=== PATIENT | male | born 1975 | race Caucasian/White ===

== ENCOUNTER 2021-12-02 11:36 | Inpatient (IN) | payer OTHER ==
[~2021-12-02] VITALS: Ht 180.3 cm; Wt 66.5 kg
[~2021-12-02 11:36] MED LIST: BACTRIM DS TAB1 EACH PO; CEPHALEXIN500 M1 PO; LANTUS100 UNITS/ SUB-Q; NOVOLOG FL100 UNIT/1 SUB-Q; ULTRAM50 MG PO
--- OUTSIDE RECORDS SUMMARY | 2021-12-02 11:38 | XMS ---
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 Care History Medical/Surgical 11/27/2021 [facility] - CHW RECEIVED CASE MANAGEMENT CONSULT TO HELP PATIENT FIND A PCP, INSURANCE AND FOLLOW UP WITH WOUND CARE . -PATIENT HAS DMAP THAT IS NOW ACTIVE. -CHW CALLED PATIENT 2X AND LEFT A VOICEMAIL. WAITING ON A RETURN CALL. Dennys VISIT COUNT (12 MO.) [facility] [address] [place] [address] TOTAL 4 NOTE: Visits indicate total known visits. 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 (L) LEG PAIN 0. Anesthesia of skin 0. Pain in left leg 1. Type 2 diabetes mellitus with hyperglycemia 2. 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 Nicotine dependence, cigarettes, uncomplicated 2. Allergy status to penicillin 2. Cellulitis of left lower limb 2. snf (current) use of insulin INPATIENT VISIT TRACKING (12 MO.) No inpatient visits to display in this time frame [email or web address]
[2021-12-02] MEDS ORDERED: NEURONTIN100 MG PO (12:02)
--- NOTE | 2021-12-02 16:45 | NUR ---
REPORT RECEIVED FROM FULL TIME PARAMEDIC. PT. ARRIVED VIA STRETCHER. PT. REPORTS 10/10 PAIN IN LEFT FOOT THAT IS BURNING. ADMIN IVP DILAUDID. HE IS ALERT AND ORIENTED. IV WNL AND FLUSHES. PEDAL PULSE WEAK IN LLE, WARM AND MADELAINE. SCABS SCATTERED ON RLE. THIRD TOE ON LEFT FOOT IS BLACK/PURPLE AND PT HAS NO FEELING. FOOT ELEVATED WITH PILLOWS. VITALS STABLE. PT. DENIES NAUSEA. IV SITE WNL AND FLUSHES. PT. ASSISTED WITH AMBULATING TO THE RESTROOM AND TOLERATED WELL. DISCUSSED SAFETY, MEDS, POC. PT. LEFT RESTING WITH CALL LIGHT IN REACH.
--- NOTE | 2021-12-02 19:14 | NUR ---
RECEIVED REPORT FROM DAY SHIFT RN. PATIENT IS RESTING IN BED WITH EYES CLOSED, RR 17. CALL LIGHT IN REACH.
--- NOTE | 2021-12-02 20:22 | NUR ---
PATIENT RATES PAIN AT A 10/10 IN HIS LEFT FOOT. MD AT THE [facility] TO ASSES TOE. IV INFUSING PER ORDER.
--- NOTE | 2021-12-02 20:55 | NUR ---
PATIENT ASSESEMENT COMPLETED. MD AT THE BEDSIDE AND REMOVED PATIENTS 3RD TOE ON LEFT FOOT. ASSISTED MD. PATIENT TOLERATED ACTIVITY WELL. VITALS TAKEN AND RECORDED. INTAKE AND OUTPUT RECORDED. IV INFUSING PER ORDER. PATIENT DENIES ANY NEEDS. CALL LIGHT IN REACH. ALL CULTURES AND SPECIMENS LABELED AND SENT TO LAB PER MD ORDER. SCHDULED MEDICATIONS GIVEN PER ORDER.
--- NOTE | 2021-12-02 22:07 | NUR ---
PATIENT REPORTS 10/10 PAIN IN LEFT LOW EXT. PATIENT GIVEN PRN PAIN MEDICATION PER ORDER. IV INFUSING PER ORDER. PATIENT DENIES ANY FURTHER NEEDS. CALL LIGHT IN REACH.
--- NOTE | 2021-12-02 23:49 | NUR ---
PATIENT IS RESTING IN BED WITH EYES CLSOED, RR 16. CALL LIGHT IN REACH.
--- NOTE | 2021-12-03 00:06 | NUR ---
PATIENT RATES PAIN AT A10/10 IN HIS LLE. PATIENT GIVEN PRN PAIN MEDICATION PER ORDER. PATIENT DENIES ANY FURTHER NEEDS. CALL LIGHT IN REACH. IV INFUSING PER ORDER.
--- NOTE | 2021-12-03 00:59 | NUR ---
PATIENT REPOSITIONED IN BED. PATIENT PROVIDED SIPS OF WATER. NO FURTHER NEEDS NOTED. CALL LIGHT IN REACH.
--- NOTE | 2021-12-03 01:56 | NUR ---
VITALS TAKEN AND RECORDED. INTAKE AND OUTPUT RECORDED. PATIENT REPORTS 10/10 PAIN. PATIENT GIVEN PRN PAIN MEDICATION PER ORDER. IV INFUSING PER ORDER.
--- NOTE | 2021-12-03 03:36 | NUR ---
PATIENT IS RESTING IN BED. NO NEEDS NOTED. CALL LIGHT IN REACH.
--- NOTE | 2021-12-03 06:17 | NUR ---
PATIENT ASSISTED TO THE RESTROOM A SBA. PATIENT ABLE TO VOID. PATIENT IS BACK IN BED RESTING IN BED. VITALS TAKEN AND RECORDED. INTAKE AND OUTPUT RECORDED. IV INFUSING. PATIENTS DRESSING REMOVED OFF LEFT FOOT PER MD ORDER. PATIENT REPORTS 10/10 PAIN IN HIS LEFT LOW EXT. PRN PAIN MEDICATION GIVEN PER ORDER. NO FURHTER NEEDS NOTED. CALL LIGHT IN REACH.
--- NOTE | 2021-12-03 06:42 | NUR ---
MD AT BEDSIDE. ASSISTED MD IN DRESSING CHANGE. PATIENT TOLERATED DRESSING CHANGE WELL. NO NEEDS NOTED. CALL LIGHT IN REACH.
--- NOTE | 2021-12-03 07:30 | NUR ---
PATIENT RESTING IN BED VISITING WITH HIS SISTER. PATIENT REQUESTING PAIN MEDS FOR 10/10 FOOT PAIN. REPORT GIVEN TO THIS RN BY JEANNE CALDWELL. PATIENT HAS NO OTHER CARE NEEDS AT THIS TIME. THIS RN WILL BE BACK WITH PAIN MEDICATION.
--- NOTE | 2021-12-03 08:00 | NUR ---
PATIENT GIVEN 1MG SIVP DILAUDID FOR LLE PAIN 07/15. NO AM INSULIN NEEDED. PATIENT IS SITTING UP IN BED TO EAT BREAKFAST. COFFE GIVEN TO PATIENT AND HIS SISTER. CALL LIGHT IN REACH AND NO OTHER NEEDS AT THIS TIME.
[2021-12-03] MEDS ORDERED: GABAPENTIN300 MG PO (08:29)
[2021-12-03] MEDS ORDERED: TRAMADOL HCL50 MG PO (08:41)
--- NOTE | 2021-12-03 09:29 | NUR ---
PATIENT SITTING UP IN BED RESTING AT THIS TIME, VISITOR IN ROOM. PATIENT IND. IN ROOM. VITALS AND I&O'S CHARTED. RN IN ROOM AT THIS TIME. CALL LIGHT IN REACH. NO FURTHER NEEDS AT THIS TIME.
--- NOTE | 2021-12-03 09:30 | NUR ---
PATIENT JUST FINISHED WALKING AROUND THE MED/SURG UNIT FOR SOME EXERCISE. PATIENT CALLED FOR PAIN MEDICATION 10/10 PAIN IN LLE. PO PAIN MEDICATION GIVEN. PATIENT ORDERED LUNCH AND DINNER. VS ARE STABLE. PATIENT HAS NO OTHER NEEDS AT THIS TIME. CALL LIGHT IS IN REACH AND PATIENT'S SISTER IS AT BEDSIDE.
--- NOTE | 2021-12-03 10:30 | NUR ---
INTO PATIENT ROOM TO COMPLETE ASSESSMENT. PATIENT IN MRI
[2021-12-03] MEDS ORDERED: LANTUS100 UNITS/ SUB-Q (10:31)
--- NOTE | 2021-12-03 10:31 | NUR ---
MED REC COMPLETE
--- NOTE | 2021-12-03 10:36 | NUR ---
THIS RN SALINE LOCKED PATIENT'S IV TO GO TO MRI. MRI WILL BE HERE SHORTLY WITH A WHEELCHAIR. PATIENT DENIES ANY OTHER CARE NEEDS AT THIS TIME. PATIENT VISITING WITH HIS SISTER.
--- NOTE | 2021-12-03 11:12 | NUR ---
PATIENT REMAINS IN MRI AT THIS TIME. SISTER REMAINS IN PATIENT'S ROOM.
--- NOTE | 2021-12-03 12:00 | NUR ---
IV VANCO INFUSING FOR ONE HOUR. DR. HOLCOMB IN TO SEE PATIENT.
--- NOTE | 2021-12-03 12:35 | NUR ---
PT HAS BEEN TAKEN TO IMAGING FOR MRI. WILL CHECK BACK
--- NOTE | 2021-12-03 13:27 | NUR ---
INTO PATIENTS ROOM TO COMPLETE ASSESSMENT, PATIENT SLEEPING WITH LIGHTS OUT. PATIENT DOES NOT WAKE TO VOICE, WILL RETURN TO ASSESS.
--- NOTE | 2021-12-03 14:30 | NUR ---
INTO ROOM TO SPEAK WITH PATIENTS DAUGHTERS YOSELIN AND JOSE. DISCUSSED PATIENT RETURN TO [facility] TOMORROW. PATIENTS DAUGHTER ASKING IF [facility] HAS PLANS TO RESTART PT/OT WITH THE PATIENT THEY FEEL SHE WAS DISCHARGED FROM THE PROGRAM TOO SOON. THEY ADVISED THAT THEY ARE AWARE THAT FULL RECOVERY OF THE PATIENT AND AGGRESSIVE THERAPIES ARE NOT THE GOAL, BUT THEY WOULD LIKE FOR THEIR MOTHER TO BE ABLE TO FEED HERSELF IF POSSIBLE. THIS RN DISCUSSED WITH THE FAMILY THAT I WILL SPEAK WITH DR. HOLCOMB ABOUT ORDERING PT/OT ON DISCHARGE AND SPEAK WITH THE T STAFF PRIOR TO PATIENT DISCHARGE. PATIENTS DAUGHTERS STATES THAT STAFF AT [facility] WOULD OFTEN GIVE THE PATIENT THE CHOICE TO PARTICIPATE IN THERAPY OR STAY IN BED AND THEY FEEL THERE WAS LITTLE ENCOURAGEMENT FOR HER TO PARTICIPATE. PATIENTS DAUGHTERS WOULD ALSO LIKE A PLAN TO BE IN PLACE FOR ADMINISTRATION OF MEDICATIONS WHEN THE PATIENT RETURNS TO [facility] THE PATIENTS ABILITY TO SWALLOW HAS CHANGED. ADVISED PATIENT DAUGHTER THAT I WILL SPEAK WITH DR. HOLCOMB AND SANG ANGEL FOR DISCHARGE PLAN.
--- NOTE | 2021-12-03 14:47 | NUR ---
PATIENT IN BED TALKING WITH CASE MANAGMENT AT THIS TIME. VITALS AND I&O'S CHARTED. CALL LIGHT IN REACH. NO FURTHER NEEDS AT THIS TIME.
--- NOTE | 2021-12-03 15:00 | NUR ---
INTO PATIENT ROOM, PATIENT AWAKE TALKING ON THE PHONE. CASE MANAGEMENT ASSESSMENT COMPLETED. PATIENT STATES HE IS CURRENTLY LIVING WITH A FRIEND WHO HE REFERS TO HIS "FATHER." PATIENT RECENTLY MOVED UP HERE FROM [place] ABOUT 8 WEEKS AGO. PATIENT HAS BEEN SET UP WITH [employer] AND HAS A PENDING APPOINTMENT WITH GENNARO WILLIAMSON PA-C TO ESTABLISH CARE. PATIENT REQUESTING INFORMATION ABOUT SERVICES PROVIDED WITH HIS [employer] COVERAGE, ASSISTANCE WITH MEDICATION PAYMENT AND ASSISTANCE WITH ECONOMIC SUPPORT IN GENERAL. REFERRAL PLACED TO [facility] TO ASSIST PATIENT WHEN DISCHARGED. PATIENT STATES HE MOVED TO THE FROM [facility] 6 YEARS AGO AND HAS HAD DIFFICULTY WITH AQUIRING ASSISTANCE THEY TELL HIM HE HAS "NO WORK CREDITS." PATIENT DOES NOT NORMALLY REQUIRE DME, BUT IS HAVING DIFFICULTY AMBULATING POST AMPUTATION. DEMOGRAPHIC INFORMATION CONFIRMED. PATIENT STATES THAT DR. DE GUZMAN PLANS TO RETURN PATIENT TO OR BASED ON THE MRI HE HAD TODAY. DISCUSSED OPTIONS FOR COMMUNITY ASSISTANCE WITH THE PATIENT. WILL CONTINUE TO MONITOR FOR DISCHARGE NEEDS FOLLOWING UPCOMING SURGICAL PROCEDURE.
--- NOTE | 2021-12-03 15:52 | NUR ---
PATIENT REQQUESTED A NEW IV HIS ALARMS ALL THE TIME BEING IN THE AC SPACE OF HIS RIGHT ARM. THAT IV WAS SALINE LOCKED AND A NEW 22G IV STARTED IN THE RFA WITH 2 ATTEMPTS. 1MG SIVP DILAUDID GIVEN FOR LLE PAIN 10/10. PATIENT REMAINS CALM AND NO FACIAL GRIMACE. PATIENT DENIED ANY OTHER CARE NEEDS FROM ME AT THIS TIME. CALL LIGHT IN REACH.
--- NOTE | 2021-12-03 17:22 | NUR ---
PATIENT GIVEN 1MG SIVP DILAUDID FOR 10/10 LEFT FOOT PAIN. HAS AARIVED TO CHANGE THE PATIENT'S DRESSING AND TALK WITH HIM ABOUT SURGICAL OPTIONS. CALL SAMARA GOMEZ.
--- NOTE | 2021-12-03 17:50 | NUR ---
PATIENT GIVEN 10MG PO OXYCODONE FOR 10/10 LEFT FOOT PAIN AFTER JUST CHANGED THE DRESSING. TALKING WITH PATIENT ABOUT SURGICAL OPTIONS AT THIS TIME. CALL LIGHT IN REACH.
--- NOTE | 2021-12-03 19:24 | NUR ---
PATIENT CURRENTLY UP WALKING THE MED/SRG UNIT WITH HIS IV POLE. THIS RN GAVE SHIFT REPORT TO JEANNE CALDWELL. THIS RN SIGNING OFF PATIENT'S CARE AT THIS TIME.
--- NOTE | 2021-12-03 19:31 | NUR ---
RECEIVED REPORT FROM DAY SHIFT RN. PATIENT IS RESTING IN BED FAMILY PRESENT AT THE BEDSIDE. NO NEEDS NOTED. CALL LIGHT IN REACH.
--- NOTE | 2021-12-03 20:34 | EKG ---
[facility] [address] [facility] [place], [place] [address] Signed Normal sinus rhythm Normal ECG No previous ECGs available Confirmed by CHAZ HOLCOMB MD ([id number]) on 12/03/2021 8:34:45 PM Electronically Signed By: CHAZ HOLCOMB MD 12/03/212033 PATIENT NAME: MELISSA BENSON Electrocardiogram DATE OF : 73 PHYSICIAN: CHAZ HOLCOMB MD REPORT #: [id number] REPORT IS CONFIDENTIAL AND NOT TO BE RELEASED WITHOUT AUTHORIZATION
--- NOTE | 2021-12-03 21:20 | NUR ---
PATIENT ASSESMENT COMPELTED. DRESSING ON LLE C/D/I AND NO DRAINGE NOTED. VITALS TAKEN AND RECORDED. INTAKE AND OUPUT RECORDED. PATIENT RATES PAIN AT A 10/10 IN HIS LLE. PRN PAIN MEDICAITON GIVEN PER ORDER. PATIENTS IV INFUSING PER ORDER. PATIENT DENIES ANY NEEDS. CALL LIGHT IN REACH.
--- NOTE | 2021-12-03 22:14 | NUR ---
PATIENT RATES PAIN AT A 10/10 IN LLE. PRN PAIN MEDICATION GIVEN PER ORDER. PATIENT DENIES ANY FURTHER NEEDS. SNACK PROVIDED. CALL LIGHT IN REACH.
--- NOTE | 2021-12-03 23:52 | NUR ---
PATIENT REPORTS 10/10 PAIN IN HIS LLE. PATIENT GIVEN PRN PAIN MEDICATION PER ORDER. MELATONIN PRN GIVEN PER ORDER. PATIENTS IV INFUSING PER ORDER. NO FURTHER NEEDS NOTED. CALL LIGHT IN REACH.
--- NOTE | 2021-12-04 01:59 | NUR ---
PATIENT IS RESTING IN BED WITH EYES CLSOED, RR 19. CALL LIGHT IN REACH.
--- NOTE | 2021-12-04 04:00 | NUR ---
PATIENT RATES PAIN IN HIS LLE AT A 10/10. PRN PAIN MEDICATION GIVEN PER ORDER. PATIENT DENIES ANY FURTHER NEEDS CALL LIGHT IN REACH.
--- NOTE | 2021-12-04 05:47 | NUR ---
PATIENT RESTED WELL DURING THE LATER PART OF THE SHIFT. PATIENT IS ON A 60G CARB DIET, TOLERATING WELL, AND NO NAUSEA NOTED. PATIENT IS IND IN ROOM. PATIENT HAS BS. DRESSING IN LLE. BS CHECKS AND SS PER ORDER. ELLEVATE LLE ON PILLOWS. PATIENT IS ON RA. IV FLUIDS INFUSING PER ORDER
--- NOTE | 2021-12-04 06:11 | NUR ---
PATIENTS VITALS TAKEN AND RECORDED. INTAKE AND OUTPUT RECORDED. PATIENTS MORNING MEDICATIONS GIVEN PER ORDER. IV INFUSING PER ORDER. PATIENT RATES PAIN IN HIS LLE AT A 10/10. PRN PAIN MEDICATION GIVEN PER ORDER. NO FURTHER NEEDS CALL LIGHT IN REACH.
--- NOTE | 2021-12-04 07:30 | NUR ---
PATIENT TALKING WITH AND PATIENT HAS DECIDED TO HAVE A BKA SURGERY ON THE LEFT LEG AND WILL BE CONSULTED. THIS RN RECEIVED REPORT FROM JEANNE CALDWELL. PATIENT HAS NO CARE NEEDS FROM THIS RN AT THIS TIME. CALL LIGHT IN REACH.
--- NOTE | 2021-12-04 08:05 | NUR ---
IN TALKING WITH PATIENT ABOUT OTHER DIAGNOSTIC TESTS NEEDED BEFORE A DECISION WILL BE MADE TO DO SURGERY HERE. 1MG SIVP DILAUDED GIVEN FOR 10/10 PAIN. PATIENT'S PAIN IS ALWAYS 10/10 PER PATIENT. NO ELEVATED VS AND NO FACIAL GRIMACE NOTED. NO FURTHER CARE NEEDS NOTED FOR THIS RN TO PERFORM. CALL LIGHT IS IN REACH.
--- NOTE | 2021-12-04 08:45 | NUR ---
PATIENT SL AND PATIENT TAKEN TO DIAGNOSTIC IMAGING IN A WHEELCHAIR BY RADIALOGY STAFF.
--- NOTE | 2021-12-04 09:30 | NUR ---
Spoke with Almas and reviewed history. Dr. Perales in and explained to patient, does not plan on completing amputation as pt needs to go to a higher level of care for surgery. This is very upsetting to the pt. He begins complaining about the medical system and not getting medicaid. Dr. Perales finished and left, this also angers pt. Pt complains of not having enough pain medication. He is also stating he should just discharge. I attempted to give him options. Dr. Perales states he should keep his appt to establish care and have them refer him on to [place] for amputation. Pt wanting to have surgery immediately, we discussed this is a chronic wound. The Dr. would not be able to transfer him as he is not emergent. Pt does not understand this. Wanting to be tranferred as soon as possible, we then discussed even if we call the transfer center they would not accept him as there are not beds available for nonemergent patients. Again reviewed chronic vs acute. Pt feels the [place] has a very poor medical system. He then asks who he can get to help with dental care. I will give the numbers to him and for [facility] free transport. Pt then requesting help to apply for SSD. Encouraged pt to look up how to apply for SSI abd to call the 1800 number.
--- NOTE | 2021-12-04 10:53 | NUR ---
PATIENT HAVING 10/10 LLE PAIN. 1MG SIVP DILAUDID GIVEN FOR THE PAIN. PATIENT'S VANCO UP AND RUNNING. PATIENT ON THE PHONE TALKING TO HIS MOTHER IN [place]. CALL LIGHT IN REACH NO OTHER CARE NEEDS AT THIS TIME.
--- NOTE | 2021-12-04 12:47 | NUR ---
PATIENT IS UPSET HE SAYS BECAUSE HAS INFORMED HIM HE WILL BE GOING HOME, HAVE TO GET IN TO AN AAPOINTMENT WITH A PCP TO REFER HIM TO A SURGEON IN [place]. PATIENT SAYS HE MADE THE DECISION TO HAVE THE BKA DONE AND PREPARED HIS WHOLE FAMILY, AND NOW HE IS BEING SENT HOME. I TOLD PATIENT I DID NOT HAVE ANY DC ORDERS FOR HIM YET, AND THAT I KNOW THAT HAS TO BE VERY FRUSTRATING TO HIM. PATIENT HAVING 10/10 LLE PAIN. TOES ON LEFT FOOT STILL HAVE CAP REFILL LESS THAN 3 SECONDS AND 2ND TOE IS NOT RED, SO IT LOOKS LIKE THE ANTIBIOTICS ARE HELPING. 1MG SIVP DILAUDID GIVEN. PATIENT WALKED TO THE BATHROOM AND BACK TO BED WITH IV POLE AND HE IS GOING TO TRY AND TAKE A NAP. CALL LIGHT IN REACH, LUNCH TRAY REMOVED, PATIENT HAS NO OTHER CARE NEEDS AT THIS TIME.
--- NOTE | 2021-12-04 13:30 | NUR ---
Spoke with Dr. Best and she requests I contact [facility] for this pt for wound care and IV antibiotics, with need to have amputation when he can be seen by podiatry. Called [facility] Darlene of [place].
--- NOTE | 2021-12-04 13:59 | NUR ---
PATIENT IN BED RESTING AT THIS TIME. VITALS AND I&O'S CHARTED. CALL LIGHT IN REACH. NO FURTHER NEEDS AT THIS TIME.
--- NOTE | 2021-12-04 14:13 | NUR ---
PT ASLEEP-DID NOT WAKE TO KNOCK OR VOICE. JEANNE CORONA WILL KEEP ME INFORMED AND WILL TRY AGAIN TO VISIT
--- NOTE | 2021-12-04 15:45 | NUR ---
PATIENT CALLED FOR PAIN MEDICATION FOR LLE PAIN 07/15. 10MG PO OXYCODONE GIVEN. PATIENT ALSO REQUESTED A SNACK AND LOW CALORIE GRANOLA BAR AND DIET SODA GIVEN. PATIENT UP TO THE BATHROOM AND BACK TO BED INDEPENDENTLY. PATIENT DENIED ANY OTHER CARE NEEDS AT THIS TIME. CALL LIGHT IS IN REACH.
--- NOTE | 2021-12-04 16:01 | PATH ---
[facility] [address] [place], [place] [address] Signed SPECIMEN(S): A LEFT 3RD TOE SPECIMEN SOURCE: A. LEFT 3RD TOE CLINICAL HISTORY: Sepsis due to cellulitis, diabetic foot wound, gangrene. FINAL PATHOLOGIC DIAGNOSIS: Left third toe, amputation: - Skin, soft tissue, and bone with gangrenous necrosis and acute inflammation. - Soft-tissue margin involved with acute inflammation. - Bone margin free of inflammatory changes. DDF:em:C2NR MICROSCOPIC EXAMINATION: Histologic sections of all submitted blocks are examined by light microscopy. These findings, together with the gross examination, support the pathologic diagnosis. GROSS DESCRIPTION: The specimen, labeled "PC, left 3rd toe," is received in formalin and consists of a toe that measures 4.5 x 1.7 x 1.5 cm. The level of the amputation is within the MTP joint. The bone resection margin is articulated. Skin is violaceous and wrinkled. It shows a defect that measures 0.8 x 0.2 cm. Skin surgical margins are inked. Specimen is perpendicularly sectioned through the skin defect and upon sectioning shows pink-allen, soft underlying bone tissue. Specimen is left for decalcification in Decal Stat prior to processing. Perpendicular section and skin resection margins are submitted in single cassette (A1). JS (under the direct supervision of a pathologist) The Gross Description was prepared using a voice recognition system. The report was reviewed for accuracy; however, sound-alike word errors, addition and/or deletions may occur. If there is any question about this report, please contact Client Services. PERFORMING LABORATORY: The technical component was performed by [facility], [address] [place] [id number] ([facility]: Tamia Sherwood MD; CLIA# [id number]). Professional interpretation was performed by PATIENT NAME: MELISSA BENSON PATHOLOGY DATE OF : 73 REPORT #: [id number] PHYSICIAN: [facility] PCP: GENNARO WILLIAMSON PA-C REPORT IS CONFIDENTIAL AND NOT TO BE RELEASED WITHOUT AUTHORIZATION [address] [address] Signed [facility], [address] [place] [id number] ([facility]: Tamia Sherwood MD; CLIA# [id number]). Diagnostician: Karlos Cooley DO Pathologist Electronically Signed 12/04/2021 Copies: ~ PATIENT NAME: MELISSA BENSON PATHOLOGY DATE OF : 73 REPORT #: [id number] PHYSICIAN: [facility] PCP: GENNARO WILLIAMSON PA-C REPORT IS CONFIDENTIAL AND NOT TO BE RELEASED WITHOUT AUTHORIZATION
--- NOTE | 2021-12-04 16:12 | NUR ---
Received call from Kassie Machado at [facility] in [place]. She request I send the chart. UPdated pt will more than likely need an amputation aboe the knee. She states this is possible as their Dr.s are from [facility] that see the [facility] pts. Face sheet, H&P, progress notes, photos of wound, faxed to Kassie.
--- NOTE | 2021-12-04 17:11 | NUR ---
PATIENT GIVEN 1MG SIVP DILAUDID FOR 10/10 LLE PAIN. THIS RN HELPED PATIENT ORDER BREAKFAST AND ORDER SOMETHING DIFFERENT FOR DINNER HE COULD NOT EAT IT HAVING NO TEETH. CALL LIGHT IN REACH. NO OTHER CARE NEEDS AT THIS TIME.
--- NOTE | 2021-12-04 18:06 | NUR ---
PATIENT IND. IN ROOM. SHOWER SUPPLIES PROVIDED FOR PATIENT, PATIENT WILL SHOWER IN A BIT. VITALS AND I&O'S CHARTED. CALL LIGHT IN REACH. NO FURTHER NEEDS AT THIS TIME.
--- NOTE | 2021-12-04 18:06 | NUR ---
PATIENT SL AT THIS TIME BY THIS RN AND SHAQUILLE MANUEL WRAPPING IV SITES AND LEFT FOOT SO PATIENT CAN TAKE A SHOWER. PATIENT HAS CONTINUED TO NEED PAIN MEDICATION EVERY 1-2HRS WITH 10/10 LLE PAIN. MD'S ARE AWARE OF THIS, BUT PAIN MED ORDERS REMAIN THE SAME. PATIENT HAD A ROUGH DAY EMOTIONALLY. PATIENT THOUGHT HE WAS GOING FOR AN AMPUTATION TODAY AND IT TURNED OUT IT WAS NOT GOING TO HAPPEN TODAY AND THAT IT IS NOT GOING TO HAPPEN AT THIS HOSPITAL. EDWARD FROM CASE MANAGEMENT VISITED WITH PATIENT TODAY AND THINKS SHE MAY HAVE A PLACE WHERE PATIENT CAN BE ADMITTED IN THE INTERIM UNTIL HE CAN BE SCHEDULED FOR THE AMPUTATION. PATIENT IN BETTER SPIRITS THIS EVENING.
--- NOTE | 2021-12-04 19:36 | NUR ---
RECEIVED REPORT FROM DAY SHIFT RN. PATIENT IS RESTING IN BED WATCHING TV. NO NEEDS NOTED. CALL LIGHT IN REACH.
--- NOTE | 2021-12-04 20:58 | NUR ---
PATIENT ASSESMENT COMPELTED. VITALS TAKEN AND RECORDED. INTAKE AND OUTPUT RECORDED. PATIENT REPOSRTS 10/10 PAIN IN HIS LLE. PATIENT GIVEN PRN PAIN MEDICATION PER ORDER. PATIENTS IV INFUSING PER ORDER. PATIENTS SCHEDULED EVENING MEDICATIONS GIVEN PER ORDER. PATIENT PROVIDED WITH FRESH ICE WATER AND SNACK. NO FURTHER NEEDS NOTED. CALL LIGHT IN REACH.
--- NOTE | 2021-12-04 22:17 | NUR ---
PATIENTS SCHEDULED ABX INFUSING PER ORDER. PATIENT REPORTS 10/10 PAIN IN HIS LLE. PRN PAIN MEDICATION GIVEN PER ORDER. NO FURTHER NEEDS NOTED. CALL LIGHT IN REACH.
--- NOTE | 2021-12-05 01:00 | NUR ---
PATIENT IS RESTING IN BED WITH EYES CLOSED, RR 16. CALL LIGHT IN REACH.
--- NOTE | 2021-12-05 01:54 | NUR ---
PATIENT ABX COMPLETED INFUSING. IV INFUSING PER ORDER. PATIENT REPORTS 10/10 PAIN IN HIS LLE. PRN PAIN MEDICATION GIVEN PER ORDER. URINAL EMPTIED. NO FURTHER NEEDS NOTED. CALL LIGHT IN REACH.
--- NOTE | 2021-12-05 02:56 | NUR ---
PATIENT REPORTS PAIN IN HIS LLE AT A 10/10. PATIENT GIVEN PRN PAIN MEDICATION PER ORDER.
--- NOTE | 2021-12-05 05:17 | NUR ---
VITALS TAKEN AND RECORDED. INTAKE AND OUTPUT RECORDED. IV ABX INFUSING PER ORDER. PATIENT RATES PAIN AT A 10/10 IN HIS LLE. PATIENT GIVEN PRN PAIN MEDICATION PER ORDER. PATIENT PROVIDED WITH FRESH ICE WATER. NO FURTHER NEEDS NOTED. CALL LIGHT IN REACH.
--- NOTE | 2021-12-05 05:20 | NUR ---
SALMA RESTED WELL DURING THE LATER PART OF THE SHIFT. PATIENT IS ON A 60G ARB DIET, TOLERATING WELL, AND NO NAUSEA NOTED. PATIENT IS IND IN ROOM. SALMA HAS BS. DRESSING ON LLE. BS CHECKS AND SS PER ORDER. ELLEVATE LLE ON ILLOWS. PATIENT IS ON RA. IV FLUIDS INFUSING PER ORDER. PRN PAIN MEDICATION GIVEN.
--- NOTE | 2021-12-05 08:10 | NUR ---
THIS RN IN PTS ROOM TO GIVE MORNING MEDS. PT ALSO REQUESTING PAIN MEDS. DILUADID CAN BE GIVEN. THIS RN PROVIDED PT WITH 1MG OF DILUDID. PT ASKED THIS RN TO PUSH IN THE PORT CLOSER TO HIM, THIS RN TO DO SO BUT SLOWLY DESPITE PT REQUESTING IT TO BE GIVEN FASTER. PT THEN DICUSSED WITH THIS RN HIS ENTIRE MEDICAL STORY OF HIS FOOT. PT THEN MADE COMMENTS ABOUT HOW HE DID NOT LIKE 'S BEDSIDE MANNER, THIS RN DISCUSSED WITH PT THAT NOT ALL PERSONALITIES MESH WELL. PT THEN MADE COMMENTS THAT "A COCKROACH IS SMARTER THAN HER" THIS RN DISCUSSED WITH PT THAT RESPECT IS STILL NEEDED WHEN IN HOSPITAL. PT REQUESTING TO NOT HAVE MD KNAPP- AWARE AND RICHARD ANGEL AWARE WELL.
--- NOTE | 2021-12-05 09:20 | NUR ---
Gave pt a list of dentist in [place] who take OHP. Also gave him the number for [facility] free transport. UPdated I have secure emailed his pictures of his foot to [facility] as they were unable to view the scanned photos. I will let him know when I hear back from them.
--- NOTE | 2021-12-05 10:30 | NUR ---
THIS RN IN PTS ROOM TO PROVIDE PT WITH 10MG OXY PER PT REQUEST. PTS SISTER IN ROOM, BOTH DISCUSSING HOUSING. PT SITTING IN BED RELAXED HAVING A UNSTRAINED CONVERSATION. PT STATES HIS PAIN IS 10/10 AND SQUINTED UP FACE WHEN ASKED. WHEN THIS RN WALKED IN PT WAS UP WALKING AROUND ROOM.
--- NOTE | 2021-12-05 12:00 | NUR ---
Spoke with Kassie from [employer]. She did not receive my email. Resent and included Consult from Dr. Prescott on 12/04/21, medication list, and orders for wound care from Dr. March.
--- NOTE | 2021-12-05 12:00 | NUR ---
THIS RN IN PTS ROOM WITH MARCIO ANGEL TO CHANGE PTS WOUND. PT STATES TO BE CAREFUL WHEN TAKING OFF DRESSING BUT DID NOT WINCE WHEN THE DRESSING ACTUALLY CAME OFF. BOTH WOUNDS- DORSAL AND PLANTAR APPEAR TO BE MACERATED. THIS RN ABLE TO FLUSH BOTH WOUNDS- WHEN FLUSHED FROM THE DORSAL WOUND THE FLUSH DOES FLOW TO THE PLANTAR WOUND. DRESSING FOLLOWED OUT PER ORDERS. PT TOLERATED WELL. PT FOOT ELEVATED AFTER DRESSING CHANGE. PT ABLE TO CARRY OUT PROPER CONVERSATION BUT DOES STATE THAT HE IS HAVING PAIN - NEURO PAIN. IN ROOM TO DISCUSS PLAN OF CARE WITH PT. PT RELAXED AND HAVING GOOD CONVERSATION WITH .
--- NOTE | 2021-12-05 13:57 | NUR ---
PT REQUESTED I LET HIM REST, WILL FOLLOW
--- NOTE | 2021-12-05 19:30 | NUR ---
SHIFT REPORT GIVEN TO THIS RN BY JEANNE DOMÍNGUEZ. PATIENT RESTING IN BED WATCHING TV AND TALKING ON THE PHONE. NO NURSING CARE NEEDS AT THIS TIME. CALL LIGHT IS IN REACH.
--- NOTE | 2021-12-05 20:20 | NUR ---
PATIENT CALLED [facility] REQUESTING PAIN MEDS AND WATER. NURSE NOTIFIED AND WATER WAS PROVIDED. CALL LIGHT LEFT WITHIN REACH. NO OTHER IMMEDIATE NEEDS AT THIS TIME.
--- NOTE | 2021-12-05 21:16 | NUR ---
PATIENT CALLED FOR PAIN 10/10 IN THE LLE. 1MG SIVP DILAUDID GIVEN. ANTIBIOTICS HUNG AND ASSESSMENT COMPLETE. PATIENT REQUESTING THAT THIS RN CHANGED HIS LLE DRESSING IN THE MORNING HE SAYS IT DOES NOT FEEL STABLE HE WOULD LIKE IT. INFORMED PATIENT WE WOULD REVISIT THIS IN THE MORNING THE DRESSING LOOKS TO BE IN PLACE AND STABLE FROM THIS RN'S VIEW POINT. URINAL EMPTIED. PATIENT ALSO GIVEN A CUP OF HERBAL TEA TO TRY AND RELAX. PATIENT HAD NO OTHER CARE NEEDS AT THIS TIME. CALL LIGHT IN REACH AND LIGHTS TURNED DOWN AT PATIENT REQUEST.
--- NOTE | 2021-12-05 22:49 | NUR ---
CALL LIGHT ANSWERED, PT HAD RECENTLY BEEN UP TO BATHROOM TO VOID, URINAL EMPTIED OF 575ML YELLOW URINE. PT REQUESTS PAIN MEDICATION FOR 10/10 PAIN TO LEFT LEG/FOOT, 10MG OXYCODONE GIVEN. PRIMARY RN, CHLOE TONEY.
--- NOTE | 2021-12-06 00:16 | NUR ---
PATIENT CALLED TO HAVE HIS URINAL EMPTIED AND REQUESTING PAIN MEDICATION FOR 10/10 LLE PAIN. THIS WAS GIVEN AND URINAL DUMPED AND 0000 ANTIBIOTIC HUNG. PATIENT HAD NO OTHER CARE NEEDS AT THIS TIME. CALL LIGHT IS IN REACH.
--- NOTE | 2021-12-06 00:56 | NUR ---
PATIENT RESTING QUIETLY AT THIS TIME. EYES ARE CLOSED, RESPIRATIONS ARE REGULAR AND EVEN. CALL LIGHT IN REACH.
--- NOTE | 2021-12-06 03:00 | NUR ---
PATIENT RESTING QUIETLY, EYES CLOSED, RESPIRATIONS REGULAR AND EVEN, CALL LIGHT IN REACH. PATIENT HAS NO CURRENT CARE NEEDS AT THIS TIME.
--- NOTE | 2021-12-06 04:00 | NUR ---
PATIENT CALLED BECAUSE HE WAS COLD AND 2 WARM BLANKEST GIVEN. PATIENT WAS AFEBRILE. 4 ALLEVYNS PLACED ON THE LEFT DARBY AREA WHERE SWELLING HAS CAUSED SOME OPEN AREAS. LEFT CHRISTOPHE DRESSING CHANGED THE PREVIOUS DRESSING HAD SOAKED THROUGH. SOME PURULENT DRAINAGE NOTED AND HOLE WHERE 3RD TOE WAS WAS IRRIGATED WITH SALINE AND RAN THROUGH THE FOOT AND OUT THE SORE ON THE BALL OF THE FOOT. DRAIN SPONGES FOLDED OVER WOUND OPENINGS AND WRAPPED WITH KERLIX AND COBAN. PATIENT HAD NO OTHER NEEDS AT THIS TIME. CALL LIGHT IS IN REACH.
--- NOTE | 2021-12-06 05:52 | NUR ---
THIS RN BACK IN TO CHECK ON PATIENT. PATIENT HAVE THE FULL BODY SHAKES AGAIN, FACIAL GRIMACE, TENSE MUSCLES AND CLENCHED FISTS. PATIENT TURNED TO HIS LEFT SIDE AND 25MCG SIVP FENTANYL GIVEN. ATTENDS CHANGED. LAB HERE TO DRAW AM LABS. BED ALARM IS ON AND CALL LIGHT IN REACH.
--- NOTE | 2021-12-06 06:05 | NUR ---
PATIENT RESTING QUIETLY. EYES CLOSED. RESPIRATIONS ARE REGULAR AND EVEN. CALL LIGHT IS IN REACH. PATIENT HAS NO OTHER CARE NEEDS AT THIS TIME.
--- NOTE | 2021-12-06 08:00 | NUR ---
REPORT RECEIVED FROM NIGHT RN AND PT. CARE RESUMED. PT. IS DROWSY BUT AWAKENS EASILY TO VOICE. ORIENTED TO ALL. PT C/0 10/ PAIN. ADMIN DILAUDID. LLE ELEVATED ON TWO PILLOWS. LEG IS DRY AT THIS TIME WITH SEVERAL ALLEVYNS IN PLACE. FOOT DRESSING IS C.D.I. LUNGS DIM. THROUGHOUT. DISCUSSED USE OF I.S., SITTING IN THE CHAIR AND DEEP BREATHING. IV WNL AND FLUSHES WELL. DISCUSSED MEDS, POC, AND PAIN MANAGEMENT. LEFT RESTING WITH CALL LIGHT IN REACH.
--- NOTE | 2021-12-06 10:00 | NUR ---
Message from Kassie at [facility], states she has questions. Attempted to return call and left a message.
--- NOTE | 2021-12-06 11:45 | NUR ---
PT. C/O 07/15 PAIN IN LLE. HE REFUSES PAIN MEDS AT THIS TIME AND WOULD LIKE TO WAIT UNTIL AFTER LUNCH.
--- NOTE | 2021-12-06 13:00 | NUR ---
Was fernando to reach [place]. She states they do not think they will be able to set pt up with an orthopedic surgeon. They are no longer able to transport pts out to [facility]. as they do not have reliable transportation. They will accept this pt for IV antibiotics, management of diabetes, and wound care. Let her know I will speak with pt and see if he agrees to this.
--- NOTE | 2021-12-06 13:13 | NUR ---
PT ASLEEP, DID NOT AWAKEN TO KNOCK. WILL CHECK BACK
--- NOTE | 2021-12-06 13:22 | NUR ---
PT. C/O 07/15 LLE PAIN. ADMIN DILAUDID. PT. WAS ANXIOUS ABOUT TRANSFERRING AND WAS REASSURED HE WOULD BE UPDATED ONCE BED IS AVAILABLE. LEFT RESTING WITH CALL LIGHT IN REACH.
--- NOTE | 2021-12-06 13:45 | NUR ---
Lengthy conversation with pt and he does not agree to go to [facility] if they cannot assist him to see a surgeon to be evaluated for an amputation. Pt wants to know if he can drive himself to [place] as he drove himself to [place] from [place] with his wound. Let him know I could ask, but I really don't feel comforatable with this. Updated Dr. Perales.
--- NOTE | 2021-12-06 14:55 | NUR ---
PT C/O 10/ PAIN, REQUESTED AND GIVEN DILAUDID. VANCO STARTED. PT TOLERATING WELL. LUNG SOUNDS SLIGHTLY DIMINISHED IN BASES, WILL OBTAIN I.S. FOR PT TO USE ROUTINELY. LLE EXTREMITY DRESSING CLEAN, DRY, AND INTACT. CALL LIGHT IN REACH, PT RESTING.
--- NOTE | 2021-12-06 17:15 | NUR ---
PT REQUESTED AND GIVEN MORE PAIN MEDICATION. INSULIN GIVEN, ABX INFUSING, PT TOLERATING WELL. NO REDNESS OR PAIN AT IV SITE. PT SITTING UP IN BED, EATING DINNER. NO OTHER REQESTS AT THIS TIME.
--- NOTE | 2021-12-06 19:01 | NUR ---
DR DE GUZMAN IN TO PT'S ROOM TO DEBRIDE AND DRESS PT'S LLE WOUND. PT C/O TO MD OF INADEQUATE PAIN MANAGEMENT AND REQUESTING MORE MEDICATIONS THAN 10MG OXYCODONE Q4PRN, AND 1MG DILAUDID Q1PRN. PT STATES "THE 1MG OF DILAUDID BARELY LASTS ME 5 MINUTES AND THEN I'M IN PAIN AGAIN". PT REPORTS "HIGH PAIN THRESHOLD AND TOLERANCE". PT TOLERATED WOUND CARE BY MD, AND REQUESTED HIS DOSE OF DILAUDID NOT BE GIVEN UNTIL THE WOUND CARE WAS COMPLETE. WOUND WRAPPED, DILAUDID GIVEN. ANTIBIOTICS CONTINUE TO INFUSE. CALL LIGHT WITHIN REACH. PT SITTING UP IN BED, NO ACUTE SIGN OF DISTRESS.
--- NOTE | 2021-12-06 19:44 | NUR ---
SHIFT REPORT RECEIVED FROM RUBÉN FOWLER AT BEDSIDE. DR DE GUZMAN RECENTLY REDRESSED WOUND TO LOWER EXTREMITY. SOCKS IN PLACE, WILL ASSESS WITH EVENING ASSESSMENT. IV SITE WNL, FLUIDS INFUSING DIRECTED. RUBÉN NORIEGA IN ROOM TO SCAN NEW BAG IV FLUIDS AND GIVE PRN PAIN MEDICATION. NO FURTHER NEEDS, CALL LIGHT IN REACH.
--- NOTE | 2021-12-06 19:49 | NUR ---
PT CALL LIGHT ON. PT REPORTS HIS PUMP IS BEEPING. NEW IV FLUIDS HUNG. PT REQUESTS A GRANOLA BAR AND COFFEE. KITCHEN CALLED FOR GRANOLA BAR AND COFFEE PROVIDED. PTS RN, DONYA, UPDATED. NO ADDITIONAL REQUESTS OR COMPLAINTS. CALL LIGHT WIHTIN REACH. BED RAILS UP. PT REPORTS 10/10 PAIN AND REQUESTS PAIN MEDIATION, DONYA UPDATED AND WILL PROVIDE MEDICATION.
--- NOTE | 2021-12-06 22:00 | NUR ---
assessment complete, pt recently given pain medication (see emar). did note rate pain on pain scale, appears relaxed and comfortable. lle dressing c/d/i. strong pedal pulses noted. pt deneis needs or concerns. call light in reach.
--- NOTE | 2021-12-06 23:40 | NUR ---
Patient is in bed with call light in reach. Vitals and I&Os are complete.
--- NOTE | 2021-12-07 01:00 | NUR ---
scheduled iv abx infusing as directed, see emar. iv site wnl, brisk blood return noted. pt reports 10/10 pain, pt awake and resting in bed. conversing about life in [facility] prior to moving to the [facility]. no distress noted. will continue to monitor. assessment complete, no acute changes. dressing to lle remains c/d/i. fresh coffee provided. call light in reach.
--- NOTE | 2021-12-07 04:24 | NUR ---
call light answered, pt reports 10/10 pain, some grimacing noted. iv site wnl, prn po and iv pain medication given, see emar. pt now appearing more relaxed and calm in bed, on phone. urinal emptied, no further needs, call light in reach.
--- NOTE | 2021-12-07 05:30 | NUR ---
pt RESTING IN BED, EYES CLOSED. RR EVEN AND UNLABORED, AWOKE TO VOICE. DENIES NEEDS OR CONCERNS. CALL LIGHT IN REACH.
--- NOTE | 2021-12-07 06:08 | NUR ---
SCHEDULED IV VANCO INFUSING DIRECTED, IV SITE WNL. CALL LIGHT IN REACH.
--- NOTE | 2021-12-07 07:03 | NUR ---
PRN PAIN MEDICATION GIVEN FOR 10/10 REPORTED PAIN, IV SITE PAINFUL WHEN FLUSHED. SITE DC'D, CATHETER INTACT. NEW IV, 20G PLACED BY JEANNE RAMOS TO RIGHT FOREARM, PAIN MEDICATION GIVEN, IV SITE WNL. RR 16, EVEN AND UNLABORED. NO FURTHER NEEDS, CALL LIGHT IN REACH.
--- NOTE | 2021-12-07 07:49 | CONS ---
[facility] [address] [place], [place] [address] Signed DATE OF CONSULTATION: 12/04/2021 REASON FOR CONSULTATION: I was asked by Dr. Perales to see the patient regarding left lower extremity osteomyelitis. He was admitted with osteomyelitis, cellulitis, and beginning sepsis. He has had ongoing problems with his foot and has been undergoing care by Dr. March, the attending radiologist. He was on oral medications of Keflex and sulfa. However, these were insufficient managing his symptoms. He was taken to the operating room emergently and debrided by Dr. March. However, he has continued to have significant drainage from the wound. MRI was consistent with osteomyelitis and infection up into the midfoot. Dr. March had talked to the patient regarding possible below-knee amputation. I was consulted for this. PAST MEDICAL HISTORY: 1. Coronary artery disease. 2. Diabetes. 3. MS in 2015. SURGICAL HISTORY: 1. Tonsillectomy. 2. Appendectomy. 3. Rotator cuff repair. FAMILY HISTORY: Noncontributory. SOCIAL HISTORY: He is a known smoker with alcohol and drug use. ALLERGIES: Penicillins. CURRENT MEDICATIONS: 1. Insulin. 2. Gabapentin. 3. Bactrim. 4. Keflex. 5. Tramadol. REVIEW OF SYSTEMS: Noncontributory other than what is mentioned. PHYSICAL EXAMINATION: Electronically Signed By: LEANNE PRESCOTT MD 12/07/21 0749 PATIENT NAME: MELISSA BENSON CONSULTATION DATE OF : 73 REPORT #: [id number] PHYSICIAN: LEANNE PRESCOTT MD PCP: GENNARO WILLIAMSON PA-C REPORT IS CONFIDENTIAL AND NOT TO BE RELEASED WITHOUT AUTHORIZATION [facility] [address] [place], [place] [address] Signed On examination, his left lower extremity is quite thin. He does have a wound in the middle of his forefoot with purulent drainage. There is surrounding cellulitis. He is tender all the way up to the knee. The skin of the foreleg shows multiple skin erosions in some places almost down to the bone. There is darkening and thickening of the skin laterally almost up to the fibular head. Capillary refill is about 2 seconds. He does have good sensation throughout the leg and foot. His pulses were not palpable. ASSESSMENT: Osteomyelitis, chronic and gangrene, left foot, stable. PLAN: This I think certainly will require a below-knee amputation. However, given the extent of his skin lesions, I do not think that is something that should be done now. He needs to get the skin wounds healed. Once this is done, then the amputation can be performed, and the skin flap can be brought up with good confidence that it will heal. I recommend a CT angiogram to assess blood flow for healing purposes as well. I think likely all of this is going to require transfer to a larger facility such as [facility]. This was communicated to Dr. Perales. We will continue to see the patient. Leanne Prescott MD BA/MODL /[id number] Copies: ~ Electronically Signed By: LEANNE PRESCOTT MD 12/07/21 0749 PATIENT NAME: MELISSA BENSON CONSULTATION DATE OF : 73 REPORT #: [id number] PHYSICIAN: LEANNE PRESCOTT MD PCP: GENNARO WILLIAMSON PA-C REPORT IS CONFIDENTIAL AND NOT TO BE RELEASED WITHOUT AUTHORIZATION
--- NOTE | 2021-12-07 09:15 | NUR ---
Attempted to call Kassie at [facility] to check if they are able to send pt for a consult with orthopedic surgeon. Was unable to contact and left a message.
--- NOTE | 2021-12-07 09:23 | NUR ---
IN TO ROOK TO PASS MORNING MEDS, PT AMBULATORY TO BATHROOM, VOIDED URINE, NO BM. PT REPORTS PAIN CONTINUES TO BE 10/10, DILAUDID GIVEN. DRESSING ON LLE REMAINS IN PLACE, NO DRAINAGE OR WEEPING NOTED. ON L LOWER LEG, ALLYVEN PADS REMAIN IN PLACE, NO WEEPING NOTED. SLIGHT SWELLING TO LLE, PT DELCINED OFFER TO ELEVATE LEG ON PILLOW. STATES HE IS WORKING ON HIS OWN PLAN TO CONTROL HIS PAIN BETTER TODAY. PT REQUESTING LIGHTS LOWERED, CURTAIN CLOSED FOR REST.
--- NOTE | 2021-12-07 17:54 | NUR ---
Dr March came to my office x 2 to discuss a plan of discharge for this pt. He encouraged pt to go to [facility] in [place]. Pt is not wanting to do this unless he can have an appt with a provider to evaluate him for ABKA. Dr March returned later and stated second choice would be for pt to transition to oral antibiotics as cultures show what infection is. Pt would be diagnosed as chronic osteo with oral antibiotics to keep infection suppressed. Pt could seek a provider closer to home, possibly at [facility], and follow up with them as an OP. Dr. norwood I speak with pt about this. I also updated Dr. Joaquim Fernando from [facility] called today and left a message their team discussed having a provided into see him at [facility] if he is willing to go to [place]. She will let me know on Friday.
--- NOTE | 2021-12-07 18:35 | NUR ---
In to speak with pt and update to Dr. March and my conversations. Gave pt both options of [facility] with possibility of an evaluation by a provider there. Will not know this for sure until Friday or to change to oral antibiotics and discharge. He will be able to seek a provider closer to home or in [place] to evaluate him. After patient rehashing his past and his options I asked he to let me know on Friday. Pt again only wanting to go to [facility] or leave this hospital if he can immediately have an amputation. This is not something we can provide.
--- NOTE | 2021-12-07 19:05 | NUR ---
SHIFT REPORT RECEIVED FROM RUBÉN FOWLER. pt AWAKE AND RESTING IN BED, ASKING ABOUT DISCHARGE PROCESS pt REPORTS HE HAS TWO OPTIONS-EITHER GO TO FACILITY NEAR [place] OR BE DISCHARGED ON ORAL ABX AND PT CAN ATTEMPT TO FIND PHYSICIAN TO DO SURGERY CLOSER EX: [facility]. RUBÉN BUCKLEY IN ROOM AND DISCUSSED POC WITH pt. pt AGREES TO STAY TONIGHT AND BE DISCHARGED ON ORAL ABX TOMORROW. pt REQUESTING PERSON BELONGINGS LIKE WALLET FROM [employer]. NO FURTHER NEEDS, CALL LIGHT IN REACH. IV FLUIDS INFUSING DIRECTED, IV SITE WNL.
--- NOTE | 2021-12-07 19:57 | NUR ---
ENRIQUE FROM [employer] HAS pt TICKET AND IS GRABBING BELONGINGS (WALLET) FROM [employer]. LUBRICATION TECHNICIANJEANNE BORDEN.
--- NOTE | 2021-12-07 20:20 | NUR ---
pt CALLED ASKING FOR PERSONAL BELONGINGS AND REQUESTING SOMETHING FOR PAIN HE "JUST GOT BACK FROM THE BATHROOM". pt INFORMED THIS RN IS FINISHING UP REVIEWING ORDERS AND COLLECTING EVENING MEDICATIONS FOR pt, pt VERBALIZED UNDERSTANDING.
--- NOTE | 2021-12-07 20:35 | NUR ---
IN ROOM FOR EVENING MED PASS AND ASSESSMENT. ASSESSMENT COMPLETE AND SCHEDULED MEDICATIONS GIVEN PER EMAR. pt DOES NOT RATE PAIN ON PAIN SCALE, BUT MAKES STATEMENTS SUCH "IT'S HURTING, BUT I'VE JUST GOTTEN USED TO IT AND AM USED TO LIVING WITH IT". pt EDUCATED THAT MD PAULSON PLACED NEW ORDERS AND THAT IV DILAUDID HAS BEEN DC'D, pt WAS INITIALLY ASKING FOR IV DILAUDID. pt EDUCATED IF HE GETS DISCHARGED TOMORROW AND ON ORAL ABXS, pt HAS BE OKAY WITH PO PAIN CONTROL ONCE HE GOES HOME. pt VERBALIZED UNDERSTANDING. pt THEN REPORTS PO OXYCODONE HAS NO EFFECT ON PAIN CONTROL. WHEN ASKED IF HE HAS REPORTED THIS TO HIS DOCTORS pt REPORTS YES TO BOTH HIS PRIMARY DOCTOR HERE AND TO DR DE GUZMAN. pt ALSO BEGINS GOING INTO GREAT DETAIL ON HOW HE FEELS HIS PAIN HAS NOT BEEN ADEQUATELY CONTROLLED THE LAST COUPLE DAYS, PER EMAR, pt FREQUENTLY ASKING FOR PAIN MEDICATION (SEE EMAR). pt THEN REPORTS HE TAKES TRAMADOL AT HOME FOR PAIN CONTROL AND HE CONTINUED BY REPORTING HE TAKES 100MG PO BID AND THAT WAS RECOMMENDED BY HIS "PAIN SPECIALIST". ABOVE INFORMATION DISCUSSED WITH DR PAULSON VIA PHONE. DR PAULSON TO [facility] ORDERS FOR TRAMADOL. pt UPDATED, SOME SHADOWING NOTED TO LLE DRESSING. WILL MONITOR, PER MD DE GUZMAN ORDERS, pt SCHEDULED FOR DRESSING CHANGE TOMORROW BEFORE DISCHARGE. NO FURTHER NEEDS, CALL LIGHT IN REACH.
--- NOTE | 2021-12-07 21:00 | NUR ---
PRN TRAMADOL [address] PAULSON, pt UPDATED. pt REFUSES TRAMADOL AND STATES, "PLEASE LISTEN TO ME, THAT'S NOT GOING TO WORK. I MIGHT WELL NOT EVEN TAKE IT. I TOLD YOU, I TAKE 100 MG IN THE MORNING AND 100 MG AT NIGHT, THE DOCTOR EVEN SAID I COULD HAVE UP TO 300 MG IN A DAY". DR PAULSON AGAIN UPDATED ON pt's REFUSAL TO TAKE ORDERED TRAMDOL D/T DOSE. DR PAULSON TO UPDATE ORDERS, SEE EMAR. DIVISION PLANT ENGINEERJEANNE ORNELAS TO GIVE ORDERED PAIN MEDICATION (NEW DOSE) TO pt ONCE AVAILABLE IN [facility].
--- NOTE | 2021-12-07 21:23 | NUR ---
D/C IV IN L AC PER PT REQUEST. CATHETER IN-TACT. PRESSURE DRESSING APPLIED. EDUCATION GIVEN.
--- NOTE | 2021-12-07 21:42 | NUR ---
IN ROOM TO ADMINISTER ULTRAM INCREASED DOSE OF 100MG. PT WAS RESTING WITH EYES CLOSED AND WOKE TO NAME. PT STATES HE DOES NOT WANT TO TAKE IT. THIS RN ADVISED PT IT IS AVAILABLE IF HE NEEDS IT. HE DENIES FURTHER NEEDS. CALL LIGHT IS CLOSE.
--- NOTE | 2021-12-07 22:12 | NUR ---
ROUNDED ON pt, pt WAS RESTING IN BED WITH EYES CLOSED. RR EVEN AND UNLABORED, ON RA. NO DISTRESS OR S/SX OF PAIN NOTED. pt WAS PREVIOUSLY SALINE LOCKED BY SALESFORCE TRAINER CHASE. INFORMED BY PEER TUTORJEANNE ORNELAS pt DENIED NEED FOR PAIN MEDICAITON (TRAMADOL) AFTER HAVING INITIAL ORDER INCREASED TO WHAT pt REPORTED TAKING AT HOME. WILL CONTINUE TO MONITOR. CALL LIGHT IN REACH.
--- NOTE | 2021-12-08 02:13 | NUR ---
pt RESTING IN BED WITH EYES CLOSED, RR EVEN AND UNLABORED, ON RA. NO DISTRESS OR OUTWARD S/SX OF PAIN NOTED. pt LAYING ON HIS RIGHT SIDE. CALL LIGHT IN REACH.
--- NOTE | 2021-12-08 03:52 | NUR ---
pt RESTING IN BED WITH EYES CLOSED. RR EVEN AND UNLABORED, NO DISTRESS NOTED. pt APPEARS RELAXED AND CALM AT THIS TIME. WILL CONTINUE TO MONITOR. pt INDEPENDENT IN ROOM. CALL LIGHT IN REACH.
--- NOTE | 2021-12-08 06:59 | NUR ---
assessment complete, upon entering room pt was found in bed resting with eyes closed. rr even and unlabored, on ra. pt drowsy, awakens easily. when asked if pt slept well, pt responded with "kind of". no new shadowing to lle dressing, remains small in amount and yellow/serosanguineous in color. pt denies need to void, declines getting oob to attempt. will monitor. no further needs, call light in reach.
--- NOTE | 2021-12-08 07:30 | NUR ---
THIS RN RECEIVED SHIFT REPORT FROM JEANNE NAQVI. PATIENT RESTING QUIETLY IN BED, EYES CLOSED, RESPIRATIONS ARE REGULAR AND EVEN, CALL LIGHT IS IN REACH.
--- NOTE | 2021-12-08 09:28 | NUR ---
PATIENT IN BED RESTING AT THIS TIME. VITALS AND I&O'S CHARTED. PATIENT SAYS HE NEEDS TO BE OUT OF HERE BY 10:30 FOR A MEETING, JEANNE CORONA NOTIFIED. CALL LIGHT IN REACH. NO FURTHER NEEDS AT THIS TIME.
--- NOTE | 2021-12-08 10:30 | NUR ---
IN THE ROOM WITH THIS RN TALKING WITH PATIENT. EXPLAINING THATPATIENT REALLY NEEDS TO STAY IN THE HOSPITAL FOR IV ANTIBIOTICS AND THE PATIENT KEEPS TALKING AABOUT LEAVING AND GOING HOME. EXPLAINING THE PO ANTIBIOTICS ARE NOT GOING TO BE ENOUGH TO CLEAR UP PATIENT'S INFECTION AND THAT IF HE INSISTS ON LEAVING IT WILL BE AGAINST MEDICAL ADVICE DOES NOT FEEL IT [facility] OR IN THE BEST INTEREST FOR PATIENT TO RETURN HOME AT THIS TIME. HAS TAKEN OFF ALL BANDAGES AND HAS LOOKED AT THE WOUNDS. PATIENT GIVEN AM MEDS INCLUDING HIS PO PAIN MEDS. IV SITE INFILTRATED ON FLUSH AND WAS PULLED INTACT BY THIS RN. LEAVING THE ROOM AND PATIENT WILLING TO STAY. THIS RN PREPARING TO PLACE NEW DRESSINGS. CALL LIGHT IN REACH.
--- NOTE | 2021-12-08 11:30 | NUR ---
THIS RN USED WOUND CLEANSER TO CLEAN RED/PINK OPEN AREAS ON HIS LLE AROUND THE DARBY. 4 NEW ALLEVYNS PLACED OVER THESE WOUNDS. THEY LOOK MUCH BETTER FROM THE TIME THIS RN PLACED THE DRESSINGS ORIGINALLY. INFORMED TIS RN TO CONTINUE DRESSING THESE AREAS WITH ALLEVYNS AND CLEANING WITH WOUND CLEANSER. BOTH OPENINGS (DORSAL AND PLANTER) OF THE LEFT FOOT FLUSHED WITH 20MLS NS. FOOT DRESSED WITH 4X4 GAUZE, ABD, KERLIX, AND COBAN. PATIENT GIVEN SOME SUGAR FREE JELLOW AND LIGHT CRANBERRY JUICE WITH DIET SODA. PATIENT TOLERATED DRESSING CHANGES WELL. CALL LIGHT IN REACH AND PATIENT HAS NO OTHER CARE NEEDS AT THIS TIME.
--- NOTE | 2021-12-08 12:15 | NUR ---
PATIENT RESTING QUIETLY IN BED TURNED TO HIS LEFT. PATIENT'S EYES ARE CLOSED, RESPIRATIONS ARE REGULAR AND EVEN, AND CALL LIGHT IS IN REACH. PATIENT HAS NO CARE NEEDS AT THIS TIME.
--- NOTE | 2021-12-08 13:12 | NUR ---
PATIENT IN BED RESTING WITH EYES CLOSED. VITALS AND I&O'S CHARTED. NO VOID AT THIS TIME, WILL CHECK BACK IN. CALL LIGHT IN REACH. NO FURTHER NEEDS AT THIS TIME.
--- NOTE | 2021-12-08 14:59 | NUR ---
PATIENT CONTINES TO REST QUIETLY, EYES CLOSED, RESPIRATIONS ARE REGULAR AND EVEN, CALL LIGHT IS IN REACH.
--- NOTE | 2021-12-08 16:01 | NUR ---
PATIENT HAS BEEN SWEATING AND BED LINENS CHANGED AND PATIENT CHANGED HIS T-SHIRT. FAMILY IS IN THE ROOM VISITING AND JEANNE SNEED IS IN THE ROOM TO PUT IN A MIDLINE FOR IV. CALL LIGHT IS IN REACH. DISCUSSED 'S TREATMENT PLAN WITH PATIENT'S FAMILY AT HIS REQUEST AND THEY VERBALIZED THE UNDERSTANDING.
--- NOTE | 2021-12-08 16:43 | NUR ---
MIDLINE INSERTION NOTE: ASKED BY DR. PAULSON TO EVALUATE PATIENT FOR MIDLINE INSERTION FOR OUTPATIENT ANTIBIOTICS. PATIENT HAS HAD A PREVIOUS PICC IN RIGHT ARM AND IS FAMILIAR WITH THE PROCESS AND PROCEDURE. PATIENT AGREEABLE TO MIDLINE AND GIVES VERBAL CONSENT. PATIENT WISHES FOR LINE TO BE IN RIGHT ARM SINCE HE IS LEFT HANDED. PT ABLE TO ASK QUESTIONS REGARDING THE MIDLINE RISKS AND BENEFITS AND UNDERSTANDS PROCEDURE. PT'S RIGHT ARM EVALUTED WITH U/S AND CEPHALIC VEIN AND BASILIC VEINS WERE EASILY IDENTIFIED. PT'S CEPHALIC VEIN WAS FOUND TO BE THE BEST CANDIDATE, AND A 5FR CATHETER WAS ESTIMATED TO TAKE UP 35% OF THE DIAMETER, AND AN 18 G POWERGLIDE MIDLINE WAS CHOSEN FOR PROCEDURE. CEPHALIC VEIN WAS ACCESSED EASILY ON THE FIRST ATTEMPT WITH THE POWERGLIDE MIDLINE AFTER 1% LIDOCAINE WAS USED TO NUMB THE SKIN, USING A 29 G NEEDLE FOR THE LIDOCAINE. PT TOLERATED WELL. PATIENT'S MIDLINE WAS EASILY ADVANCED INTO VEIN AND BLOOD RETURN EASILY ASPIRATED. STERILE DRESSING WITH A BIO PATCH AND SECUREMENT DEVICE WERE APPLIED. PT WAS GIVEN INSTRUCTIONS FOR CARING FOR HIS MIDLINE. REPORT GIVEN TO HIS NURSE, CHLOE ANGEL.
--- NOTE | 2021-12-08 17:20 | NUR ---
JEANNE SNEED FINISHED PLACING MIDLINE IN THE RIGHT UPPER ARM AND INFORMED ME PATIENT WAS ASKING FOR HIS PAIN MEDS. THIS RN WENT IN AND EXPLAINED TO PATIENT THAT WE HAD DISCUSSED THIS AT LENGTH THIS MORNING WITH AND THAT HE ONLY HAD TRAMADOL ORDERED TWICE A DAY AT 0900 AND 2100. PATIENT SAID,"WELL THAT'S NOT GOING TO WORK, MY PAIN IS OVER 10. I NEED SOMETHING NOW." INFORMED PATIENT THAT I WOULD CALL , BUT COULD NOT BE SURE HE WOULD ORDER ANYTHING ELSE. THIS RN TALKED TO AND HE ORDERED TORADOL. THIS RN GAVE 30MG SIVP TORADOL AND INFORMED THE PATIENT THIS IS WHAT IS ORDERED OFTEN FOR POST-OP PATIENT'S FOR PAIN. PATIENT'S DAD SPOKE UP,"I HAD THAT WITH MY KNEE SURGERY AND IT WORKED GREAT." PATIENT GIVEN SOME SALT AND PEPPER HE REQUESTED FOR HIS DINNER AND HE IS EATING AT THIS TIME. NO OTHER CARE NEEDS NOTED AT THIS TIME.
--- NOTE | 2021-12-08 18:01 | NUR ---
PATIENT IN BED WATCHING TV. VITALS AND I&O'S CHARTED. NO VOID, RN NOTIFIED. CALL LIGHT IN REACH. NO FURTHER NEEDS AT THIS TIME.
--- NOTE | 2021-12-08 19:20 | NUR ---
SHIFT REPORT RECEIVED FROM DAYSWYFT JEANNE CORONA. pt AWAKE AND RESTING IN BED, REPORTS CONTINUED 10/10 PAIN, FACIAL GRIMACING NOTED. DAYSWYFT TOWN PLANNER KAYLIE IN ROOM, REASSURING pt AND PROVIDING THERAPEUTIC COMMUNICATION. pt REPORTS HAVING HOT AND COLD SWEATS ALL DAY, PER VS ON DAYSHIFT-AFEBRILE. REPORTS FEELING ANXIOUS AND STATES, "I CAN BARELY GET UP AND WALK AND I CAN'T DO THIS. I USED TO BE ABLE TO HANDLE THE PAIN AND LIVE WITH IT, BUT I CAN'T ANYMORE. THEY MIGHT WELL CHOP IT OFF". EVENING PO TRAMADOL GIVEN EARLY, SEE EMAR. THIS RN AND DAYSWYFT JEANNE CORONA AND [facility] KAYLIE ALL VOICED ABOVE INFORMATION TO MD PAULSON, ALSO VOICED CONCERN ABOUT POSSIBILITY THAT pt COULD BE WITHDRAWLING FROM DILAUDID. MD PAULSON TO PLACE PRN ANXIETY MEDICATION. DENIED THOUGHTS THAT pt COULD BE WITHDRAWLING FROM DILAUDID. WILL CONTINUE TO MONITOR. CALL LIGHT IN REACH.
--- NOTE | 2021-12-08 20:00 | NUR ---
IN TO GET VITALS, ACCU-CHECK (see eMAR), COFFEE AND SF JELLO PROVIDED, NO FURTHER NEEDS AT THIS TIME
--- NOTE | 2021-12-08 20:30 | NUR ---
ASSESSMENT COMPLETE, SCHEDULED MEDICATIONS GIVEN, SEE EMAR. pt EDUCATION ON NEW MEDICATION- VISTARIL. QUESYIONS ANSWERED. WHEN ASKED pt's PAIN, pt CONTINUED TO REPORT 10/10 PAIN, WILL CONITNUE TO MONITOR. LLE REMAINS ELEVTED IN BED, DRESSING C/D/I. LEFT TOES WARM TO THE TOUCH, CAP REFILL WNL. pt ABLE TO WIGGLE TOES. MIDLINE IV WNL, DRESSING C/D/I. BRISK BLOOD RETURN NOTED. IV ABX INFUSING DIRECTED, NO FURTHER NEEDS. SUGAR FREE JELLO AND WATER AT BEDSIDE. CALL LIGHT IN REACH. SOME EDUCATION ON DIABETES MANAGEMENT DISCUSSED WITH pt, ACCUCHECK RESULT OF LOW 300'S, pt DENIES SNACKING DURING THE DAY. WILL MONITOR.
--- NOTE | 2021-12-08 21:50 | NUR ---
IV PUMP ALARMING, ISSUE RESOLVED. IV ABX COMPLETE, MIDLINE SALINE LOCKED PER POLICY. BRISK BLOOD RETURN NOTED, ALCOHOL CAP IN PLACE. DRESSING REMAINS C/D/I. RR EVEN AND UNLABORED, pt RESTING IN BED WITH EYES CLOSED. NO DISTRESS NOTED, pt ALLOWED TO REST, DID NOT ATTEMPT TO WAKE pt UP. WILL MONITOR, CALL LIGHT IN REACH.
--- NOTE | 2021-12-09 00:13 | NUR ---
pt AWAKE AND RESTING IN BED, EYES CLOSED. RR EVEN AND UNLABORED. NO DISTRESS NOTED. CALL LIGHT IN REACH.
--- NOTE | 2021-12-09 01:27 | NUR ---
PT REQUESTS JELLO. DENIES ANY OTHER NEEDS OR CONCERNS. APPEARS COMFORTABLE. NO DISTRESS NOTED. ENGAGED IN CASUAL CONVERSATION. URINAL EMPTIED. CALL LIGHT WITHIN REACH.
--- NOTE | 2021-12-09 02:29 | NUR ---
pt RESTING IN BED, EYES CLOSED. RR EVEN AND UNLABORED. NO DISTRESS NOTED. WILL CONTINUE TO MONITOR. CALL LIGHT IN REACH.
--- NOTE | 2021-12-09 04:40 | NUR ---
pt RESTING IN BED, LAYING ON HIS BACK. REMAINS ON RA, RR EVEN AND UNLABORED, NO DISTRESS NOTED. LLE ELEVATED IN BED WITH PILLOW. MIDLINE IV DRESSING REMAINS C/D/I. CALL LIGHT IN REACH.
--- NOTE | 2021-12-09 06:50 | NUR ---
ASSESSMENT COMPLETE, NO ACUTE CHANGES. DRESSING REMAINS C/D/I. pt AWAKE AND RESTING IN BED, NO NEEDS OTHER THAN COFFEE VERBALIZED. CALL LIGHT IN REACH AND WILL CONTINUE TO MONITOR.
--- NOTE | 2021-12-09 07:25 | NUR ---
SHIFT REPORT GIVEN TO THIS RN BY JEANNE NAQVI. PATIENT AWAKE AND JUST BACK IN BED FROM USING THE BATHROOM. PATIENT NO RATING PAIN JUST STATING,"I'VE BEEN IN A LOT OF PAIN ALL NIGHT." PATIENT AWARE IS NOT GOING TO PRESCRIBE ANYTHING ELSE FOR PAIN AND HAS SAID,"I AM JUST GOING TO TRY AND SLEEP ALL DAY LISTENING TO MY MUSIC." PATIENT BROUGHT A CUP OF COFFEE BY THIS RN REQUESTED BY PATIENT. CALL LIGHT IN REACH AND AM ASESSMENT COMPLETE.
--- NOTE | 2021-12-09 07:52 | NUR ---
PT AWAKE IN ROOM. DR DE GUZMAN AT BEDSIDE. BLOOD GLUCOSE CHECKED. CALL LIGHT IN REACH. NO FURTHER NEEDS AT THIS TIME.
--- NOTE | 2021-12-09 09:30 | NUR ---
PATIENT REQUESTING A SNACK. THIS RN CALLED ONCOLOGY SPECIALIST AND PATIENT CAN HAVE 1 GRANOLA BAR AND A LITE+FIT YOGURT BID TO STAY WITHIN HIS DIET. THIS RN WENT IN AND INFORMED PATIENT OF THIS AND AM SNACK GIVEN. PATIENT VERBALIZED UNDERSTANDING THE INSTRUCTIONS. PATIENT NEEDS NOTHING ELSE AT THIS TIME. CALL LIGHT IN REACH.
--- NOTE | 2021-12-09 10:20 | NUR ---
PATIENT CALLED HAVING 10/10 LLE PAIN AND 30MG IV TORADOL GIVEN, ALONG WITH NEURONTIN AND TRAMADOL. VISTARIL GIVEN FOR ANXIETY. THEN THIS RN REMOVED ALLEVYNS FROM LLE AND XEROFORM GAUZE PLACED OVER OPEN AREAS AND LOOSE WRAPPED UNNA BOOT APPLIED LOOSELY OVER LLE FROM ANKLE TO KNEE, THEN WRAPPED IN KERLIX AND COBAN. PATIENT HAS NO OTHER CARE NEEDS AT THIS TIME. CALL LIGHT IN REACH.
--- NOTE | 2021-12-09 12:44 | NUR ---
PATIENT CALLED AND ASKED FOR HAM SANDWICHES HE DID NOT WANT THE THE EGG SALAD SANWICHES THAT CAME UP. HAM SANDWICHES ARRIVED. PATIENT GIVEN HIS INSULIN FOR LUNCH COVERAGE.THIS RN ASKED DIETARY NOT TO SEND EGGSALAD AGAIN WHILE PATIENT IS HERE AND THEY VERBALIZED UNDERSTANDING. PATIENT HAD NO OTHER CARE NEEDS AT THIS TIME. CALL LIGHT IS IN REACH.
--- NOTE | 2021-12-09 13:09 | NUR ---
PATIENT CONTINUES TO EAT HIS LUNCH CALMLY, NO FACIAL GRIMACE, BUT PATIENT SAYS NOTHING IS HELPING HIS PAIN AND IT IS STILL 10/10 IN LLE. THIS RN TALKED TO . AND HAVE TALKED AND PATIENT'S PAIN PLAN IS NOT GOING TO BE CHANGED AT THIS TIME. NO NEW PAIN MED ORDERS.
--- NOTE | 2021-12-09 13:29 | NUR ---
WAS JUST IN TALKING WITH THE PATIENT AND INFORMED HIM HE WOULD NOT BE GETTING ANY NEW PAIN MEDICATION AT THIS TIME. INFORMED THIS RN OF THIS IN THE HALLWAY OUTSIDE THE PATEINT'S ROOM.
--- NOTE | 2021-12-09 13:34 | NUR ---
THIS RN ASKED IF STAFF COULD SKIP THE 1400 VS SO PATIENT COULD SLEEP. SAID THIS WOULD BE FINE. FINANCIAL SERVICES TECHNICIAN'S INFORMED.
--- NOTE | 2021-12-09 15:05 | NUR ---
SHAQUILLE ZENG HAD COME TO THIS RN ABOUT 15 MINUTES AGO AND SAID THE PATIENT HAD CALLED TO HAVE HIS URINAL EMPTIED AND THEN TOLD HER HE WAS IN "AGONY" AND WANTED TO TALK WITH HIS NURSE ABOUT PAIN MEDICATION. THIS RN WENT IN THE ROOM AND THE LIGHTS WERE DOWN AND PATIENT'S EYES WERE CLOSED. I CALL ED THE PATIENT'S NAME TWICE AND HE DID NOT STIR. I NOTICED PATIENT HAD HIS EARBUDS IN SO I TOUCHED HIS ARM AND CALLED HIS NAME. NO RESPONSE. I TOUCHED HIS ARM AGAIN AND CALL HIS NAME. NO RESPONSE. I TOUCHED HIS ARM AGAIN AND SAID HIS NAME AND HE WOKE UP. I TOLD THE PATIENT TAHT I WAS THERE BECAUSE HE HAD ASKED FOR SOMETHING FOR PAIN AND,"IT LOOKED LIKE YOU WERE SLEEPING." PATIENT SAID,"I MAY HAVE FALLEN ASLEEP, BUT I'M IN SO MUCH PAIN, I'M IN AGAONY." INFORMED THE PATIENT THAT I HAVE SPOKEN WITH TWICE AND HIS PAIN MEDICATIONS ARE NOT GOING TO BE CHANGED AND THAT I COULD BRING IN MORE TORADOL AND VISTARIL IN A LITTLE AFTER 4PM, BUT IF IT LOOKED LIKE HE WAS SLEEPING DID HE WANT ME TO WAKE HIM OR COULD I LET HIM SLEEP UNTIL 5PM FOR DINNER. PATIENT SAID," YEAH IF I'M SLEEPING LET ME SLEEP 'TIL DINNER." I SAT AND TALKED WITH THE PATIENT FOR SEVERAL MINUTES AND INFORMED THE PATIENT THERE WAS NOTHING MORE THAT I CAN DO EXCEPT MAYBE GET HIS A HOT OR COLD PACK AND PATIENT DECLINED AND SAID THAT MADE IT HURT WORSE. PATIENT WENT ON FOR SEVERAL MINUTES SAYING VERY DEROGATORY AND ISULTING THINGS ABOUT AND HOW HE WANTED TO TALK TO AND WHEN DID SHE COME BACK ON. 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 I ASKED PATIENT IF THERE WAS ANYTHING ELSE I COULD DO FOR HIM AT THIS TIME AND HE SAID,"NO". CALL LIGHT IS IN REACH.
--- NOTE | 2021-12-09 16:20 | NUR ---
THIS RN CHECKED IN [place] PATIET AND HE IS RESTING QUIETLY ON HIS LEFT SIDE, RESPIRATIONS ARE REGULAR AND EVEN, YES ARE CLOSED, AND CALL LIGHT IS IN REACH. THIS RN WALKED AROUND IN ROOM AND PATIENT DID NOT STIR. WILL WAKE PATIENT FOR EVEING BLOOD SUGARS. CALL LIGHT IS IN REACH.
--- NOTE | 2021-12-09 17:42 | NUR ---
THIS RN AND SHAQUILLE ZENG IN TO SEE PATIENT AND PM VS AND MEDS DONE AND GIVEN. PATIENT STILL HAVING 10/10 LLE PAIN. PATIENT PREPARING HIS DINNER TO EAT. TORADOL SIVP FOR PAIN GIVEN AND PO VISTARIL FOR ANXIETY GIVEN. LEAVING ROOM SO PATIENT CAN EAT DINNER AND WATCH TV. CALL LIGHT IN REACH.
--- NOTE | 2021-12-09 19:03 | NUR ---
REPORT RECEIVED FROM CHLOE ANGEL, ASSUMED CARE OF PT AT THIS TIME. PT HAS HAD CHANGE IN PAINMEDICATIONS TODAY AND [facility]ACEMENT AT [facility] IS BEING SOUGHT FOR PATIENT, DR DE GUZMAN CHANGED DRESSING TO LEFT LOWER LEG.
--- NOTE | 2021-12-09 21:08 | NUR ---
patient assessment complete. pt given his 2100 meds and also insulin per sliding scale on long acting. pt requests evening snack provided his yogurt. denies other requests at this time. call light in reach.
--- NOTE | 2021-12-09 23:51 | NUR ---
CHECKED ON PATIENT. HE IS LAYING ON BED, ON HIS RIGHT SIDE. EYES CLOSED. VISIBLE RISE AND FALL OF CHEST, EVEN UNLABORED. CALL LIGHT IS IN REACH. HAS WATER AT BED SIDE.
--- NOTE | 2021-12-10 01:40 | NUR ---
CHECKED ON PATIENT HE IS CONTINUING TO REST, EYES ARE CLOSED DOES NOT STIR WHEN I GO INTO ROOM. VISIBLE EVEN RISE AND FALL OF CHEST NOTED. PT LAYING ON HIS RIGHT SIDE. CALL LIGHT IN REACH.
--- NOTE | 2021-12-10 01:53 | NUR ---
called back into pt room after peeking in on him, he says his left leg pain is "9-10" pt has just woke from a deep sleep. informed pt that he can have IV toradol at this time, asked if he would like this and he says "i guess" pt reports he did get up to void once. emptied his urinal 750 ml.
--- NOTE | 2021-12-10 03:20 | NUR ---
CHECKED IN ON PT, HIS EYES ARE CLOSED, ONLY STIRS SLIGHTLY TO NOISE. CALL LIGHT IN REACH.
--- NOTE | 2021-12-10 05:43 | NUR ---
PT AWAKE. PT ASSESSMENT COMPLETED. VITALS OBTAINED. PT ASKING FOR COFFEE. ALSO REQUESTING SOME JELLO. REINFORCED TO PATIENT THAT HE CANNOT GO OVER HIS LIMIT FOR CARBS, TOLD HIM HE WILL NOT BE ABLE TO HAVE HIS YOGURT AND GRANOLA BAR IN ADDITONA TO BREAKFAST THIS MORNING. PT STATING HE IS IN PAIN. PT INFORMED THAT HE IS NOT DUE FOR ANOTHER PAIN MED JUST YET. CALL LIGHT IN REACH.
--- NOTE | 2021-12-10 07:24 | NUR ---
THIS RN RECEIVED SHIFT REPORT FROM JEANNE GOODE. PATIENT EATING A MORNING SNACK OF JELLO AND A CUP OF COFFEE. PATIENT HAS NO CURRENT CARE NEEDS. CALL LIGHT IS IN REACH.
--- NOTE | 2021-12-10 08:30 | NUR ---
both nares swabbed for covid-19 without complication. sample taken to lab.
--- NOTE | 2021-12-10 08:43 | NUR ---
THIS RN AND SHAQUILLE ZENG IN TO ASSESS PATIENT THIS AM. PATIENT NEEDED NO INSULIN ,VS STABLE, AM SCHEDULED MEDS GIVEN ALONG WITH SIVP TORADOL AND VISTARIL GIVEN FOR PATIENT EXPRESSING ANXIETY. WHEN STAFF ENTERED THE ROOM PATIENT'S AFFECT IS FLAT AND SPEECH QUIET. PATIENT WORKING ON HIS PHONE. PATIENT TOLD STAFF IS TRYING TO CLUSTER CARE SO HE CAN REST PATIENT HAS REQUESTED. PATIENT SAID HE WAS ABLE TO SLEEP A LITTLE LAST NIGHT, BUT HIS PAIN REMAINS 10/10 AND THIS RN HAS ALREADY BEEN INFORMED BY THAT THE PAIN MANAGEMENT PLAN IS NOT GOING TO CHANGE. PATIENT'S FOOT DRESSING LOOKS LIKE IT NEEDS CHANGED, SO THIS RN WILL LET PATIENT FINISH HIS BREAKFAST AND WE WILL LOOK AT A DRESSING CHANGE LATER IN THE MORNING. CAPREILL LESS THAN 3 SECONDS IN ALL LEFT TOES. PATIENT CAN ONLY FEEL A LITTLE IN HIS PINKY TOE. LEFT DARBY UNNA BOOT C/D/I. CALL LIGHT IN REACH AND LIGHTS TURNED DOWN AT PATIENT'S REQUEST.
--- NOTE | 2021-12-10 09:15 | NUR ---
Attempted to speak with pt. Pt was discussed in [address] Laughlin. feels pt should go to [facility] or a SNF to cont. IV antibiotics. UPdated pt was back and forth last week and I will discuss with pt. Pt sleeping when I attempted to visit. Touched pts arm and he does not awaken. Spoke with his nurse and he will let me know when pt is awake.
--- NOTE | 2021-12-10 10:34 | NUR ---
PATIENT HAS REQUESTED NOT TO BE DISTURBED UNLESS HE CALLS. NO NURSING DUTIES REQUIRED AT THIS TIME. LETTING PATIENT REST.
--- NOTE | 2021-12-10 12:10 | NUR ---
Notified by Kevin Alfonso, pt is awake. In and spoke with Pat. Asked if he has made a decision. He states he would like to go to [facility]. Let him know I will call them. Returned to my office and left a message for Kassie asking when they can accept this pt.
--- NOTE | 2021-12-10 12:55 | NUR ---
THIS PATIENT IN WITH EDWARD FROM CASE MANAGEMENT. PATIENT VERBALIZED THAT HE HAS MADE UP HIS MIND THAT HE IS GOING TO THE LT[facility] AND EDWARD IS GOING TO TALK TO THEM ABOUT A TRANSFER. PATIENT NEEDED NO INSULIN FOR LUNCH. PATIENT'S VEGGIES WERE NOT COOK LONG ENOUGH TO BE SOFT ENOUGH TO EAT. THIS RN MICROWAVED VEGGIES UNTIL SOFT ENOUGH TO EAT. PATIENT'S LEFT FOOT DRESSING SATURATED THROUGH AND THIS RN CHANGED THE DRESSING. TISSUE ON THE DORSAL AND PLANTER SURFACES CONTINES TO HAVE SOME FOUL SMELLING DRAINAGE. BOTH WOUNDS IRRIGATED WITH 20MLS NS. IODOSORG PLACED IN EACH WOUND, THEN 4X4 GAUZE TO BOTH, AND ABD PAD TO PLANTER SURFACE. LEFT FOOT THEN WRAPPED WITH KERLIX AND COBAN. PATIENT COMPLAINING OF HIS LLE STILL HURTING AND THIS RN INFORMED PATIENT I HAD MORE MEDS I COULD GIVE HIM AFTER 2PM. PATIENT SAID TO PLEASE COME IN AND GIVE IT AND THE VISTARIL SOON THEY ARE DUE AND IF HE IS ASLEEP TO WAKE HIM UP TO GIVE THEM. INFORMED PATIENT I WAOULD DO THIS. CALL LIGHT IN REACH AND NO OTHER CARE NEEDS NOTED AT THIS TIME.
--- NOTE | 2021-12-10 13:00 | NUR ---
PATIENT'S DIET IS NOW 75 GM CONSISTENT CARB. THIS ALLOWS DIETARY TO SEND A LITTLE MORE FOOD SINCE PATIENT COMPLAINED OF NOT GETTING ENOUGH AT MEALS LAST WEEK. WORKED WITH NURSING TO ALLOW TWO SNACKS, MID-AM SNACK AND MID-PM SNACK EACH 30 GM CARBS. A GRANOLA BAR IS 18 GM AND A LIGHT & FIT YOGURT IS 8 GM WHICH EQUALS 26 GM TOTAL. NURSING TO GIVE PATIENT HIS SNACKS. WILL CONTINUE TO MONITOR.
--- NOTE | 2021-12-10 14:14 | NUR ---
PATIENT HAS NOW HAD HIS AFTERNOON SNACK. HE CAN HAVE ONE MORE GRANOLA BAR FOR THE DAY FOR SNAKCS OR CARB EQUIVALENT. PATIENT HAVING 10/10 LLE PAIN ANAD 30MG SIVP TORADOL GIVEN FOR PAIN AND VISTARIL PO GIVEN FOR ANXIETY. PATIENT IS GOING TO TRY AND SLEEP FOR AWHILE NOW. STAFF HAS BEEN NOTIFED THE PLAN IS TO LET HIM SLEEP UNITL DINNER UNLESS HE CALLS. CALL LIGHT IS IN REACH AND PATIENT HAS NO OTHER CARE NEEDS AT THIS TIME.
--- NOTE | 2021-12-10 15:25 | NUR ---
PATIENT DENIES ANXIETY AND PAIN. DENIES THE NEED FOR ANY COUGH MEDICATION. LUNGS DIMINISHED THROUGHOUT AND SOME EXPIRATORY WHEEZES. AFTERNOON IV STERIODS GIVEN SIVP. PATIENT DENIES ANY OTHER CARE NEEDS AT THIS TIME. CALL LIGHT IS IN REACH.
--- NOTE | 2021-12-10 15:41 | NUR ---
THIS RN LOOKED IN ON PATIENT. PATIENT RESTING QUIETLY, EYS CLOSED, RESPIRATIONS ARE REGULAR AND EVEN, CALL LIGHT IN REACH. PATIENT HAS NO CURRENT CARE NEEDS AT THIS TIME.
--- NOTE | 2021-12-10 18:53 | NUR ---
PATIENT IND. IN ROOM. VITALS AND I&O'S CHARTED. PATIENT WANTS TO SHOWER. SHOWER SET UP FOR PATIENT. CALL LIGHT IN REACH. NO FURTHER NEEDS AT THIS TIME.
--- NOTE | 2021-12-10 19:10 | NUR ---
REPORT RECEIVED FROM DAY SHIFT RN. PT ALERT AND ORIENTED. PAN TANK WORKER IN ROOM TO ASSIST WITH SHOWER. NO NEEDS. WHITE BOARD UPDATED. CALL LIGHT IN REACH.
--- NOTE | 2021-12-10 20:30 | NUR ---
EVENING ASSESSMENT COMPLETE. SCHEDULED MEDS ADMINISTERED PER EMAR. MIDLINE FLUSHED WITH NS. BRISK BLOOD RETURN NOTED. DRESSING INTACT. IV ABX INFUSING WNL. SCHEDULED MEDS ADMIN FOR LLE PAIN. LLE DRESSING INTACT. BLE ELEVATED ON PILLOWS. EVENING SNACK AND FRESH WATER PROVIDED. PT DENIES QUESTIONS OR CONCNERNS. CALL LIGHT IN REACH.
--- NOTE | 2021-12-10 21:40 | NUR ---
IV ABX COMPLETE. MIDLINE FLUSHED AND SL LOCK. PT RESTING ON LEFT SIDE WITH EYES CLOSED. RESPIRATIONS EVEN. CALL LIGHT IN REACH.
--- NOTE | 2021-12-11 00:30 | NUR ---
PT REQUESTING SNACK. EDUCATION PROVIDED ABOUT CARB COUNT. PT RECEPTIVE. PRN FOR PAIN AND ANXIETY ADMIN PER EMAR. ICE CHIPS PROVIDED FOR DRY MOUTH. NO FURTHER NEEDS.
--- NOTE | 2021-12-11 03:35 | NUR ---
PT RESTING ON RIGHT SIDE. EYES CLOSED. RESPIRATIONS EVEN. CALL LIGHT IN REACH.
--- NOTE | 2021-12-11 05:42 | NUR ---
IN ROOM FOR PAIN MED ADMINISTRATION DISCUSSED WITH PT EARLIER IN THE SHIFT. PT IRRITABLE WITH STAFF. REMINDED OF PLAN OF CARE, PT QUICK TO APOLOGIZE. VS AND I&O COMPLETE. PT DENIES FURTHER NEEDS. CALL LIGHT IN REACH.
--- NOTE | 2021-12-11 07:30 | NUR ---
SHIFT REPORT GIVEN TO THIS RN BY JEANNE LORENZANA. PATIENT RESTING QUIETLY ON HIS RIGHT SIDE IN BED, EYES CLOSED, RESPIRATIONS ARE REGULAR AND EVEN, CALL LIGHT IS IN REACH.
--- NOTE | 2021-12-11 08:20 | NUR ---
PATIENT'S BREAKFAST HAS ARRIVED AND PATIENT SAYS HE FEELS "PEAKISH" AND IS VERY HUNGRY. PATIENT ASKED FOR ME TO COME BACK FOR VS,ASSESMENT, AND DRESSING CHANGES. CALL LIGHT IN REACH AND NO OTHER CARE NEEDS AT THIS TIME.
--- NOTE | 2021-12-11 09:21 | NUR ---
THIS RN AND MARIANA STUDENT NURSE IN TO PERFORM ASSESSMENT, VS, GIVE AM MEDS, AND CHANGED LEFT FOOT DRESSING. PATIENT SAYS HIS LLE PAIN IS 10/10 AND AM TRAMADOL GIVEN AND VISTARIL FOR ANXIETY. VS ARE STABLE. PICC LINE FLUSHES AND WNL. LEFT DARBY DRESSING C/D/I. LEFT FOOT DRESSING REMOVED WITH SEROSANGUINOUS DRAINAGE TO TOP AND BOTTOM OF FOOT. BOTH FOOT OPEN SORES IRRIGATED WITH 20MLS NS EACH AND THE FLUSHES GOES ALL THE WAY THROUGH THE FOOT TOP TO BOTTOM AND BOTTOM TO TOP. EXUDATE WIPED AWAY. IODOSORB PLACED IN BOTH OPENINGS, COVERED WITH 4X4 GAUZE, ABD TO BOTTOM OF FOOT, WHOLE FOOT WRAPPED IN KERLIX AND COBAN TO PATIENT'S SATISFACTION. PATIENT HAS NO OTHER CARE NEEDS AT THIS TIME. CALL LIGHT IN REACH AND LIGHTS TURNED DOWN AT PATIENT'S REQUEST.
--- NOTE | 2021-12-11 11:46 | NUR ---
THIS RN IN TO SEE PATIENT AND HE STATES LLE PAIN 07/15. SIVP TORADOL GIVEN AND VISTARIL FOR ANXIETY. PATIENT UP TO THE RESTROOM AND BACK TO BED INDEPENDENTLY. FSBS NEEDED NO INSULIN COVERAGE. LLE DRESSINGS C/D/I. LUNCH SHOULD ARRIVE SHORTLY. PATIENT HAS NO OTHER CARE NEEDS AT THIS TIME. CALL LIGHT IS IN REACH.
--- NOTE | 2021-12-11 11:50 | NUR ---
Recieved a call from Kassie at [facility], they are declining this pt as he would only have 20 days paid for stay. In and updated this pt and gave option of attempted placement to a SNF or discharge on oral antibiotics as Dr. March had discussed with him. He would like to go to a SNF. I will contact SNFs in our area.
--- NOTE | 2021-12-11 12:05 | NUR ---
THIS RN WENT IN WITH SAUSAGE WRAPPER EDWARD. THE [facility] IN [place] HAS REFUSED TO TAKE THE PATIENT. EDWARD SAID SHE COULD TRY TO FIND SNF THAT MIGHT TAKE HIM OR HE COULD GO HOME ON PO ANTIBIOTICS AND TRY TO GET IN WITH A PCP THAT COULD REFER HIM TO A SURGEON. PATIENT OPTED TO GO WITH A SNF SO HE CAN GET IV ANTIBIOTICS. EDWARD WILL LET US NOW WHAT SHE FINDS OUT.PATIENT HAS ASKED TO CLUSTER CARE SO HE CAN TRY AND SLEEP. PATIENT EATING LUNCH AND STAFF WILL NOT BOTHER HIM UNTIL 5PM UNLES HE CALLS FOR SOMETHING. CALL LIGHT IS IN REACH.
--- NOTE | 2021-12-11 14:49 | NUR ---
PATIENT IN BED RESTING WITH EYES CLOSED. JEANNE CORONA NOTIFIED AND SAID TO LET PATIENT REST. CALL LIGHT IN REACH.
--- NOTE | 2021-12-11 14:52 | NUR ---
Chart faxed to [facility] in [place], [facility], and [facility]. Pt also asked if Dr. Prescott would amputate his leg if he was able to get his skin healed. I had texted with this question and he replied, "yes". Will speak with Dr. Prescott further when I see him. Will cont. to seek placement for this pt.
--- NOTE | 2021-12-11 17:46 | NUR ---
THIS RN CAME IN THE ROOM ABOUT 1730. PATIENT HAS C/ O10/10 LLE PAIN. THIS RN CHECK TORADOL OUT OF THE PYXIS WITH VISTARIL FOR ANXIETY. WENT TO GIVE TORADOL AND EMAR SAID IT HAD BEEN DC'D AT 1659. THIS RN CALLED PHARMACY AND MED WAS AUTO DC'D PER [employer]. THIS RN CALLED AND LEFT A MESSAGE FOR TO SEE IF HE WANTED TO REORDER IT. HE DID REORDER IT SO 30MG SIVP TORADOL WAS GIVEN. PATIENT'S VS RECORDED. LIGHTS TURNED DOWN AT PATIENT'S REQUEST. CALL LIGHT IS IN REACH.
--- NOTE | 2021-12-11 19:46 | NUR ---
REPORT RECEIVED FROM DAY SHIFT RN. PT LYING IN BED ALERT AND ORIENTED. NO NEEDS AT THIS TIME. WHITE BOARD UPDATED. CALL LIGHT IN REACH.
--- NOTE | 2021-12-11 20:45 | NUR ---
EVENING ASSESSMENT COMPLETE. SCHEDULED MEDS ADMINSITERED PER EMAR. PT REPORTS LLE PAIN 07/15. SCHEDULED PAIN MEDS PROVIDED. LLE DRESSING INTACT WITH SCANT AMOUNT SEROSANG DRAINAGE. CAP REFILL WNL. TOES PINK WARM AND DRY WITH DECREASED SENSATION WHICH IS BASELINE PER PT. LLE ELEVATED IN BED. BLACK COFFEE AND SUGAR FREE JELLO PROVIDED. IV ABX INFUSING IN RIGHT MIDLINE. MIDLINE PULSATILE FLUSH WITH 10 ML NS. BRISK BLOOD RETURN NOTED. DRESSING INTACT. PT DENIES FURTHER NEEDS AT THIS TIME. CALL LIGHT IN REACH.
--- NOTE | 2021-12-12 00:01 | NUR ---
BLOOD SUGAR CHECKED. 79. PRIMARY RN NOTIFIED.
--- NOTE | 2021-12-12 00:30 | NUR ---
PRN FOR 10/10 LLE PAIN AND ANXIETY ADMINISTERED PER EMAR. PT REPORTS FEELING LIGHTHEADED AND REQUESTS BLOOD SUGAR CHECK. CBG 79. LOW CARB SNACK PROVIDED. PT AMB X 2 LAPS AROUND UNIT INDEPENDENTLY. BACK TO BED. TOLERATED WELL.
--- NOTE | 2021-12-12 01:45 | NUR ---
PT RESTING IN BED ON LEFT SIDE. EYES CLOSED. RESPIRATIONS EVEN. CALL LIGHT IN REACH.
--- NOTE | 2021-12-12 03:31 | NUR ---
CALL LIGHT ANSWERED. IN ROOM TO EMPTY URINAL. PT VOID 400 ML CLEAR YELLOW URINE. PT REPORTS HE IS SLEEPING "ON AND OFF." DENIES FURTHER NEEDS. CALL LIGHT IN REACH.
--- NOTE | 2021-12-12 06:03 | NUR ---
VS AND I&O COMPLETE. PRN FOR 10/10 LLE PAIN ADMINISTERED. PT REPORTS FEELING "SHAKY" AND REQUESTING BLOOD SUGAR CHECK. CBG 81. PT AWARE LOWER BLOOD SUGAR MAY MAKE HIM FEEL "UNWELL" DUE TO HX OF HIGH BLOOD SUGARS. BLACK COFFEE AND SUGAR SUBSTITUTE PROVIDED PER REQUEST. UP TO BR TO VOID AND BACK TO BED, YOBANI WELL. NO FURTHER NEEDS. CALL LIGHT IN REACH.
--- NOTE | 2021-12-12 08:01 | NUR ---
THIS INTO ROOM FOR GLUCOSE CHECK, PATIENT HAS EARBUDS IN AND REFUSES TO OPEN HIS EYES AND WILL NOT RESPOND. RN NOTIFIED.
--- NOTE | 2021-12-12 10:00 | NUR ---
Notified by [facility] they will not accept this pt due to his medicaid and unsure date of when wound on skin will heal.
--- NOTE | 2021-12-12 10:08 | NUR ---
Patient alert & oriented x4, pleasant this morning with cares. Patient reports 10/10 left foot pain, tramadol po admin per schedule. Left foot dressing changed at this time per provider order. Old dressing removed, foul-smelling serous drainage noted, wound flushed with normal saline, exudate then wiped away. Iodasorb placed to plantar and dorsal wound. 4x4 gauze, kerlex then coban placed over wound. Patient tolerated well.
--- NOTE | 2021-12-12 11:11 | NUR ---
PATIENT AWAKE IN BED, VITALS CHARTED. UMBRELLA TIPPER HAND IN ROOM AT [facility] TIME TO VISIT WITH PATIENT. FRESH COFFEE PROVIDED
--- NOTE | 2021-12-12 11:45 | NUR ---
Toradol 30mg IV admin for reports of 10/10 left foot pain.
--- NOTE | 2021-12-12 12:03 | NUR ---
PATIENT SHIVERING AND STATES HE CANNOT GET WARM. WARM BLANKET PROVIDED BY RN. NO FEVER, GLUCOSE IS 93. FRESH ICE WTAER PROVIDED
--- NOTE | 2021-12-12 14:20 | NUR ---
Spoke with Madison jacobsen [facility], she will review with team tomorrow. She did not see the chart when it came in yesterday. She also states concern pt may need longer than a 20 day stay. 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 Pt also would not qualify as he is able to walk, drive, clean and feed him self.
--- NOTE | 2021-12-12 15:14 | NUR ---
Patient resting in bed, eyes closed, respiration even and non labored. Patient has no distress. Personal supplies and call light within reach.
--- NOTE | 2021-12-12 15:20 | NUR ---
Update from Dr. Laughlin, he discussed options with pt and pt will more than likely be here until next week for IV antibiotics. Updated, I spoke with Madison and she is reviewing the chart. Pt does not qualify for custodial medicaid.
--- NOTE | 2021-12-12 17:23 | NUR ---
VITALS DONE, NO I/O TO PUT IN, PATIENT WAS SLEEPING SINCE LAST TOTAL.
--- NOTE | 2021-12-12 17:34 | NUR ---
BG IS 147. IV TORADAL GIVEN FOR 10/10 LLE PAIN.
--- NOTE | 2021-12-12 19:30 | NUR ---
SHIFT REPORT RECEIVED FROM DAYSFT JEANNE ECKERT AT BEDSIDE. pt AWAKE AND RESTING IN BED, EATING A ELIZABETH CRACKER AND COFFEE, GIVEN ON . IV MIDLINE DRESSING WNL, DRESSING C/D/I AND SALINE LOCKED PER SHIFT REPORT. pt INDEPENDENT IN ROOM, NO FURTHER NEEDS. CALL LIGHT IN REACH.
--- NOTE | 2021-12-12 20:20 | NUR ---
pt AMBULATED TO RN STATION, REPORTS SHIVERING AND "FEELING COLD". pt AFEBRILE, RESULT OF 98.5. BLANKET PROVIDED, WILL CONTINUE TO MONITOR. CALL LIGHT IN REACH AND pt INDEPENDENT IN ROOM.
--- NOTE | 2021-12-12 21:10 | NUR ---
pt HEARD MOANING FROM RN STATION, THIS RN IN pt ROOM TO ASSESS. pt CONTINUES TO SHIVER, MORE SO COMPARED TO PREVIOUS NOTED. ORAL TEMP 102.5, EXCESS BLANKETS REMOVED ALONG WITH JACKET. ROOM TEMP DECREASED. APICAL HR 112-115, BP RESULT OF 159/92 (MAP OF 110). pt WARM TO THE TOUCH. pt VERBALIZES ANGER AND FRUSTRATION REGARDING WHY pt CAN'T HAVE WARM BLANKETS. pt STATES, "I'M FREEZING, THIS IS BULLSHIT". pt EDUCATED ON FEVER PROTOCOL AND FEVER REDUCING INTERVENTIONS. CALL MADE TO DR PAULSON REGARDING ALL INFORMATION ABOVE, MD PAULSON TO PLACE ORDERS.
--- NOTE | 2021-12-12 21:25 | NUR ---
pt UPDATED ON POC AND NEW ORDERS PLACED BY MD PAULSON. pt CNTINUES TO SHIVER AND VERBALIZES IRRITATION ABOUT TAKING PRN TYLENOL, pt REPORTS NAUSEA AND STATES, "I'M NOT GONNA TAKE ANYTHING UNTIL MY STOMACH FEELS BETTER". PRN ZOFRAN OFFERED TO IMPROVE NAUSEA, pt QUICKLY DECLINES AND STATES, "I DOESN'T WORK, WHEN THIS HAPPENS THEY JUST LEAVE ME ALONE AND WAIT UNTIL IT FEELS BETTER, PROBABLY IN A COUPLE HOURS". MD PAULSON UPDATED, PER MD PAULSON OKAY TO WAIT UNTIL pt AGREES TO TAKE PO MEDS. INSULIN SS GIVEN, SEE EMAR. IV ABX INFUSING DIRECTED, BRISK BLOOD RETURN TO MIDLINE IV. DRESSING C/D/I. LAB IN ROOM FOR BLOOD CULTURES AND IMAGING TO BEDSIDE FOR ORDERED CHEST X-RAY. LAB CONTINUES TO COLLECT LAB DRAWS, pt SLOWLY BECOMES MORE RELAXED AND STARTS JOKING WITH STAFF. WILL CONTINUE TO MONITOR. CALL LIGHT IN REACH.
--- NOTE | 2021-12-12 21:47 | NUR ---
SCHEDULED AND PRN PO MEDICATIONS GIVEN AT THIS TIME, pt HAS DRANK APPROX 500-600 MLS WATER SINCE FIRST REPORTING NAUSEA WITH FEVER (SEE PREVIOUS RN NOTES). WILL CONTINUE TO MONITOR. CALL LIGHT IN REACH.
--- NOTE | 2021-12-12 23:30 | NUR ---
IN ROOM TO ROUND ON pt, TEMP LOWERED AND NOW 100.1, HR NOW WNL. pt RESTING IN BED WITH EYES CLOSED, RR EVEN AND UNLABORED. NO DISTRESS UPON ENTERING ROOM, pt CONITNUE S TO REPORT 10/10 PAIN, PRN TORADOL GIVEN (SEE EMAR). IV MIDLINE SALINE LOCKED, NEW ALCOHOL CAP IN PLACE. DRESSING REMAINS C/D/I. CLEAN URINAL AT BEDSIDE ALONG WITH UA DISINFECTING WIPES, pt EDUCATED ON CORRECT USE AND TO CALL EVAPORATOR REPAIRER AFTER VOIDING TO COLLECT ORDERED UA, pt VERBALIZED UNDERSTANDINGS. NO FURTHER NEEDS, CALL LIGHT IN REACH.
--- NOTE | 2021-12-13 01:38 | NUR ---
CALL LIGHT ANSWERED, pt REPORTS VOIDING. URINE FOR UA COLLECTED AND SENT TO LAB. pt DENIES ADDITIONAL NEEDS OR CONCERNS. 400MLS UO NOTED. CALL LIGHT IN REACH.
--- NOTE | 2021-12-13 02:54 | NUR ---
ROUNDED ON pt, pt RESTING IN BED WITH EYES CLOSED. RR EVEN AND UNLABORED, NO DISTRESS OR SHIVERING NOTED. WILL CONTINUE TO MONITOR. CALL LIGHT IN REACH, pt INDEPENDENT IN ROOM.
--- NOTE | 2021-12-13 04:42 | NUR ---
pt RESTING IN BED WITH EYES CLOSED. RR EVEN AND UNLABORED, NO DISTRESS NOTED. CALL LIGHT REMAINS IN REACH AND pt INDEPENDENT IN ROOM.
--- NOTE | 2021-12-13 06:51 | NUR ---
ASSESSMENT COMPLETE, NO ACUTE CHANGES. I&O'S COMPLETE AND FRESH WATER AND SUGAR FREE JELLO PROVIDED. NO NEW SHADOWING TO LLE DRESSING, UNNA BOOT DRESSING REMAINS C/D/I. IV MIDLINE REMAINS SALINE LOCKED, DRESSING C/D/I. pt RESTING IN BED, REPORTS 10/10 PAIN. NO DISTRESS NOTED. NO FURTHER NEEDS, CALL LIGHT IN REACH.
--- NOTE | 2021-12-13 07:36 | NUR ---
report recieved from restaurant shift supervisor rn, pt resting in bed, call light within reach, denies any needs
--- NOTE | 2021-12-13 09:00 | NUR ---
rn in room to do morning medications and assessment, pt midline flush, breakfast provided 10/10 pain report scheduled pain meds scheduled, denies any other needs
--- NOTE | 2021-12-13 10:30 | NUR ---
rn in room to do L foot dressing, dr phelps in room to assess wounds, pt tolerated well.
--- NOTE | 2021-12-13 10:55 | NUR ---
VITALS CHARTED. RN AND DR IN ROOM FOR DRESSING CHANGE. PATIENT AWAKE IN BED, CALL AND PERSONAL ITEM IN EASY REACH
--- NOTE | 2021-12-13 12:52 | NUR ---
RECVD CALL FROM KEEGAN AT [facility], THEY HAVE DECLINED PLACEMENT AT THIS TIME. KEEGAN STATES THERE WAS CONCERNS WITH PATIENT COMPLIANCE, NEED FOR AMPUTATION IN THE FUTURE AND ISSUES WITH WOUND HEALING.
--- NOTE | 2021-12-13 13:51 | NUR ---
PATIENT RESTING IN BED, EYES CLOSED AND EARBUDS IN. PATIENT IRRITABLE UPON WAKING. VITALS AND I&OS CHARTED. CALL LIGHT AND PERSONAL ITEMS IN EASY REACH
--- NOTE | 2021-12-13 16:56 | NUR ---
RN IN ROOM WITH DR. HOGAN TO ASSESS LEG WOUND. PLAN OF CARE PER DR. HOGAN IS TO PREFORM BELOW THE KNEE AMPUTATION ON THE LEFT LEG TOMORROW MORNING - PT STATES UNDERSTANDING AND AGREES TO PLAN. CONSENT SIGNED AND IN CHART. WOUND REDRESSED WITH XEROFORM AND KERLEX PER DR. HOGAN REQUEST. PT DENIES FURTHER NEEDS AT THIS TIME.
--- NOTE | 2021-12-14 00:04 | NUR ---
IVF INFUSING. PT TOOK LAST PO INTAKE. ALL FLUIDS REMOVED FROM BEDSIDE. AWARE OF NPO STATUS. VISITORS PRESENT. APPEARS COMFORTABLE.
--- NOTE | 2021-12-14 00:50 | NUR ---
IN TO EMPTY PTs URINAL, PT IS CHATTY, AND ASKS QUESTIONS ABOUT UPCOMING SURGERY, THEN ASKED IF DUE FOR A PAIN MEDICATION, RN TOLD, NO FURTHER NEEDS
--- NOTE | 2021-12-14 03:17 | NUR ---
PT AWAKE AND TALKING WITH . REQUESTS PAIN MED. TORADOL GIVEN. ASSESSMENT COMPLETED.
--- NOTE | 2021-12-14 03:20 | NUR ---
REQUESTS TORADOL. NO OTHER NEEDS. NO DISTRESS NOTED. DRAINAGE TO L FOOT AT MTP JOINT NOTED. NEW SOCK APPLIED
--- NOTE | 2021-12-14 05:55 | NUR ---
MEDICATED X2 WITH TORADOL FOR C/O PAIN TO LLE. WAS UP WALKING AND DRAINAGE NOTED TO AREA BY MTP JOINT. PT STAYED UP UNTIL EARLY HOURS OF THE MORNING VISITING WITH VISITORS. NPO SINCE MN.
--- NOTE | 2021-12-14 09:03 | NUR ---
PATIENT IN OR FOR BKA. NO CHANGE IN DISCHARGE PLAN AT THIS TIME. WILL REASSES PATIENT NEEDS POST OP.
--- NOTE | 2021-12-14 10:24 | NUR ---
12/14/21 Michelle Rivera- PT ARRIVES TO PACU AWAKE AND TALKING. PT IS REPORTING 10/10 PAIN TO THE BACK OF HIS LEFT CALF. PT DID NOT GIVE CONSENT FOR BLOCKS PRE-OP FROM TRAVEL ACCOMMODATIONS RATER.
--- NOTE | 2021-12-14 11:56 | NUR ---
[employer] PROFESSIONAL BECKY INFORMED ME PT IS IN SURGERY. WILL FOLLOW NEEDED
--- NOTE | 2021-12-14 12:10 | NUR ---
PT BACK FROM SURGERY, BEDSIDE REORT RECIEVED FROM ELIDA WATCH CASE POLISHER, L OMAYRA, DRESSING INTACT NO BLEEDING NOTED REPORTS PAIN, VSS, ADVANCE DIET TOLERATED, FAMILY AT BED SIDE
--- NOTE | 2021-12-14 13:10 | NUR ---
RN IN ROOM TO CHECK VITALS. PT IS SITTING UP IN BED ON PHONE, FAMILY AT BEDSIDE, TV ON, NO APPARENT DISTRESS. RATES PAIN 10/10. DRESSING DRY AND INTACT, ICE TO STUB. VS STABLE. DENIES ANY FURTHER NEEDS, CALL LIGHT IN REACH.
--- NOTE | 2021-12-14 13:54 | NUR ---
SPOKE WITH CHRISTINE Lynch PT REGARDING ASSESSMENT OF THE PATIENT TODAY. REQUESTED LIST OF DME THAT PATIENT WILL REQUIRE ON DISCHARGE. SHELBIE MURILLO RN NOTIFIED.
--- NOTE | 2021-12-14 14:23 | NUR ---
RN IN ROOM TO DO POST OP VITALS - PT DROWSY IN BED COMPLAINING OF PAIN. RATES PAIN 10/10 - SCHEDULED PAIN MEDS ADMINISTERED. PT PROVIDED IS- ENCOURAGED TO DO IS EXERCISES AT EVERY COMMERCIAL - FAMILY AT BEDSIDE EDUCATED WELL. ENCOURAGED PT TO PARTICIPATE IN PT TODAY - EDUCATED ON IMPORTANCE FOR REHAB AND HEALING.
--- NOTE | 2021-12-14 15:06 | NUR ---
PT IN ROOM PROVIDING THERAPY - WILL RETURN TO REASSESS VITALS WHEN DONE.
--- NOTE | 2021-12-14 15:20 | NUR ---
RN IN ROOM TO DO VITAL SIGNS, PT RESTING IN BED, ABLE TO SLEEP THROUGH VITALS, PULSE OXIMETER ON AND FUNCTIONING, ON ROOM AIR, FAMILY AT BEDSIDE NO OTHER NEEDS
--- NOTE | 2021-12-14 17:01 | NUR ---
DR PAULSON CALLED AND NOTIFIED OF BLOOD GLUCOSE BEING 385. WILL REVIEW CHART.
--- NOTE | 2021-12-14 18:10 | NUR ---
rn in room to do vitals and assess pt, pt reports 10/10 pain scheduled pain medications administered. pt sitting up in bed eating dinner, talking with visitors at bedside no visual signs of distress, dressing on L leg remains CDI, pink and warm, educated on importance of following diabetic diet and wound healing, denies any needs at the moment call light within reach
--- NOTE | 2021-12-14 20:45 | NUR ---
IN TO GET VITALS, COFFEE PROVIDED TO PT, PT HAS BEEN UP TO VOID AND BM RECENTLY, RN IN RM, ICE WATER FILLED, ACCU CHECK DONE, NO FURTHER NEEDS AT THIS TIME
--- NOTE | 2021-12-14 21:00 | NUR ---
Pt on room air, cpox at bedside, alert and oriented, talkative. CBG 436, Dr Laughlin notified, pt denies s/sx hyperglycemia. non compliant with diet. family informed to keep diet requirements as prescribed. Had bm this shift. LBKA covered with corazon wrap, declines to elevated, moving very well. was medicated with Toradol per co 10/10 L stump surgical area pain. scds R leg. CL LONNY patent. flushed well. tolerating large amounts of fluids. call light at bedside. family took pt to br earlier, informed to please call for assistance due to fall precautions
--- NOTE | 2021-12-14 21:05 | NUR ---
dr phelps notified of pts cbg of 436. "Oh OK give him the scheduled ss dosage of 11 untis". MD was made aware that pts family is bringing food form the outside that is not on pts diet. stated "to pleasae notify family pt has to stay withing his alloweted diet due to him being diabetic as other non approved foods may impair his healing and we will not be responsible if pt and family are notn compliant", will notify family.
--- NOTE | 2021-12-14 21:47 | NUR ---
received scheduled ultram and tylenol. irritable mood, hyperverbal
--- NOTE | 2021-12-15 01:00 | NUR ---
was awake. visiting with family, no c/o pain at thist kathya. LBKA covered wtih corazon wrap. repositions self in bed
--- NOTE | 2021-12-15 02:15 | NUR ---
IN TO GET VITALS, I&Os, PT STATES HE IS OKAY IF RN CAN WAIT TO BRING 2AM MED LATER IN THE AM, NO FURTHER NEEDS
--- NOTE | 2021-12-15 05:29 | NUR ---
Pt on room air. CL LONNY patent, intact. no c/o adverse reaction to abx. Was medicated with Emmy and scheduled Ultram and Tylenol, declined 0200 dose. per LBKA,amputaion area covered with coban and corazon wrap. CBG was 436, Dr Laughlin was notified, see notes. pt non compliant with diet. tolerating liquids well, no emesis, voiding QS urine, and had a bm. Family are to let nursing personnel help pt up to BR to prevent fall, semirecptive
--- NOTE | 2021-12-15 06:30 | NUR ---
medicated with scheduled pain med, cooperative. Awake
--- NOTE | 2021-12-15 08:00 | NUR ---
THIS RN IN PTS ROOM TO GIVE PT REQUESTED PAIN MEDS. PT STATES THAT HE THINKS THE BLOCK IS WEARING OFF AND PT STATES THAT HE PREDICTS THAT HE WILL BE IN "[place]" LATER ON TODAY. PT REPORTS THAT PROMISIED MORE PAIN MEDS WHEN THE BLOCK WORE OFF. THIS RN DISCUSSED WITH PT THAT WE WILL STICK WITH HIS PAIN MED PLAN UNTIL MD GETS HERE- PT STATES HE WILL TRY THIS. THIS RN FLUSHED PTS MIDLINE- PT REPORTS BURNING AT SITE WHEN PULSED FLUSHED- NO REDNESS OR SWELLING NOTED 10CM- DOES NOT DRAW BACK BLOOD- NO TENDERNESS NOTED 10CM UP. CALL LIGHT WTIHIN REACH
--- NOTE | 2021-12-15 10:00 | NUR ---
THIS RN IN PTS ROOM TO GIVE SCHEDULED PAIN MEDS. PT STATES THAT PAIN GETTING "WORSE" DUE TO FEELING THE "BLOCK WEARING OFF". THIS RN DISCUSSED WITH PT ABOUT PAIN MED SCHEDULE- WAITING ON MD
--- NOTE | 2021-12-15 10:25 | OR ---
[facility] [address], [place] [address] Signed DATE OF OPERATION: 12/14/2021 SURGEON: Leanne Prescott MD PREOPERATIVE DIAGNOSIS: Gangrene osteomyelitis, left foot. POSTOPERATIVE DIAGNOSIS: Gangrene osteomyelitis, left foot. PROCEDURE PERFORMED: Left below-knee amputation. PLATFORM BEATER: None. ANESTHESIA: General. BLOOD LOSS: 175. TOURNIQUET TIME: 31 minutes. BRIEF HISTORY: Melissa is a 46-year-old gentleman, who is a fairly uncontrolled diabetic. He developed pressure ulcers and eventually underwent several amputations of his left foot; however, the osteomyelitis was noted to track up to the mid foot towards the hind foot. He had extensive purulent infection. He was admitted to the hospital with sepsis and under IV antibiotics. He was able to get control of the sepsis; however, he continued to have issues with the wounds, which was debrided by Podiatry. In the last two days, he has developed new onset of fevers greater than 39. He also feels chills. He did have a bunch of lesions on the front of his four leg that have healed under good care with the wound care nurse. We elected to go ahead and proceed with a below-knee amputation secondary to improvement in his foreleg skin. Risks, benefits, and alternatives were discussed with him. He elected to proceed. DESCRIPTION OF PROCEDURE: Once consent was obtained, he was taken to the operating room. After adequate Electronically Signed By: LEANNE PRESCOTT MD 12/15/21 1025 PATIENT NAME: MELISSA BENSON OPERATIVE REPORT DATE OF : 73 REPORT #: [id number] PHYSICIAN: LEANNE PRESCOTT MD PCP: GENNARO WILLIAMSON PA-C REPORT IS CONFIDENTIAL AND NOT TO BE RELEASED WITHOUT AUTHORIZATION [facility] [address], [place] [address] Signed anesthesia, he was placed on the operating room table. All downside pressure points well padded. The leg was prepped and draped in the standard sterile fashion. Sterile Frederic bag was placed around the foot and tightened and wrapped with sterile Coban. We then marked out the skin incisions one handbreadth below the tibial tuberosity. The leg was exsanguinated by gravity and the tourniquet was inflated to 250 mmHg. The skin incision was made circumferentially, carried through the fascia and through the muscle. We then split the periosteum and elevated off the distal tibia and the fibula. The deep dissection was undertaken and all vessels were identified and clamped. The tibial cut was made 2 cm above the skin incision. This was beveled anteriorly. The fibular cut was made just proximal to that. The soft tissue dissection was then taken down to the posterior portion of the flap and the leg was handed off to go to Pathology. All bleeders were then tied with 0-silk ties and cauterized as necessary. We debulked the muscle to allow the flap to sit properly. At this point, we did let down the tourniquet and cauterized and tied off several more bleeders. At the end of this portion, there was only some gentle oozing from the muscle tissue. The wound was then copiously irrigated with normal saline. The fascia was closed using #1 Vicryl, the subcutaneous tissue with 2-0 Monocryl, and the skin with 2-0 nylon in an interrupted fashion. The wound was then dressed with Allevyn silver dressings. There was a small lesion over the fibular head that we did put some Medihoney on and again covered with Allevyn dressing. The Allevyn was then covered with fluffs and two rolls of Kerlix. This was then covered with an Dc wrap. He was awakened and taken to the recovery room in satisfactory condition. All sponge, needle, and instrument counts were correct. Leanne Prescott MD BA/HAYLIEL /[id number] Copies: ~ Electronically Signed By: LEANNE PRESCOTT MD 12/15/21 1025 PATIENT NAME: MELISSA BENSON OPERATIVE REPORT DATE OF : 73 REPORT #: [id number] PHYSICIAN: LEANNE PRESCOTT MD PCP: GENNARO WILLIAMSON PA-C REPORT IS CONFIDENTIAL AND NOT TO BE RELEASED WITHOUT AUTHORIZATION
--- NOTE | 2021-12-15 12:00 | NUR ---
THIS RN IN PTS ROOM TO GIVE PT SCHEDULED HUMALOG. PT CALM AND SEEMS MORE DROWSY BUT STILL STATES THAT PAIN IS 10/10. THIS RN PROVIDED PT WITH 10MG OF OXY- PT HOPING TO GET SOME RELIEF AND GET SOME REST.
--- NOTE | 2021-12-15 12:15 | NUR ---
PTS STUMP ELEVATED ON 2 PILLOWS AND THIS RN PROVIDED PT WITH 2 ICE PACKS. PT TOLERATED WELL AND IS EATING LUNCH. CALL LIGHT WTIHIN REACH
--- NOTE | 2021-12-15 14:00 | NUR ---
THIS RN IN PTS ROOM- PT APPEARS TO BE RESTING COMFORTABLY AT THIS TIME. CALL LIGHT NOTED TO BE WITHIN REACH
--- NOTE | 2021-12-15 14:50 | NUR ---
THIS RN IN PTS ROOM TO GIVE PT AFTERNOON MEDS. PT STATES THAT PAIN IS 10/10 BUT WAS ABLE TO SLEEP. PT REPOSITIONED ON PILLOW AND NEW ICE PACKS PROVIDED. CALL LIGHT WITHIN REACH
--- NOTE | 2021-12-15 19:39 | NUR ---
awake, talkative, pleasant, alert and oriented. On room air. lungs clear, R Midline intact. L BKA amputaion covered with corazon wrap, good popliteal pulses present, elevated with pillows ice to area. c/o 10/10 pain L leg, medicated with Oxycodone 10mg po. Watching tve, no s/sx facial distress noted. calm, watching tv. uses call light and fresh fluids given
--- NOTE | 2021-12-15 22:22 | NUR ---
awake, visiting with family via phone. medicated with scheduled meds per 10/10 lbka pain. tolerating fluids well, voiding qs, declined mom as he has had several bm's tonight. uses call light
--- NOTE | 2021-12-15 23:45 | NUR ---
AWAKE, WATCHING TV, C/O 10/10 LBKA STUMP PAIN, ELEVATED WITH PILLOWS, ICE TO AREA.
--- NOTE | 2021-12-16 01:24 | NUR ---
RESTING, EYS CLOSED, ON ROOM AIR, NO DISTRESS, L LEG ELEVATED INPILLOWS, W ICE. DRESSING INTACT. CALL LIGHT AT HANDS REACH
--- NOTE | 2021-12-16 03:23 | NUR ---
DAYLIGHT TIME SAVINGS, PT MEDICATED WITH SCHEDULED 0200 ULTRAM PER 10/10 LBKA PAIN. AWAKE, WATCHING TV. USES CALL LIGHT, VOIDING QS, TOLERATING FLUIDS, NO EMESIS
--- NOTE | 2021-12-16 05:08 | NUR ---
PT ON ROOM AIR, CLEAR LUNGS, NO COUGH, VITALS WNL. HAS DION ARM MIDLINE, PATENT, NO C/O ADVERSE REACTION TO ABX. LBKA INCISION COVERED WITH CHLOÉ WRAP, ELEVATED IN PILLOWS WITH ICE, POPLITEAL PULSES PALPABLE, SKIN WARM. SCDS R LEG. HAS TOLERATED LIQUIDS WELL, NO EMESIS, HAS BEEN MEDICATED WITH SCHEDULED TYLENOL AND ULTRAM, OXYCODONE, WITH 10/10 STATED PAIN CONTROL. NO FACIAL DISTRESS NOTED WHEN MEDICATED. PT HAS BEEN GETTING UP TO BR USING WALKER , VOIDING QS, HAD BM. PLACES SELF BACK TO BED, TURNS AND REPOSITIONS SELF IN BED.
--- NOTE | 2021-12-16 05:25 | NUR ---
PT. VITALS AND I/OS CHARTED. FRESH ICE WATER AND 7 UP PROVIDED. ROOM TIDIED. TRASH CANS EMPTIED. CALL LIGHT LEFT WITHIN REACH. NO OTHER IMMEDIATE NEEDS AT THIS TIME.
--- NOTE | 2021-12-16 05:43 | NUR ---
IN BED, L BKA STUMP ELEVATED WITH PILLOWS, MEDICATED WITH SCHEDULED TYLENOL AND ULTRAM, VISTARIL GIVEN PER ANXIETY AND C/O PAIN. USING CALL LIGHT, GETS UP TO BR FWW INDEPENDENT TOLERATED WELL, VOIDING QS.
--- NOTE | 2021-12-16 07:15 | NUR ---
THIS RN RECEIVED REPORT FROM MEENU ANGEL. PT APPEARS TO BE RESTING THIS AM. THIS RN WILL CHECK BACK WITH PT.
--- NOTE | 2021-12-16 08:23 | NUR ---
THIS RN IN PTS ROOM TO GIVE PT MORNING MEDS. PT STATES THAT HE IS IN PAIN AND IS HOPIN WILL INCREASE HIS PAIN MEDS TODAY. PT APPEARS PRETTY DROWSY THIS AM. NO INSULIN GIEN DUE TO WNL BLOOD SUGAR. PT STATES THAT HE HAS TO USE RESTROOM. PT ABLE TO AMBULATE TO RESTROOM USING FWW. PT APPEARS STIFF AND A BIT PAINFUL WHEN MOVING BUT IS STEADY ON HIS FEET TO THE RESTROOM. PT DECLINED NEED FOR SENOKOT- "I'M MOVING MY BOWELS WELL" 10MG OF OXY PROVIDED TO PT. NO OTHER NEEDS AT THIS TIME. CALL LIGHT WITHIN REACH. NO SKID SOCKS ON. STUMP ELEVATED WITH ICE
--- NOTE | 2021-12-16 08:35 | NUR ---
dr. castillo in to see pt. pt asking for more pain meds. md to increase pts gabapentin. pt declining to use ice therapy- md aware- pt educated. leg elevated, no ice utalized.
--- NOTE | 2021-12-16 10:20 | NUR ---
THIS RN IN PTS ROOM TO GIVE SCHEDULED MEDS. PT PEACEFULLY RESTING WHEN THIS RN IN PTS ROOM GETTING LOGGED INTO COMPUTER. PT APPEARS MORE DROWSY TODAY AND FACIAL EXPRESSION SHOWS SOME PAIN, COMPARED TO PREVIOUS DAYS WHEN THIS RN HAS HAD PT. PT MENTIIONED TO THIS RN "I WISH I WOULDN'T HAVE HAD THE BKA, THIS IS A LOT OF PAIN" THIS RN EDUCATED PT THAT SOME PAIN IS EXPECTED
--- NOTE | 2021-12-16 12:20 | NUR ---
THIS RN IN PTS ROOM TO GIVE PT SCHEDULED MEDS. PT STATES THAT HE IS SORE, PT EATING LUNCH AND DOES NOT REQUEST ANY PAIN MEDS AT THIS TIME.
--- NOTE | 2021-12-16 14:08 | NUR ---
THIS RN IN PTS ROOM TO GIVE PT SCHEDULED MEDS. THIS RN ABLE TO LOG INTO COMPUTER AND PT WAS STILL RESTING PEACEFULLY WITH DEEP AND EVEN RESPIRATIONS NOTED. PT ABLE TO TAKE PILLS- STILL REPORTS PAIN 10/10 COMING OUT OF AN APPARENT DEEP SLEEP, DUE TO IT TOOK A COUPLE MINUTES FOR PT TO WAKE UP. THIS RN PROVIDED PT WITH A YOGURT THAT WAS REQUESTED- DID NOT DRINK MILK FROM LUNCH- LEFT OVER CARBS
--- NOTE | 2021-12-16 18:50 | NUR ---
pt requesting snacks- amanda lockers- this rn discussed with pt that this is over his carb limit. this rn discussed pts orders per the md. pt provided a cup of coffee and sugar free jello. no other needs at thist kathya
--- NOTE | 2021-12-16 21:03 | NUR ---
CBG 154, received 2 units ss Humolog Insulin. cooperative, on room air. Midline RUP patent. IV abx infusing w/o problems. LBKA stump incision are covered with corazon wrap, elevated with pillows, decllines ice packs at this time. good popliteal pulse, surrounding skin pink, warm, soft, no edema. cooperative with assessments
--- NOTE | 2021-12-16 22:37 | NUR ---
SCHEDULED PAIN MEDS GIVEN, 10/10 LBKA AREA PAIN. AWAKE, TALKING IN PHONE WITH FAMILY. NO S/SX FACIAL DISCOMOFRT. PLEASANT AND COOPERATIVE
--- NOTE | 2021-12-17 00:13 | NUR ---
RESTING, NO DISTRESS, TURNS SELF IN BED, LBKA ELEVATED WITH PILLOWS. CALL LIGHT AT BEDSIDE
--- NOTE | 2021-12-17 02:03 | NUR ---
sleeping deeply, on room air, did not wake up with light touch for 0200med. held at this time. turns and repositions self in bed
--- NOTE | 2021-12-17 03:16 | NUR ---
PT AWAKE, UP TO BR W/O ASSIST, USES FWW, VOIDED LARGE AMOUNTS OF YELLOW URINE. C/O 07/15 LBKA STUMP, MEDICATED WITH SCHEDULED ULTRAM. JELLOW GIVEN ON REQUEST. TOLERATING LIQUIDS WELL. COOP WITH ASSESSMENT. LBKA STUMP COVERED WITH CHLOÉ WRAP. ELEVATED IN PILLOWS, ICE TO AREA. SKIN PINK, WARM, TENDER
--- NOTE | 2021-12-17 06:20 | NUR ---
pT ON ROOM AIR, ajay MIDLINE, TENDER PER PTS STATEMENT, UNABLE TO DRAW BLOOD BACK, PT RECEIVED ROCEPHIN ABX IV. ALERT, ORIENTED, HAS BEEN VERY P-LEASANT AND COOP WITH TEACHING R/T DIET AND CARE OF LBKA STUMP CARE. LBKA COVERED WTIH CHLOÉ WRAP, ELEVATED WITH PILLOWS, POPLITEAL PULSES PALPABLE, SKIN WARM, ICE TO AREA. TOLERATING LIQUIDS WELL. NO EMESIS, MEDICATED WITH SCHEDULED TYLENOL AND ULTRAM, RECEIVED 1 DOSE OF PO TORADOL, STATED GOOD TO FAIR PAIN RELIEF. INDEPENDENT IN ROOM, UP TO BR USES WALKER. VOIDING QS, NO BM THIS SHIFT.
--- NOTE | 2021-12-17 07:20 | NUR ---
this rn received report from filomena pinedo.
--- NOTE | 2021-12-17 07:25 | NUR ---
PT RESTING IN BED, BLOOD SUGAR CHECKED. CALL LIGHT IN REACH. FRESH COFFEE AND JELLO GIVEN. WHITE BOARD UPDATED. NO FURTHER NEEDS AT THIS TIME.
--- NOTE | 2021-12-17 08:30 | NUR ---
this rn in pts room to give morning meds. pt states that he is "in a lot of pain" lindy rn provided pt with 10mg oxy for pain so he can work with P.T. and O.T. no other needs at this time- pt to stand to pee and then back to bed with stump elevated.
--- NOTE | 2021-12-17 10:45 | NUR ---
ADVISED BY AMITA PT THAT SHE BELIEVES PATIENT WILL BE UNABLE TO DISCHARGE HOME DUE TO NOT BEING ABOUT TO FIT A WALKER INTO THE HOME. AMITA STATES THE PATIENT HAS INDICATED THAT HE LIVING ARRANGEMENT IS UNDETERMINED AT THIS TIME. AMITA SUGGESTS SNIF, BUT WILL SPEAK WITH DR. PAULSON. CARE MEETING IN [facility] WITH DR. PAULSON, AMITA PT, SNAG RN AND MYSELF. DR. PAULSON DOES NOT FEEL THAT PATIENT MEETS SNIF CRITERIA AT THIS TIME. PATINET TO STAY 3-5 MORE DAYS FOR CONTINUE PT FOR STABILITY WITH CRUTCHES. PATIENT WISHING TO SPEAK WITH THIS RN REGARDING DISCHARGE RESOURCES.
--- NOTE | 2021-12-17 11:20 | NUR ---
INTO PATIENT ROOM, DR. HOGAN AT THE BEDSIDE SPEAKING WITH PATIENT. DR. HOGAN OUT OF THE ROOM. PATIENT STATES THAT AT THIS TIME HE IS UNSURE IF HE WILL BE ABLE TO RETURN TO HIS HOME DUE TO AN ISSUE BETWEEN HIM AND HIS ROOMATE. PATIENT STATES BOTH TENNANTS HAVE DOGS WHICH MAY BE ELIMINATING IN THE HOME . PATIENT ALSO CONCERNED THAT THE WALKER WILL NOT FIT THROUGH THE KITCHEN OR BATHROOM DOORWAY. PATIENT GOES ON TO STATE HE IS CONCERNED THAT IF HE IS DISCHARGED WITHOUT A PLACE TO STAY OR BACK INTO THE HOME WITH DOG FECES IN IT HIS WOUND MAY BECOME INFECTED. DISCUESSED POSSIBLE DISCHARGE TO [place] WITH THE PATIENT . PATIENT STATES HE IS UNABLE TO LIVE WITH HER SHE LIVES IN A TRAILOR ON A LEASED PROPERTY. DURING OUR CONVERSATION THE PATIENT RECVS A PHONE CALL FROM A VISITOR WHO HE STATES LATER IS HIS SON. HE STATES HIS SON LIVES IN [place]. DISCUSSED POSSIBLE DISCHARGE HOME WITH SON. PATIENT IS UNABLE TO LIVE THERE HIS SON LIVES WITH A GIRLFRIENT, CHILD AND OTHER FAMILY. DISCUSSED WITH PATIENT THAT EDWARD RN HAD ALREADY REACHED OUT TO [facility], THE PATIENT DOES NOT QUALIFY FOR MEDICAID HE IS NOT A [place] CITIZEN. PATIENT STATES HE HAS A GREEN CARD AND IS A [facility] [employer], BUT NOT A CITIZEN. ADVISED PATIENT TO CONTINUE TO SPEAK WITH HIS CURRENT ROOMATE TO SEE IF HE IS ABLE TO RETURN HOME. THIS RN WILL PROVIDE A LIST OF COMMUNITY RESOURCES TO ASSIST THE PATIENT WITH HOUSING AND OTHER FINANCIAL ISSUES.
--- NOTE | 2021-12-17 11:30 | NUR ---
this rn in pts room to take pt a coffee. pts daughter in room and brought pt a bag of snacks- this rn asked pt what wa in there- pt stated "sugar free snacks" this rn notified md- per md directions snacks are to be tightly controlled and was asked to remove snacks. this rn and removed pts snacks- pt stated "am i a child?" this rn educated pt about need to tightly control his blood sugars in the bag were nilla waffers, chocolate chip cookies, milanos, and keibler cookies- not sugar free. pts accounting manager assistant controller cookies and in nutrition room.
--- NOTE | 2021-12-17 12:00 | NUR ---
jacquelyn can to take pt down to lobby so he can see his grandchild.
--- NOTE | 2021-12-17 12:30 | NUR ---
THIS RN IN PTS ROOM TO GIVE PT HUMALOG. PT FRUSTRATED [facility] STAFF AT THIS TIME DUE TO CHANING OF STATUS AND PLAN OF CARE- PT HAS BEEN TELLING STAFF DIFFERENT STORIES SO PLAN OF CARE HAS HAD TO CHANGE. THIS RN DISCUSSED WITH PT THAT SOME HOUSING ISSUES CANNOT BE SOLVED IN THE HOSPITAL AND GETTING ON DISABILITY MIGHT HAVE TO BE ON PT DUE TO [place]. JAMIE ANGEL FROM [facility] PLANNING TO FOLLOW UP.
--- NOTE | 2021-12-17 13:13 | NUR ---
PT REQUESTED I NOT DISTURB PT AT THIS TIME. WILL FOLLOW NEEDED
--- NOTE | 2021-12-17 15:00 | NUR ---
THIS RN IN PTS ROOM TO GIVE PTS MEDS AND TO CHANGE PTS IV STATUS. PT APOLOGIZED TO THIS RN FOR DIRECTING HIS "FRUSTRATION/ ANGER" PT STATES PAIN IS 10/10- SCHEDULED MEDS PROVIDED. MIDLINE REMOVED DUE TO PT REPORTING THAT IT WAS PAINFUL. PERIPHERAL IV IN PLACE BY PRASAD ANGEL .
--- NOTE | 2021-12-17 18:00 | NUR ---
THIS RN IN PTS ROOM TO GIVE SCHEDULED MEDS. PT IN BETTER MOOD AT THIS TIME, PT ON PHONE WITH DISCUSSING WHERE HIS DOG SHOULD GO WHILE STILL IN HOSPITAL- THIS RN GAVE PT SOME RESOURCES THAT HE COULD CALL. PT STATES THAT HE NEEDS NOTHING AT THIS TIME.
--- NOTE | 2021-12-17 19:35 | NUR ---
REPORT RECEIVED FROM JEANNE DOMÍNGUEZ. pt RESTING IN BED, TALKING ON PHONE. REQUESTING COFFEE AND SNACK. pt REQUESTING PAIN MEDICATION AVAILABLE. SMILING WHILE TALKING ON PHONE. NO DISTRESS NOTED. CALL LIGHT IN REACH.
--- NOTE | 2021-12-17 20:06 | NUR ---
COFFEE AND SUGAR FREE SNACK PROVIDED TO pt. pt RATES PAIN 10/10 IN LEFT LEG. PRN PAIN MEDICATION ADMINISTERED. CALL LIGHT IN REACH. NO ADDITIONAL REQUESTS.
--- NOTE | 2021-12-17 22:00 | NUR ---
pt RESTING IN BED AWAKE, TALKING ON PHONE. ASSESSMENT COMPLETE. pt RATES PAIN 10/10 POSTERIOR LEFT LEG. SCHEDULED PAIN AND ANXIETY MEDICATIONS ADMINISTERED PER REQUEST. IV SITE FLUSHED WNL. IV ANTIBIOTIC INFUSING WNL. CALL LIGHT IN REACH. ICE WATER REFILLED AND IN REACH.
--- NOTE | 2021-12-17 23:29 | NUR ---
IV ANTIBIOTIC COMPLETE. IV SL WNL. pt STATES HE WILL TRY TO GET SOME SLEEP. NO REQUESTS AT THIS TIME. CALL LIGHT IN REACH. LEFT LEG ELEVATED ON PILLOW.
--- NOTE | 2021-12-18 00:40 | NUR ---
PATIENT CALLED STATED " WENT TO THE BATHROOM". WENT IN TO THE ROOM TO EMPTY THE URINAL 975ML. DONE. NO OTHER NEEDS AT THIS TIME.
--- NOTE | 2021-12-18 02:10 | NUR ---
pt SLEEPING, AWAKENS TO VOICE AND TOUCH OF RIGHT FOOT FOR SCHEDULED PAIN MEDICATIONS. ASSESSMENT COMPLETE. pt RATES PAIN 10/10. SCHEDULED MEDICATION ADMINISTERED. ICE WATER REFILLED AND pt DRINKING. pt CLOSING EYES TO GO BACK TO SLEEP.
--- NOTE | 2021-12-18 03:55 | NUR ---
CALL LIGHT ANSWERED. pt COMPLAINS OF "FEELING LIKE MY SUGAR IS LOW". CBG 73 AT THIS TIME. pt FEELS WEAK, SHAKY, IS SWEATING. SNACK OF ONE COOKIE, SF JELLO, GRANOLA BAR AND DIET SPRITE PROVIDED. pt HAS CALL LIGHT IN REACH. NO ADDITIOANAL REQUESTS.
--- NOTE | 2021-12-18 06:05 | NUR ---
pt SLEEPING WITH HEADPHONES ON. AWAKENS TO TOUCH OF RIGHT LEG. RATES PAIN 10/10 UPON AWAKENING. STATES STILL FEELS SHAKY. CBG 132. SF JELLO PROVIDED REQUESTED. ICE WATER REFILLED. VSS. SCHEDULED PAIN MEDICATIONS ADMINISTERED. CALL LIGHT IN REACH.
--- NOTE | 2021-12-18 06:11 | NUR ---
V/S AND I&O'S TAKEN AND CHARTED. PICKED UP GARBAGES. ICE WATER REFILLED. SUGAR FREE JELLO PROVIDED WITH PRIMARY JEANNE JHAVERI'S PERMISSION.
--- NOTE | 2021-12-18 07:45 | NUR ---
Report recieved from Luz ANGEL. Patient sleeing at time of the report
--- NOTE | 2021-12-18 09:51 | NUR ---
I [facility] with [facility] today, updated per current information we have per patient statement that he cannot go back where he was prior to coming in to the hospital. Ervin will make contact with Almas to determine his plan upon discharge.
--- NOTE | 2021-12-18 09:54 | NUR ---
patient alert and oriented X3. Cooperative. reports increased pain with standing at bedside to void. requested oxycodone. tolerating meals without nausea. refused senna, stating he is having bms without difficulty. actively participates in own care.
--- NOTE | 2021-12-18 10:55 | NUR ---
Visited with Almas this morning, he states that he has "no where to go." I asked him about Father and Sister who were listed on his admit information, he states "the person I put down as my Father was someone that I was working for and lived with, he is not really my Father. The person I listed as sister is not my sister, it is the person I listed as "Father" daughter. Neither of them are related to me, I lived with them before coming to the hospital but am not welcome back to their home, adding "the home is not suitable anyway, there is animal feces and urine everywhere there." I mentioned to Mr. Brasher that his son came to [facility] yesterday, could he stay with his son for a bit. He replied "no" adding, he is not my son, he is the son-in-law of my ex-girlfriend, he is with my ex-girlfriends daughter and they have a baby together, when I jadyn with my ex-girlfriend I called him son, but he is not my son and I cannot go to their house. He also shared that all his family is in [place], and the only person he is really related to is his ex- in [place]. I did inquire if we could get him to [place], could he go to his ex-'s house to stay until he could get things figured out. He stated "No, we have already talked about that, and that is not an option." Mr. Brasher stated that he called [facility] today but it took them a while to find his case. I did let him know that I had also talked to them today, and they should be calling him back. He stated that he would like to talk to them and get on disability through social security, but was not sure if that could happen since he was not a citizen in the [place]. I suggested that he follow-up with [facility] for the resources they could offer, and also consider calling [employer] and other phone numbers that were given to him yesterday by Kar/Discharge Planning. Mr Brasher did share with me that he has a phone appt with on January 22 to see if he will qualify for their benefits.
--- NOTE | 2021-12-18 11:07 | NUR ---
DIET REMAINS 75 GRAM CONSISTENT CARB. NURSING CONTINUES TO PROVIDE SNACKS TO PATIENT. SNACKS BROUGHT IN FROM HOME BUT NURSING PROVIDING. DIETARY HAS FOOD PREFERENCES AND IS PROVIDING MEALS TAKING THOSE INTO ACCOUNT. DIETARY CAN CONTINUE TO PROVIDE DOUBLE PROTEIN PORTIONS AT MEALS TO PROVIDE MORE TO EAT WITHOUT GOING OVER CARB AMOUNT.
--- NOTE | 2021-12-18 12:45 | NUR ---
Patient requested a snack at 1100. Checked fsbg, and provided inslin see eMAR. Notifed Genevieve ANGEL that patient had case managment concerns and had spoken with ALISE today and she agreed to see him this afternoon. Patient eating lunch approx 1230. Call light within reach and denies needs at the time of rounding.
--- NOTE | 2021-12-18 14:12 | NUR ---
Ervin from [facility] called me back this afternoon and states that she has spoken with Almas regarding his current medical condition and living situation. Ervin will attempt to get Almas a 30 day motel stay beginning on this Friday the or Friday the . States she has made this an urgent case and is attempting for 30 days to help ensure good wound healing and decreased chance of Almas returning to the ED. Ervin did request that we also provide Almas with information for addtional resources in the community. He has been given the phone number for the [employer], [employer], etc. Ervin also indicated that he does get $250.00 per month in food stamps but might possibly need taxi or bus tickets upon discharge. Information will be sent to our CHW.
--- NOTE | 2021-12-18 15:00 | NUR ---
PATIENT IS REPORTING 10/10 PAIN AFTER PHYSICAL THERAPY. PROVIDED PRN OXYCODNE SEE MAR. PATIENT IS CALM, COOPERATIVE, AND INTERACTING APPROPRIATLY. HE DESCRIBES HE FEELS INCREASED PAIN WITH INCREASED ACTVITY. HE REQUESTED A SNACK -2 SUGAR FREE CHOCOLATE CHIP COOKIES AND A COFFEE WTIH 3 SPLENDA
--- NOTE | 2021-12-18 15:36 | NUR ---
1500- patient was sleeping in bed. Offered ambulation in the [place]ingsley. Patient up with sba and fww to void then she ambulated a loop and a half in the billingsley. she stated her pain was tollerable with ambulation. she requested ice water. sitting in bed resting at this time.
--- NOTE | 2021-12-18 16:17 | NUR ---
Entered patient room to reasses pain. patient is sleeping with headphones on. will recheck when FSBG is due
--- NOTE | 2021-12-18 18:32 | NUR ---
patient has been alert, oriented, and cooperative this shift. He has been working on his own discharge planning provided by CM. He met with case managment today and he discussed transport planning and practice with PT. He consistently reports his pain 10/10 under the left thigh. He is receiving scheduled tramadol, and tylenol, and prn oxycodone. he reports an increase in pain with activity. He stands indpendently at the edge of bed to void. When rating his pain 10/10 he is calm, makes eye contact, and is willing to have converstaions. He is able to participate with therapy. He slept for approximatly 1.5 hours this afternoon. He requested a morning snack at 11 am. He was given a granola bar and a sugar free vanilla pudding due the yougurt he was eating being out of stock. This afternoon he requested 2 sugar free cookies brought from home and a coffee with 3 splenda at 4 pm. He is tolerating meals without nausea. He stated he had a bowel movement this afternoon and he declined bm meds this morning.
--- NOTE | 2021-12-18 19:30 | NUR ---
REPORT RECEIVED FROM JEANNE LUDWIG. pt RESTING IN BED AWAKE. URINAL EMPTIED. pt REQUESTING COFFEE. CALL LIGHT IN REACH.
--- NOTE | 2021-12-18 20:16 | NUR ---
pt REQUESTING SNACK. CBG 157, SS AND SCHEDULED INSULIN ADMINISTERED WITH SNACK AND COFFEE. ASSESSMENT COMPLETE. pt RATES PAIN 10/10 IN LEFT STUMP, POSTERIOR. PRN PAIN MEDICATION ADMINISTERED. DRESSING CDI. ELEVATED ON PILLOW. VSS. CALL LIGHT IN REACH. ICE WATER REFILLED.
--- NOTE | 2021-12-18 22:00 | NUR ---
IN pt ROOM TO ADMINISTER SCHEDULED MEDICATIONS. pt RATES PAIN 10/10 IN LEFT STUMP POSTERIOR. pt REPORTS TO RN THAT HE HAD "AN ACCIDENT". pt RELUCTANT TO EXPLAIN, REQUESTING RN NOT TO SAY ANYTHING. pt REPORTS FALLING AFTER COMING OUT OF RESTROOM GETTING READY FOR BED. pt DESCRIBES FALL RIGHT LEG BUCKLING UNDER, CATHING SELF ON WALKER AND LOWERING SELF TO GROUND. REPORTS THAT LEFT STUMP BARELY TOUCHED FLOOR. LEFT LEG ASSESSED, NO NEW DRAINAGE NOTED ON CHLOÉ WRAP. pt CONTINUES TO RATE PAIN 10/10. SCHEDULED MEDICATIONS ADMINISTERED. LEFT LEG ELEVATED. pt DENIES NEED FOR ICE PACK. NOTIFIED. NO NEW ORDERS. BED ALARM SET AT THIS TIME, pt INSTRUCTED TO USE CALL LIGHT BEFORE GETTING OUT OF BED FOR SAFETY. VERBALIZES UNDERSTANDING.
--- NOTE | 2021-12-18 22:46 | NUR ---
POST HUDDLE FALL, WITH PRIMARY RN, SHAKILA, MYSELF. PRIMARY RN SHAKILA DID DISCUSS WITH PT ABOUT THE NEW POC USING THE BEDALARM TO ENSURE HIS SAFETY.
--- NOTE | 2021-12-18 23:12 | NUR ---
CALL LIGHT ANSWERED. IV PUMP ALARMING. PUMP OFF AT THIS TIME. SBA TO USE URINAL AT BEDSIDE WITH FWW. BED ALARM BACK ON. CALL LIGHT IN REACH. pt TALKING ON PHONE.
--- NOTE | 2021-12-19 00:06 | NUR ---
IN ROOM TO CHECK ON pt. pt RATES PAIN 10/10 IN LEFT STUMP POSTERIORLY. PRN PAIN MEDICATION ADMINISTERED REQUESTED WITH PRN SLEEP AND ANXIETY MEDICATIONS. pt REQUESTING TO SLEEP IF SLEEPING INSTEAD OF RECEIVING 0200 ULTRAM. ICE WATER REFILLED, CALL LIGHT IN REACH.
--- NOTE | 2021-12-19 02:15 | NUR ---
CHECKED ON pt. RESTING IN BED AWAKE. RATES PAIN 10/10 IN LEFT LEG POSTERIORLY. SCHEDULED PAIN MEDICATION ADMINISTERED. SBA WITH FWW TO STAND AT SIDE OF BED TO VOID. pt AMBULATED IN ROOM AROUND BED WNL. BACK IN BED WITH LEFT LEG ELEVATED. ICE WATER REFILLED. ASSESSMENT COMPLETE. DRESSING CDI, SHADOWING UNCHANGED UNDER CHLOÉ BANDAGE. CALL LIGHT IN REACH.
--- NOTE | 2021-12-19 05:58 | NUR ---
CALL LIGHT ANSWERED. SBA TO SIDE OF BED WITH FWW TO VOID. pt BACK IN BED. RATES PAIN 10/10 IN LEFT LEG. LEFT LEG ELEVATED. SCHEDULED PAIN MEDICATIONS ADMINISTERED. COFFEE PROVIDED. pt REQUESTING BLOOD SUGAR TO BE CHECKED. SHAQUILLE SEGAL IN ROOM FOR BLOOD SUGAR CHECK.
--- NOTE | 2021-12-19 07:38 | NUR ---
Report received from Luz Alfonso. Patient was sleeping at the time of bedside report. Will plan to awake patient for am assessment when FSBG is due.
--- NOTE | 2021-12-19 09:13 | NUR ---
while in room providing morning medications, patient requested to stand at the edge of the bed to void. visulized patient standing and stood just outside the room while patient voided. observed patient return to bed indpendently. patient was stable with independent transfer. Patient declined senna and pepcid this morning.
--- NOTE | 2021-12-19 09:45 | NUR ---
Patient requested to take a nap at 1000 after his tramadol. He stated he was feeling tired and he would like to rest. He stated he would not like a snack offered to him if he is sleeping. He will call for it when he wakes up.
--- NOTE | 2021-12-19 09:56 | NUR ---
PT AWAKE IN BED, VITALS DONE. CALL LIGHT IN REACH. NO FURTHER NEEDS AT THIS TIME.
--- NOTE | 2021-12-19 10:51 | NUR ---
COVID SWAB COLLECTED SENT TO INHOUSE LAB
--- NOTE | 2021-12-19 12:22 | NUR ---
blood surgar 136. patient stated he had a good nap. he is currently eating lunch. denies needing anything at this time. Asken when pain medications are due next. he was notified 1400. he stated that was ok.
--- NOTE | 2021-12-19 13:59 | NUR ---
PT AWAKE IN BED. CALL LIGHT IN REACH. NO FURTHER NEEDS AT THIS TIME.
--- NOTE | 2021-12-19 14:09 | NUR ---
WOKE PATIENT UP FOR VITALS AND DUE MEDICATIONS. HE REQUESTED A SNACK AND TO STAND AT THE EDGE OF THE BED TO VOID. VOIDED 900. CONTINUES TO REPORT PAIN 07/15. STATED HE DECLINED THERAPY TODAY. WILL CONTINUET TO MONITOR.
--- NOTE | 2021-12-19 16:00 | NUR ---
Rounded on patient. in bed watching tv. he requested pain medication. offered oxycodone and let him know the plan for scheduled medications. He declined any additonal needs at this time
--- NOTE | 2021-12-19 17:47 | NUR ---
patient has been drowsy and napped off and on today. He states "I am not feeling well. He states my leg hurts from last night and I feel warm." He was offered a temperature change in the room, ice, and repositioning. He declined all offers. Stating "thanks sweethart, none of that will help." He calls approprately when needing to get out of bed. He is tolerating meals without nausea. He did not have a morning snack since he was sleeping. At about 4 pm he requested his evening stack. He requested 2 sugar free chocolate chip cookies and a coffee with 3 splenda. He has given his own insulin injections today. He consistently rates his pain 10/10. Alternative options to pain medication have been offered. Ice, repositioning, and distraction. He politely declines. He declined therapy stating he was not feeling well.
--- NOTE | 2021-12-19 18:01 | NUR ---
MEDICATION DUE. THIS RN TO ROOM. STAND BY ASSIST UP TO VOID IN URINAL. PT REPORTS THROBBING PAIN IN "MY STUMP" WITH STANDING AND "WHENEVER I GET UP." PT VOIDS WITHOUT ISSUE. PT REPORTS PAIN IS IMPROVED WITH REST, CONTINUES TO RATE PAIN AT 10/10 WITH REST. SEE MAR FOR MEDICATION GIVEN. VITAL SIGNS STABLE. NO ADDITIONAL REQUESTS OR COMPLAINTS. CALL LIGHT WITHIN REACH. BED RAILS UP. PTS PRIMARY RN UPDATED.
--- NOTE | 2021-12-19 19:20 | NUR ---
REPORT RECEIVED FROM JEANNE LUDWIG. pt REQUESTING TO EAT SANDWICH. CBG 182 BY JEANNE NORIEGA. pt RESTING IN BED. CALL LIGHT IN REACH.
--- NOTE | 2021-12-19 19:49 | NUR ---
pt RESTING IN BED AWAKE, TALKING ON PHONE WITH MOTHER. EATING SANDWICH. SS INSULIN ADMINISTERED PER ORDERS. pt VERBALIZES UNDERSTANDING TO CALL BEFORE GETTING OUT OF BED. CALL LIGHT IN REACH. NO ADDITIONAL REQUESTS AT THIS TIME.
--- NOTE | 2021-12-19 21:06 | NUR ---
pt AWAKE RESTING IN BED. RATES PAIN 10/10. SCHEDULED AND PRN PAIN MEDICATIONS ADMINISTERED. ICE PACK PLACED UNDER LEFT STUMP AND ELEVATED ON PILLOW. pt STATES THROBBING SENSATION POSTERIORLY WITH TOUCH, NUMBNESS ON TOP OF LEFT LEG. SBA TO SIDE OF BED FOR VOID AND BACK IN BED WITH ICE PACK IN PLACE. VSS. CALL LIGHT IN REACH.
--- NOTE | 2021-12-19 22:04 | NUR ---
pt RESTING IN BED WATCHING TV. WHEN ASKED, pt RATES PAIN 10/10 IN LEFT LEG. LEG REMAINS ELEVATED ON PILLOW. SCHEDULED PAIN MEDICATIONS ADMINISTERED. pt REQEUSTING TO SLEEP IF SLEEPING INSTEAD OF GETTING SCHEDULED MEDICATIONS FOR PAIN THROUGHOUT NIGHT. STATES "I'M REALLY TIRED". PRN SLEEP MEDICATION ADMINISTERED. CALL LIGHT IN REACH.
--- NOTE | 2021-12-19 23:36 | NUR ---
EMPTIED URINAL 800ML. JEANNE JHAVERI WAS NOTIFIED FOR PATIENT ASKED FOR PAIN MEDS.
--- NOTE | 2021-12-19 23:37 | NUR ---
CALL LIGHT ANSWERED. SBA WITH SHAQUILLE SEPULVEDA IN ROOM FOR pt TO VOID AT SIDE OF BED. BED ALARM ON. pt IN BED WITH LEFT LEG ELEVATED ON PILLOW. pt REQUESTING PRN PAIN MEDICATION. OFFERED ICE PACK, pt DENIES. DISCUSSED NEXT AVAILABLE PRN PAIN MEDICATION. pt AGREEABLE, DENIES ADDITIONAL NEEDS. CALL LIGHT IN REACH.
--- NOTE | 2021-12-20 01:20 | NUR ---
ROUNDED ON pt, RESTING IN BED WITH EYES CLOSED. NO DISTRESS NOTED. CALL LIGHT ANSWERED AFTER RN CLOSES DOOR, pt REQUESTING PAIN MEDICATION. PRN PAIN MEDICATION ADMINISTERED FOR 10/10 PAIN. CALL LIGHT IN REACH. LIGHTS OFF IN ROOM.
--- NOTE | 2021-12-20 02:27 | NUR ---
CHECKED ON pt. RESTING IN BED WITH EYES CLOSED, SNORING. NO DISTRESS NOTED.
--- NOTE | 2021-12-20 05:23 | NUR ---
CALL LIGHT ANSWERED. SBA WITH FWW TO USE URINAL AT SIDE OF BED. pt BACK IN BED. RATES PAIN 10/10. SCHEDULED PAIN MEDICATIONS ADMINISTERED. VSS. URINAL EMPTIED. CBG CHECK PER pt REQUEST BY SHAQUILLE SEGAL AT THIS TIME. CALL LIGHT IN REACH.
--- NOTE | 2021-12-20 07:40 | NUR ---
THIS FLAT SURFACER JEWEL TOOK PTS BLOOD SURGAR. PT REFUSED TO SIT UP IN THE CHAIR. WHITEBOARD UPDATED. CALL LIGHT WITHIN REACH. NO FURTHER NEEDS AT THIS TIME.
--- NOTE | 2021-12-20 09:00 | NUR ---
N TO ASSESS PT WHO IS REPORTING PAIN IN HIS LBKA, STATING "IT THROBS IN THE BACK". PT IS ALERT, ORIENTED, WITH NO OTHER CONCERNS OR REQUESTS AT THIS TIME. LUNG SOUNDS CLEAR, HR REGULAR, BOWEL TONES ACTIVE, REPORTS LAST BM 12/19/21. PT REQUESTING TO SHOWER TODAY. WILL ASK DOCTOR FOR ORDER. SKIN ASSESSMENT GOOD, NO KNEW SORES, WOUNDS NOTED. LFA IV IN PLACE, SALINE LOCKED. DRESSING TO LBKA IN PLACE, NO NEW DRAINAGE NOTED. PT IS SITTING UP IN BED, EATING BREAKFAST. CALL LIGHT WITHIN REACH.
--- NOTE | 2021-12-20 09:18 | NUR ---
Spoke with Remedios from [employer]. She is working on auth for payment for [employer] from 12/21/21-01/18/22. They will work with pt to assist with his further needs.
--- NOTE | 2021-12-20 09:55 | NUR ---
PT REQUESTED TWO SUGAR FREE COOKIES. THIS CUSHION SPRING ASSEMBLER GAVE PT THE COOKIES PER JEANNE RICKS. NO FURTHER NEEDS AT THIS TIME.
--- NOTE | 2021-12-20 11:34 | NUR ---
IN TO CHECK ON PT WHO REPORTS INCREASED PAIN/SORENESS AFTER PHYSICAL THERAPY. PT SITTING UP IN BED WATCHING TV, PT HAD SOME SUGAR FREE COOKIES FOR A SNACK. HAS NO OTHER REQUESTS AT THIS TIME.
--- NOTE | 2021-12-20 13:00 | NUR ---
Received call from Remedios at [facility]. They have a confirmatin number for [address] for pt and she will email to me. Updated Remedios with follow appts and times for Dr. Prescott and Vivian Chow to establish care. Spoke with Dr. Perales and RX completed as well as a note and faxed to [facility] for a walker and a shower chair. We discussed HH, but pt will not be home bound and plans on driving himself home from the hospital and to his appts.
--- NOTE | 2021-12-20 14:30 | NUR ---
IN TO GIVE PT MEDS, PT SLEEPING, EASY TO WAKE WITH LIGHT TOUCH. PT HAS HEADPHONES ON, COULD NOT HEAR. REPORTS 10/10 PAIN IN LLE. EDWARD FROM CASE MANAGEMENT WORKING WITH PT TO GET HIM SAFELY DISCHARGED TOMORROW. PT HAS NO OTHER REQUESTS OR NEEDS AT THIS TIME. EASY TO FALL BACK TO SLEEP AFTER MED ADMINISTRATION.
[2021-12-20] MEDS ORDERED: NICOTINE LOZENGE4 MG BUCCAL (15:18)
[2021-12-20] MEDS ORDERED: GABAPENTIN400 MG PO (15:19)
[2021-12-20] MEDS ORDERED: OXYCODONE HCL5 MG PO (15:19)
[2021-12-20] MEDS ORDERED: TRAMADOL HCL50 MG PO (15:19)
--- NOTE | 2021-12-20 16:16 | NUR ---
SAID OK FOR PT TO HAVE SHOWER AT THIS TIME. ORDER PLACED IN CHART.
--- NOTE | 2021-12-20 16:19 | NUR ---
PER PT'S REQUEST TO EDWARD FROM CASE MANAGMENT, HE WOULD LIKE TO SHOWER. VERBAL OK BY IN TO GET PT PREPPED FOR SHOWER AND HE STATES HE IS ON THE PHONE AND WOULD LIKE TO WAIT APPROX 30 MINUTES WHILE HE TALKS ON THE PHONE. PT ASKED TO PUSH CALL LIGHT WHEN HE IS READY.
--- NOTE | 2021-12-20 17:48 | NUR ---
In to speak with pt to check if he will go to OP therapy. He states he needs to speak with me as he no longer wants to go to the motel. He is now stating his adoptive dad paid $300 to have the house cleaned and he will go home with them. Let him know where he chooses to go is up to him. I will let Remedios know in the am that he is declining the hotel. He would like to go to OP therapy. Discussed with pt he is discharging tomorrow.
--- NOTE | 2021-12-20 18:19 | NUR ---
PT FINISHED WITH DINNER AND STATES HE IS READY FOR SHOWER. PT ABLE TO EAT 100% OF HIS DINNER, DENIES NAUSEA. LEFT STUMP COVERED WITH PLASTIC BAG AND SEALED FOR SHOWER. PT UP TO SHOWER INDEPENDANTLY, USES WALKER APPROPRATLY TO AMBUALTE AROUND THE ROOM. PT SHOWERS INDEPENDANTLY, THIS RN REMAINS IN ROOM, NO ASSISTANCE NEEDED. LINENS CHANGED. PT BACK TO BED. REPORTS 10/10 PAIN, SEE MAR FOR SCHEDULED MEDICATION GIVEN. VITAL SIGNS STABLE. PT DENIES ADDITIONAL REQUESTS OR COMPLAINTS. CALL LIGHT WITHIN REACH. BED RAILS UP.
--- NOTE | 2021-12-20 18:26 | NUR ---
PT CONTINUES TO REPORT 10/10 PAIN. HAS BEEN WORKING WITH EDWARD, CASE MANAGEMENT ALL DAY ABOUT DISCHARGE TO A MOTEL TOMORROW. PT PLANS TO DRIVE AWAY FROM THE HOSPITAL, ALL NARCOTIC MEDS TO BE STOPPED AT 0600. PT REQUESTING WALKER AND SHOWER CHAIR WITH DISCHARGE, EDWARD WORKING TO ASSIST THE PT WITH ALL HIS NEEDS. PT ATE DINNER AND THEN IS UP TO SHOWER WITH JEANNE NORIEGA. NAKIA DRESSING COVERED PRIOR TO SHOWERING. DRESSING IS NOTED TO BE CLEAN, DRY, AND INTACT. NO NEW DRAINAGE NOTED. LINENS CHANGED.
--- NOTE | 2021-12-20 19:37 | NUR ---
pt in bed, room air, no c/o pain. L stump covered with corazon wrap. watching tv.
--- NOTE | 2021-12-20 20:18 | NUR ---
CBG 141, DECLINES 1 UNIT SS HUMALOG, RECEIVED 15 UNITS SEMGLEE. ON ROOM AIR, MEGHNA LFA PATENT. COOPERATIVE.
--- NOTE | 2021-12-20 22:10 | NUR ---
cont to decline ss insulin. charge nurse aware. received [id number] units earlier. melatonin given per insomnia, on room air, reposition self in bed. l stump covered with corazon wrap. elevated in pillows, popliteal pulses palpable. cooperative. voiding qs. up to edge of bed uses walker and urinal. placed self back to bed
--- NOTE | 2021-12-21 00:19 | NUR ---
resting, turns and repositions self in bed. L stump dressing in place, elevted in pillows. On room iar, no distress noted, eyes closed
--- NOTE | 2021-12-21 01:17 | NUR ---
pt up to br, voided and had abm, back to bed , SBA/FWW, c/o 10/10 l stump pain, medicated with 2 norco, sugar free jellow and fresh water given on request. cooperative.
--- NOTE | 2021-12-21 04:32 | NUR ---
ON ROOM AIR. CLEAR LUNGS, HASD BM THIS SHIFT. VOIDING QS. SL PATENT. LBKA COVERED WITH CHLOÉ WRAP. ELEVATED IN PILLOWS, POPLITEAL PULSES PRESENT L KNEE AREA. UP TO BR WITH FWW AND SBA. CONTINUES TO HAVE POOR TO FAIR PAIN CONTROL, TAKES SCHEDULED ULTRAM AND TYLENOL, MEDICATED WITH OXYCODONE WITH GOOD PAIN COANTROL. PT TOLERATING DIET WELL, CBG 141 DECLINED 1 UNIT OF SS HUMOLOG INSULIN. RECEIVED 15 UNITS SEMGLEE. NO EMESIS. PT IS TO BE DC HOME TODAY. COOPERATIVE. ALERT AND ORIENTED, USES CALL LIT
--- NOTE | 2021-12-21 06:34 | NUR ---
BROUGHT PT JARETH. CONFIRMED WITH PT THAT HE DENIES NEEDING ANY PAIN MEDICATIONS THIS MORNING WHEN MEENU RN ASKED HIM. PT ALSO TOLD THIS RN HE IS NOT IN PAIN AND NO THANKYOU. PT DENIES FURTHER NEEDS, CALL LIGHT IS CLOSE.
--- NOTE | 2021-12-21 06:36 | NUR ---
pt awakes easily, on room air, declined vital signs, declined to take scheduled tylenol and Ultram. "I do not need them, Felix ok, gave me a prescription that I can fill when I go home" "Yes I know I wont be able to get any more meds or narcotics before I get dc'd as Felix driving myself from here". M Large churn tender notified and she went and talk to pt.
--- NOTE | 2021-12-21 07:20 | NUR ---
PT CALL LIGHT ON. PT REQUESTS COFFEE AND "SOME OF MY COOKIES." PTS RN STATES THIS WOULD BE OK. BLOOD SUGAR TAKEN. COFFEE AND COOKIES DELIVERED. PLAN OF CARE REVIEWED WITH PT AND PT STATES "I'M READY TO GO HOME, A LITTLE NERVOUS, BUT READY." PT DENIES ADDITIONAL REQUESTS OR COMPLAINTS. CALL LIGHT WITHIN REACH. BED RAILS UP.
--- NOTE | 2021-12-21 07:56 | NUR ---
Spoke with Dr. Perales this am. She would prefer pt go through Dr. Prescott or PCP for OP therapy. Pt has appt Friday with Dr. Prescott and per his note he with he will set up further appts. Per Dr. Perales pt has been declining his PT therapy.
--- NOTE | 2021-12-21 08:07 | NUR ---
Called and spoke with Johnathon from [facility]. UPdated pt stating he is going home and shower is around 36 inches and he does not think a shower chair will fit. They measured their bath stool and it is 21 inches wide which should fit into most showers.
--- NOTE | 2021-12-21 08:35 | NUR ---
Received call from Remedios at [facility]. UPdated pt now plans on dc to home. He had a discussion with Dr. Perales and stated he "got into it" with his adoptive dad, but still plans on dc to their house. I asked if they could keep the motel room through Friday in case his home situation does not work out. Remedios is agreeable to this. She will call him on Friday.
--- NOTE | 2021-12-21 08:36 | NUR ---
PT REFUSED ALL MORNING MEDS EXCEPT INSULIN. STATES HE WANTS TO DISCHARGE HOME, AND NOT TO A MOTEL ORIGINALLY PLANNED. EDWARD, CASE MANAGEMENT AWARE AND REPORTS KRISTIN SHOULD BE HERE THIS MORNING TO DROP OFF WALKER AND SHOWER CHAIR. PT SITTING UP IN BED EATING BREAKFAST.
[2021-12-21] MEDS ORDERED: LANTUS100 UNITS/ SUB-Q (08:42)
[2021-12-21] MEDS ORDERED: [UNRECOGNIZED DRUG - SUPPLY] MISC (08:43)
[2021-12-21] MEDS ORDERED: ACCU-CHEK GUID1 EAC3 (08:44)
[2021-12-21] MEDS ORDERED: ACCU-CHEK FAST1 EACH MISC (08:45)
[2021-12-21] MEDS ORDERED: ACCU-CHEK GUID1 EACH VI (08:45)
[2021-12-21] MEDS ORDERED: [UNRECOGNIZED DRUG - SUPPLY] TOP (08:46)
[2021-12-21] MEDS ORDERED: [UNRECOGNIZED DRUG - OTHER] VI (09:17)
[2021-12-21] MEDS ORDERED: LANTUS SOL100 UNIT/1 SUB-Q (09:17)
--- NOTE | 2021-12-21 09:36 | NUR ---
IN TO ASSIST PT WITH PACKING BELONGINGS TO GO HOME. PT CONTINUES TO REFUSE MOTEL STAY, STATES HE WILL BE GOING HOME. ALL PERSONAL BELONGINGS BAGGED, IV DC'D. VITAL SIGNS AND FINAL ASSESSMENT COMPLETE. PT REQUESTING TAXI VOUCHERS FROM CASE MANAGEMENT. KRISTIN ON THEIR WAY TO DROP OFF WALKER AND SHOWER CHAIR. VITAL SIGNS STABLE, DRESSING IN PLACE, NO SIGN OF DRAINAGE NOTED.
--- NOTE | 2021-12-21 10:26 | NUR ---
IN TO REVIEW PT'S DISCHARGE INSTRUCTIONS. PT VOICING CONCERN WITH TIME IT'S TAKING TO DISCHARGE. EXPLAINED TO THE PT MULTIPLE TIMES THAT WE ARE WAITING ON LINCMARIA M TO ARRIVE WITH HIS WALKER AND SHOWER CHAIR SO THAT HE CAN BE DISCHARGED. PT SITTING UP IN BED, REVIEWING DISCHARGE ORDERS.
--- NOTE | 2021-12-21 10:30 | NUR ---
Isa here with pts shower chair and walker. Spoke with pt and updated room at [address], [place], will be available through Friday. He cont. to plan on driving himself home, has not had pain meds since before midnight. He is speaking with [facility] free transportation and scheduling his rides for medical appts. Updated I cannot get him taxi tickets as he is able to drive himself and has free transport. This was discussed with the supervisors. Pt is ready for dc to home to friends he calls his adoptive family. Sister is home and will assist him when he gets home. Pt would not take taxi home and is insistant on not leaving his car and having someone pick it up later. Nurses in to pack his belongings and complete dc.
--- NOTE | 2021-12-24 09:14 | PATH ---
[facility] [address], [place] [address] Signed SPECIMEN(S): A LEFT FOOT SPECIMEN SOURCE: A. LEFT FOOT CLINICAL HISTORY: Osteomyelitis, left foot. Sepsis due to cellulitis, diabetic foot wound, gangrene. FINAL PATHOLOGIC DIAGNOSIS: Left lower leg and foot, amputation: - Foot with various areas of skin ulceration with underlying abscess formation. - There is acute osteomyelitis of the underlying bone. - The soft and bone tissue surgical resection margins are viable and uninvolved by necrosis or inflammation. [id number] MICROSCOPIC EXAMINATION: Histologic sections of all submitted blocks are examined by light microscopy. These findings, together with the gross examination, support the pathologic diagnosis. GROSS DESCRIPTION: The specimen, labeled "PC, A," and designated on the requisition "left foot osteomyelitis," is received fresh and consists of a [id number]-[id number]-[id number] amputation of the left lower leg and foot (foot: 25.6 cm in length x 9.5 cm in width, le.0 cm in length and ranging in diameter from 8.0-9.9 cm) with smooth transected tibial and fibular margins. The foot has attached first, second, fourth, and fifth toes each with allen toenail. There is a linear scar (2.5 cm in length) at the previous location of the third toe consistent with previous amputation. Adjacent to the linear scar is an area of ulceration in place of the third toe that measures 1.7 x 1.4 cm and is located 37.7 cm from the skin and soft tissue margin. There is a second area of ulceration on the distal plantar aspect of the foot that measures 3.3 x 2.1 cm and is located 44.5 cm from the skin and soft tissue margin. The remaining skin surface shows pink-allen to brown-allen skin with two superficial areas of ulceration (1.5 x 0.8 cm and 3.0 x 0.7 cm) on the anterior aspect of the leg located 5.0 cm from the skin and soft PATIENT NAME: MELISSA BENSON PATHOLOGY DATE OF : 73 REPORT #: [id number] PHYSICIAN: KATIANA PATHOLOGY PCP: GENNARO WILLIAMSON PA-C REPORT IS CONFIDENTIAL AND NOT TO BE RELEASED WITHOUT AUTHORIZATION [facility] [address], [place] [address] Signed tissue margin. The areas of ulceration on the distal foot are sectioned to reveal pink-allen, markedly hemorrhagic soft tissue, yellow-green purulent material, and markedly hemorrhagic and softened bone underlying the areas of ulceration. The superficial areas of ulceration on the anterior leg are sectioned to reveal a hemorrhagic cut surface. The underlying bone is grossly unremarkable. The skin soft tissue and bone margins appear grossly viable. Medic Technician sections are submitted as follows: Cassette Summary: (A1) Distal foot areas of ulceration (A2) Bone underlying distal foot areas of ulceration (decalcified in Decal Stat) (A3) Superficially ulcerated skin, anterior leg (A4) Skin soft tissue margin closest to ulcerations, shaved, en face (A5) Tibial and fibular margins, shaved (decalcified in Decal Stat) AC (under the direct supervision of a pathologist) The Gross Description was prepared using a voice recognition system. The report was reviewed for accuracy; however, sound-alike word errors, addition and/or deletions may occur. If there is any question about this report, please contact Client Services. PERFORMING LABORATORY: The technical component was performed by [facility], [address] [place] [id number] (Psychiatric Cns: Tamia Sherwood MD; CLIA# [id number]). The professional interpretation was performed by [facility], [facility], [address] [place] [address]. Diagnostician: Chandana Cortez MD Pathologist Electronically Signed 12/24/2021 Copies: ~ PATIENT NAME: MELISSA BENSON PATHOLOGY DATE OF : 73 REPORT #: [id number] PHYSICIAN: KATIANA PATHOLOGY PCP: GENNARO WILLIAMSON PA-C REPORT IS CONFIDENTIAL AND NOT TO BE RELEASED WITHOUT AUTHORIZATION
== END 2021-12-21 10:50 | disposition home or self-care (01) | DRG 854 ==
LOC: ED 11:36 → MS 15:48
PROVIDERS: Specialist; ADMIT Internal Medicine; ATTEND Internal Medicine
PROC: 0S9 Lower Joints, Drainage (ICD-10-PCS; 2021-12-02)
PROC: 0Y6U0Z0 Detachment at Left 3rd Toe, Complete, Open Approach (ICD-10-PCS; 2021-12-02)
PROC: 0Y6J0Z3 Detachment at Left Lower Leg, Low, Open Approach (ICD-10-PCS; principal; 2021-12-14 08:00)
DX: A41.02 Sepsis due to Methicillin resistant Staphylococcus aureus (principal); L03.116 Cellulitis of left lower limb; E11.52 Type 2 diabetes mellitus with diabetic peripheral angiopathy with gangrene; I70.262 Atherosclerosis of native arteries of extremities with gangrene, left leg; M86.172 Other acute osteomyelitis, left ankle and foot; I25.2 Old myocardial infarction; I25.10 Atherosclerotic heart disease of native coronary artery without angina pectoris; G89.4 Chronic pain syndrome; A40.1 Sepsis due to streptococcus, group B; E11.42 Type 2 diabetes mellitus with diabetic polyneuropathy; Z90.49 Acquired absence of other specified parts of digestive tract; Z98.890 Other specified postprocedural states; Z88.0 Allergy status to penicillin; Z79.4 Long term (current) use of insulin; Z79.899 Other long term (current) drug therapy; F17.210 Nicotine dependence, cigarettes, uncomplicated; Z79.82 Long term (current) use of aspirin
CPT/HCPCS: 01482; 36415; 36569; 64445; 64447; 71045; 73630; 73706; 73723; 76942; 80048; 80053; 80202; 81001; 83036; 83605; 83735; 85025; 87040; 87070; 87075; 87186; 87205; 88305; 88307; 88311; 93005; 93010; 96365; 96375; 96376; 97110; 97116; 97161; 97165; 97530; 99285-25; 99406; A9270; A9579; C1751; C9803; J0131; J0692; J0696; J1100; J1170; J1650; J1815; J1885; J2001; J2405; J2704; J2795; J3010; J3370; J3475; J3480; J7060; J7120; J7121; Q0177; Q9967; U0003

== ENCOUNTER 2022-03-13 16:21 | Inpatient (IN) | payer OTHER ==
[~2022-03-13] VITALS: Ht 180.3 cm; Wt 62.4 kg
[~2022-03-13 16:21] MED LIST changes: +ACCU-CHEK FAST1 EACH MISC; +ACCU-CHEK GUID1 EAC3; +ACCU-CHEK GUID1 EACH VI; +GABAPENTIN300 MG PO; +GABAPENTIN400 MG PO; +LANTUS SOL100 UNIT/1 SUB-Q; +NEURONTIN100 MG PO; +NICOTINE LOZENGE4 MG BUCCAL; +OXYCODONE HCL5 MG PO; +TRAMADOL HCL50 MG PO; +[UNRECOGNIZED DRUG - OTHER] VI; +[UNRECOGNIZED DRUG - SUPPLY] MISC; +[UNRECOGNIZED DRUG - SUPPLY] TOP
--- OUTSIDE RECORDS SUMMARY | 2022-03-13 16:24 | XMS ---
PreManage Notification: MELISSA BENSON Security [place] Trimmer Events No recent Security Events currently on file CRITERIA MET - PDMP CARE PROVIDERS Marvin Kramer Community Health Worker 10/19/2019-Current PHONE: [phone] Remedios Cisse Spring Setter/Supervisor Cold Rolling 12/18/2021-Current PHONE: [phone] GENNARO WILLIAMSON Physician Silver Chaser Current PHONE: [phone] Courtney has no Care Guidelines for this patient. Care History Medical/Surgical 11/27/2021 [facility] RECEIVED CASE MANAGEMENT CONSULT TO HELP PATIENT FIND A PCP, INSURANCE AND FOLLOW UP WITH WOUND CARE . -PATIENT HAS DMAP THAT IS NOW ACTIVE. -CHW CALLED PATIENT 2X AND LEFT A VOICEMAIL. WAITING ON A RETURN CALL. Dennys VISIT COUNT (12 MO.) [address] [id number] NAKIA Carias TOTAL 5 NOTE: Visits indicate total known visits. ED/UCC VISIT TRACKING (12 MO.) 03/13/2022 16:21 [facility] [place] TYPE: Emergency COMPLAINT: - LT LEG SWELLING 12/02/2021 11:37 [facility] [place] TYPE: Emergency COMPLAINT: - L LEG AND FOOT PAIN 11/21/2021 15:41 [facility] [place] TYPE: Emergency COMPLAINT: - WOUND CHECK 11/20/2021 08:20 [facility] [place] TYPE: Emergency COMPLAINT: - BODY ACHES, HEADACHE, NAUSEA, SWEATS DIAGNOSES: - Cellulitis of left lower limb - Type 2 diabetes mellitus with hyperglycemia - Type 2 diabetes mellitus with foot ulcer - long term care pharmacist (current) use of insulin - Non-pressure chronic ulcer of other part of left foot with unspecified severity - Fever, unspecified - Allergy status to penicillin - Contact with and (suspected) exposure to COVID-19 - Old myocardial infarction 03/25/2021 09:59 [facility] TYPE: Emergency COMPLAINT: - M79.605 DIAGNOSES: 0. (L) LEG PAIN 0. Anesthesia of skin 0. Pain in left leg 1. Type 2 diabetes mellitus with hyperglycemia 2. Other care home (current) drug therapy 2. Nicotine dependence, cigarettes, uncomplicated 2. Allergy status to penicillin 2. Cellulitis of left lower limb 2. half-way (current) use of insulin INPATIENT VISIT TRACKING (12 MO.) 12/02/2021 15:48 [facility] TYPE: Medical Surgical COMPLAINT: - SEPSIS DUE TO CELLULITIS,DIABETIC FOOT WOUND,GANGR DIAGNOSES: - half-way (current) use of insulin - Other care home (current) drug therapy - Type 2 diabetes mellitus with diabetic peripheral angiopathy with gangrene - Sepsis due to streptococcus, group B - Other specified postprocedural states - Atherosclerotic heart disease of [place] coronary artery without angina pectoris - Cellulitis of left lower limb - Sepsis due to streptococcus, group B - Old myocardial infarction - Acquired absence of other specified parts of digestive tract - Atherosclerotic heart disease of [place] coronary artery without angina pectoris - Type 2 diabetes mellitus with diabetic peripheral angiopathy with gangrene - Other long term acute care registered nurse (current) drug therapy - Nicotine dependence, cigarettes, uncomplicated - Sepsis due to Methicillin resistant Staphylococcus aureus - Other osteomyelitis, ankle and foot - Allergy status to penicillin - Other acute osteomyelitis, left ankle and foot - Chronic pain syndrome - Acquired absence of other specified parts of digestive tract - Type 2 diabetes mellitus with diabetic polyneuropathy - Other specified postprocedural states - half-way (current) use of insulin - Sepsis due to Methicillin resistant Staphylococcus aureus - Sepsis, unspecified organism - Gangrene, not elsewhere classified - Atherosclerosis of [place] arteries of extremities with gangrene, left leg - Old myocardial infarction - Type 2 diabetes mellitus with diabetic polyneuropathy - Other acute osteomyelitis, left ankle and foot - Nicotine dependence, cigarettes, uncomplicated - Chronic pain syndrome - long term care pharmacist (current) use of aspirin - Cellulitis of left lower limb - Atherosclerosis of [place] arteries of extremities with gangrene, left leg - Allergy status to penicillin - half-way (current) use of aspirin [email or web address]
[2022-03-13] MEDS ORDERED: DULOXETINE HCL30 MG PO (17:10)
--- NOTE | 2022-03-13 19:30 | NUR ---
PATIENT ARRIVED. TRANSFERED WITH LIMITED ASSIST TO THE BED. PATIENT DECLINES TO REMOVE HIS CLOTHES FROM HOME DUE TO FEELING COLD. EXPLOSIVES WORKER PLACED. VS STABLE. PATIENT REPORTS PAIN 8/10 IN HIS LEGS. IV FLUIDS CONTINUED FROM ED, SITE WNL. PATIENT IS ALERT AND ORIENTED. REQUESTING FOOD. WARM BLANKETS PROVIDED. ABRASIONS NOTED ON HIS RIGHT ARM IN ADDITION TO INJURY ON STUMP. FURTHER SKIN ASSESSMENT AND WOUND CARE IN SEPARATE NOTE.
--- NOTE | 2022-03-13 20:15 | NUR ---
PATIENT PROVIDED A SANDWICH BOX AND ICE WATER; HE ATE 100% OF THIS. LEBS DRAWN FROM IV SITE WITHOUT TOURNIQUET. SCHEDULED MEDS AND INSULIN PROVIDED PER ORDER. PATIENT DENIED ANY FURTHER NEEDS. RESTING IN BED WITH EYES CLOSED.
--- NOTE | 2022-03-13 22:00 | NUR ---
PATIENT UP TO THE BATHROOM. SBA WITH FWW. PATIENT APPEARS STEADY ON HIS FEET. PATIENT ATTEMPTED TO HAVE BM BUT ONLY VOIDED. PATIENT REPORTS VERY LARGE VOID BUT NONE WAS CAPTURED FOR MEASURE. PATIENT RETURNED TO BED. IV FLUIDS AND ABX CONTINUE PER ORDER, SITE WNL.
--- NOTE | 2022-03-14 00:45 | NUR ---
PATIENT REQUESTING SNACKS AND COFFEE WHICH WERE PROVIDED TO HIM. PATIENT RECEIVED PRN PAIN MEDS FOR 10/10 PAIN IN LEFT STUMP. WOUND CARE DONE. OPEN AREAS ON RIGHT ARM CLEANED WITH HIBACLENS AND PATTED DRY. PICS IN CHART. DUODERM APPLIED. SCAB ON RIGHT DARBY IS DRY AND SMALL WITH REDNESS AROUND THE SITE; CLEANED AND COVERED WITH ALYVEN. WOUNDS ON LEFT STUMP AND WEEPING SEROSANG FLUIDS WITH FOWL ODOR. AREA CLEANED WITH HIBECLENS AND PETROLEUM GAUZE APPLIED FOR A CONTACT BARRIER. WRAPPED WITH KERLEX AND COBAN LIGHTLY. ENCOURAGED PATIENT TO ELEVATE FOR COMFORT. PICTURES TAKEN AND PLACED IN CHART WITH VERBAL CONCENT FROM PATIENT.
--- NOTE | 2022-03-14 01:46 | NUR ---
PT CALLED, WITH SBA, FWW, PT AMBULATED TO BR, THINKING HE WAS NEEDED TO HAVE A BM. DID NOT, BUT VOIDED, BACK TO BED, NO OTHER NEEDS AT THIS TIME.
--- NOTE | 2022-03-14 04:30 | NUR ---
PATIENT RESTING IN BED. IV FLUIDS PER ORDER. PATIENT DENIES CONCERNS. VS STABLE.
--- NOTE | 2022-03-14 07:26 | NUR ---
DR. HOGAN IN TO SEE PATIENT. DRESSING TAKEN OFF AND VERBAL ORDER TO REPLACE PREVIOUSLY DRESSED WITH ADDITION OF AN ALYVEN IF POSSIBLE.
[2022-03-14] MEDS ORDERED: GABAPENTIN800 MG PO (08:42)
--- NOTE | 2022-03-14 09:30 | NUR ---
DR. HOGAN IN TO SEE PT THIS MORNING. NO NEW ORDERS RECEIVED. PT IS AWAKE IN BED W/ CALL LIGHT AT HAND. ATE BREAKFAST W/ SETUP ASSISTANCE; EXCELLENT APPETITE AND ADEQUATE FLUID INTAKE. IV PATENT W/ IVF INFUSING. VSS. PT VERBALIZES NEEDS APPROPRIATELY. PRN PAIN MEDICATION ADMINISTERED PER PT REQUEST- SEE EMAR FOR ADMINISTRATION INFORMATION. WILL CONT TO MONITOR.
--- NOTE | 2022-03-14 10:00 | NUR ---
PLEASANT MOOD. PT COMPLIANT WITH CARES, MEDICATION ADMINISTRATION AND ASSESSMENT. VSS. IV PATENT WITH IVF INFUSING ORDERED. PRN PAIN MEDICATION ADMINISTERED PER PT REQUEST ORDERED- SEE EMAR. PT IS WATCHING TV AND CONVERSING WITH STAFF. EXCELLENT APPETITE AND ADEQUATE FLUID INTAKE. VERBALIZES NEEDS APPROPRIATELY. CALL LIGHT WITHIN REACH. WILL CONT TO MONITOR.
--- NOTE | 2022-03-14 10:16 | NUR ---
PUMP ALARMING, IV FLUIDS COMPLETE. NEW BAG HUNG (SEE MAR). PT RESTING IN BED WITH EYES CLOSED, RESPIRATIONS EVEN AND UNLABORED WITH RR OF 14. BED RAILS UP. CALL LIGHT WITHIN REACH. NO ADDITONAL NEEDS AT THIS TIME.
--- NOTE | 2022-03-14 12:09 | NUR ---
VITALS AND I&OS CHARTED. PATIENT SITTING UP FOR LUNCH. CALL LIGHT IN REACH
--- NOTE | 2022-03-14 13:53 | NUR ---
PT CALL LIGHT ON. PT REQUESTS PAIN MEDICAITON FOR 10/10 PAIN IN LEFT "STUMP." PT APPEARS RELAXED, VISITING WITH STERILE SUPPLY TECHNICIAN. PAIN MEDICAITON GIVEN (SEE MAR). NO ADDITIONAL REQUSTS OR COMPLAINTS. CALL LIGHT WITHIN REACH. PTS PRIMARY RN UPDATED.
--- NOTE | 2022-03-14 13:54 | NUR ---
RECEIVED REPORT FROM LUNCHROOM MONITOR RN. PT IS LYING IN BED WITH HIS EYES CLOSED. CALL LIGHT AT HAND. VSS. WILL CONT TO MONITOR.
--- NOTE | 2022-03-14 14:14 | NUR ---
MED REC COMPLETE
--- NOTE | 2022-03-14 14:45 | NUR ---
PT ALERT, ORIENTED AND SITTNG UP IN BED WATCHING TV. PT HAS HAD RECENT LLE AMPUTATION AND IS HAVING COMPLICATIONS. PT ALSO SHARED THAT NOTHING SEEMS TO BE GOING RIGHT. WON'T GET DISABILITY FOR SEVERAL MONTHS. HH NEVER DID SHOW UP. PAIN IS AT 10. RN HARI IN TO GIVE MEDS. PT REQUESTED PRAYER, GAVE G.POST AND WILL FOLLOW
--- NOTE | 2022-03-14 15:06 | NUR ---
PT ARRIVES TO MS FLOOR VIA BED. VS STABLE, AAO. CALL LIGHT IN REACH.
--- NOTE | 2022-03-14 16:48 | NUR ---
RN IN ROOM TO ADMINISTER SCHEDULED MEDS, RESTING IN BED WATCHING TV. PT STATES PAIN IS 10/10 ON THIS STUMP - NOT YET DUE FOR PRN PAIN MEDS, PT EDUCATED ON NEXT AVAILABLE TIME. IV SITE TOLERATING ABX INFUSION WITHOUT DIFFIUCLTY. PT DENIES FURTHER NEEDS, CALL LIGHT IN REACH.
--- NOTE | 2022-03-14 17:34 | NUR ---
RN IN ROOM TO ADMINISTER SCHEDULED MEDICATIONS. PT RESTING IN BED WATCHING TV - EAGER TO CHAT. 6 UNITS INSULIN ADMINISTERED - PT EDUCATED ON NUTRITIONAL DRINKS HE STATES HIS NUTRITION AT HOME HAS BEEN POOR AND HE HAS LOST WEIGHT.
--- NOTE | 2022-03-14 18:52 | NUR ---
PRN PROVIDED FOR 10/10 PAIN. PT UP TO BATHROOM TO VOID USING FWW. DEMONSTRATES APPROPRIATE USE. BACK TO BED WITH CALL LIGHT IN REACH.
--- NOTE | 2022-03-14 20:17 | NUR ---
ON ROOM AIR, CLEAR LUNGS, ALERT AND ORIENTED, WATCHING TV. OPEN AREA R WRIST AREA, OPSITE APPLIED, SL RFA PATENT. SCABBEN OVER AREAS L ARM. OPSITE LOWER R LEG, LBKA COVERED WTIH CHLOÉ WRAP, ELEVATED. PLEASANT AND COOP. CALL LIGTH AND FLUIDS AT BEDSIDE
--- NOTE | 2022-03-14 20:38 | NUR ---
CBG 221, RECEIVED 3 UNTIS SS INSULINA ND SCHEDULED INSULIN, COOP, MED TEACHING DONE, CONT TO REINFORCE DIET RESTRICTIONS
--- NOTE | 2022-03-14 22:02 | NUR ---
awake, on room air, visiting with family, tolerating cofee and drinks, given gram crackers, LBKA elevated in pillows. no d/o pain, call light at hands reach
--- NOTE | 2022-03-14 22:53 | NUR ---
UP TO BR, VOIDED, 1PA. C/O 10/10 LBKA PAIN, MEDICATED WITH ULTRAM
--- NOTE | 2022-03-15 01:36 | NUR ---
voided large amount of urine, sample sent to lab. alert andoriented, playin games in phone. no c/o adverse reaction to abx. tolerating liquids well.
--- NOTE | 2022-03-15 05:25 | NUR ---
PT ON ROOM AIR, CLEAR LUNGS BILAT, NO COUGH, SL PATENT NO C/O ADVERSE RACTION TO IV ABX. L BKA STUMP COVERED WITH CHLOÉ WRAP, ELEVATED IN PILLOWS, HAS BEEN MEDICATED WITH ULTRAM PER PAIN, EFFECTIVE. SCABBED OVER AREAS R WRIST, R LOWER LEG AND L ARM IN DIFFERENT STAGES OF HEALING WITH OPSITES OVER. VOIDING QS, UA SENT TO LAB, NO ABNORMALS. TOLERATING LIQUIDS WELL. CBG 221 RECEIVED SS INSULI. TEACHING R/T DIABETIC DIET AND SNACKS DONE WITH PT, SEMI RECEPTIVE. CONT TO REINFORCE DIABETIC DIET CHOICES. WAS AWAKE MOST OF THIS SHIFT. ALERT AND ORIENTED. UP WITH SBA/FWW. USES CALL LIGHT AND LIKES TO DRINK LOTS OF COFFEE
--- NOTE | 2022-03-15 07:12 | NUR ---
REPORT RECEIVED FROM NIGHT RN - CARE PLAN REVIEWED.
--- NOTE | 2022-03-15 08:00 | NUR ---
RN IN ROOM TO ADMINISTER SCHEDULED MEDS AND ASSESS PT. PT SITTING UP IN BED EATING BREAKFAST UPON ENTRY. DRESSING FOUND TO BE OFF OF STUMP - REDRESSED BEFORE. LEFT SIDE OF STUMP SOFT AND SPONGE LIKE TISSUE. SEE WOUND NOTE. PT MEDICATED WITH ULTRAM FOR 10/10 PAIN. REINFORCED DM2 DIET EDUCAITON. BED LINENS CHANGED.
--- NOTE | 2022-03-15 09:20 | NUR ---
INTO PATIENT ROOM, PATIENT WATCHING TV. MELISSA SHARES UPDATE THAT HE IS NO LONGER LIVING WITH A PREVIOUS ROOMMATE WHO HE HAD DIFFICULTY WITH DURING HIS LAST ADMISSION. HE STATES THAT HIS SON IN LAW HAS MOVED IN WITH HIM TO PAY THE BILLS THE PATIENT IS WAITING FOR HIS SSI AND STATES HE IS NOT ELIGABLE FOR A STOUT ADVANCE. MELISSA STATES THAT HE HAS HAD A DIFFICULT TIME SINCE HIS LAST DISCHARGE. AT THIS CURRENT TIME PATIENT WILL BE WITHOUT A REFRIDGERATOR FOR HIS INSULIN, DOES NOT HAVE A BED FRAME, WHICH LEAVES HIS MATTRESS TO SIT ON THE FLOOR AND HAS DIFFICULTY PURCHASING TOLIETRIES AND FOOD HE HAS NO INCOME. PATIENT STATES HE HAS CALLED MULTIPLE RESOURCES IN [place]OWN AND NOT RECVD ANY HELP. PATIENT STATES HE HAS ALSO HAD DIFFICULTY WITH TRANSPORTATION. HE STATES THAT HE HAS SET UP TRANSPORT WITH [email or web address] AND THE DIVER HAS NOT SHOWN UP ON A FEW OCCASIONS. MELISSA CONTACTED [email or web address] AND THEY STATES THEY HAVE BEEN SHORT STAFF. HE STATES AT THIS TIME HE IS MOST CONCERNED ABOUT NOT HAVING A REFIDGERATOR TO STORE HIS INSULIN. MELISSA STATES HE HAS BEEN TRYING TO MANAGE HIS DIABETES BETTER SO HE DOES NOT HAVE FURTHER COMPLICATIONS WITH HIS STUMP OR OTHER FOOT. i ADVISED MELISSA THAT I WOULD MAKE SOME CALLS TO SEE IF A REFIDGERATOR IS AVAILABLE. WILL UPDATE PATIENT WHEN AVAILABLE.
--- NOTE | 2022-03-15 10:15 | NUR ---
PT NOTED TO HAVE RED RASH WITH HIVES IN INNER RIGHT ARM AT ELBOW BED ABOVE IV SITE WHEN FLUSHING IV AFTER VANCO INFUSION COMPLETE. PT STATES IT ITCHES. DIESEL ENGINE TESTER ASKED TO CONSULT, SUGGESTS MONITORING. PHARMACIST NOTIFIED AND REQUESTED CONSULT FOR POTENTIAL ALLERGY TO VANCO - SUGESTS MONITORING CURRENT SITE AND MONITORING SKIN CLOSLY FOR REACTION AT NEXT INSFUSION TIME. PT ROUNDED ON AND REACTION REAMAINS LOCALIZED AND NO MORE SEVERE.
--- NOTE | 2022-03-15 10:57 | NUR ---
RN ROUNDING ON PT TO EVALUATE RASH - RESOLVED. IN ROOM ROUNDING. PT PROVIDED LOW CARB HIGH PROTIEN ENSURE SHAKE SINCE MINIMAL BREAKFAST WAS EATEN.
--- NOTE | 2022-03-15 12:08 | NUR ---
PT GOT SHOWER. PT BACK IN BED. CALL LIGHT WITHIN REACH NO FURTHER TASKS AT THIS TIME
--- NOTE | 2022-03-15 14:45 | NUR ---
RN ROUNDING ON PT - ASLEEP IN BED, RR EVEN AND ULABORED. CALL LIGHT IN REACH.
--- NOTE | 2022-03-15 14:46 | NUR ---
RAEGAN MSG FOR BUSHRA ROMANO TO DISCUSS OBTAING A MINI REFRIDGERATOR FOR PATIENT BY DONATION IF POSSIBLE. SPOKE WITH [employer] AND PEOPLE HELPING PEOPLE, NO APPLIANCES AVAILABLE AT THIS TIME.
--- NOTE | 2022-03-15 15:33 | NUR ---
MEDICATION DUE. PT AWAKE AND RESTING IN BED. PT REPORTS HIS IV "FELL OUT WHILE I WAS SLEEPING." NEW IV STARTED BY JEANNE BUCKLEY. IV ABX STARTED. MEDICATION GIVEN. PT REPORTS 10/10 PAIN IN LEFT STUMP AT THIS TIME, SEE MAR FOR MEDICATION GIVEN. PT REPORTS HE FEELS LIKE HE HAS A LOW BLOOD SUGAR. BLOOD SUGAR ASSESSED AND FOUND TO BED 97. PT REQUESTS CRACKERS, 1 PACKET OF CRACKERS AND COFFEE PROVIDED PER PT REQUEST. NO ADDITIONAL REQUESTS OR COMPLAINTS. CALL LIGHT WITHIN REACH. PTS PRIMARY RN UPDATED.
--- NOTE | 2022-03-15 15:35 | NUR ---
pt woke up from nap. i&o and vs charted call light within reach no furhter tasks at this time.
--- NOTE | 2022-03-15 16:00 | NUR ---
SPOKE WITH BUSHRA ROMANO, SHE IS UNSURE IF THE HOSPITAL HAS OR WOULD BE WILLING TO DONATE A REFRIGERATOR TO THE PATIENT AT THIS TIME. DISCUSS THE ISSUE OF THE PATIENT BEING UNABLE TO KEEP HIS INSULIN IF NOT ABLE TO FIND SOMEWHERE TO STORE IT. ADVISED BUSHRA THAT I CONTACTED MULTIPLE LOCAL AGENCIES AND [employer] THROUGH OUT THE DAY, BUT WAS UNABLE TO FIND A REFIGERATOR. PER BUSHRA [facility] TO PROVIDE $100 IN GIFT CARDS TO PROVIDE DORM STYLE REFRIGERATOR. THIS RN TO LOCAL STORE, REFRIGERATOR OBTAIN WITH GIFT CARDS AND DELIVERED TO PATIENT.
--- NOTE | 2022-03-15 16:06 | NUR ---
RN IN ROOM TO ASSESS PT - PT SITTING UP IN BED ON PHONE. PT STATES HIS CBG WAS "LOW" EARLIER WITH COVERING RN - 99 ON CHART REVIEW. MORE CRACKERS PROVIDED PT STATES HE FEELS SHAKY. OTHERWISE ASSESMENT UNCHANGED. CALL LIGHT IN REACH
--- NOTE | 2022-03-15 17:51 | NUR ---
RN IN ROOM TO ADMINISTER SCHEDULED MEDICATIONS. PT UP IN BED EATING DINNER. DENIES NEEDS. RATES PAIN 10/10 ON PRN PAIN REASSESSMENT. IV SITE TOLERATING ABX INFUSION WITHOUT ANY DIFFICULTY.
--- NOTE | 2022-03-15 18:34 | NUR ---
WOUND NURSE CONSULT. TO BEDSIDE FOR CONSULT. PT WITH WOUND ON LEFT BKA STUMP. PT REPORTS IT IS FROM FALL ON [address]. WOUND IS RED AND SWOLLEN. SWELLING HAS DECREASED FROM ADMISSION PICTURES. WOUND IS IMPROVING. OPEN WOUNDS WITH 100% INTACT SLOUGH TISSUE. MINIMAL DRAINAGE IS PRESENT. MEASURMENTS NOT TAKEN. WOUNDE WASHED WITH SOAP AND WATER IN SHOWER. MEDIHONEY APPLIED OVER OPEN WOUNDS. ALLEVEN PLACED OVER STUMP. WITH FUTURE DRESSING CHANGES WE WILL USE NON-BOARDER ALLEVYN. SECURE WITH KERLEX AND COBAN. DRESSING SHOULD BE CHANGED DAILY.
--- NOTE | 2022-03-15 21:03 | NUR ---
PT CALLED FOR PAIN MEDICATION. OK'D WITH PRIMARY RN MEENU AND ADMINSITERED EVENING SCHEDULED MEDS AND GIVEN SNACK AFTER BLOOD SUGAR CHECK OF KYRGYZ YOGURT
--- NOTE | 2022-03-15 21:48 | NUR ---
on room air, was medicated earlier by another RN, no c/o pain at this time. visiting with family via phone. L stump elevated in pillows.
--- NOTE | 2022-03-15 22:24 | NUR ---
Dr Laughlin notified via phone for clarification of Vancomycin orders as pt stated he had an adverse reaction earlier on after ivf completed, his arm above iv site got red, painful and then little blisters come on. : I will write orders for something else" staed. Pt asymptomatic at this time, sitting edge of bed no c/o pain.
--- NOTE | 2022-03-15 23:57 | NUR ---
NO C/O ADVERSE RACTION TO 1X DOSAGE OF TYGACIL IV ABX. SL PATENT. OPENS EYES, GOES BACK TO SLEEP, NO C/O PAIN AT THIS TIME.
--- NOTE | 2022-03-16 02:33 | NUR ---
On room air, resting, eys closed, turns and repositions self in bed. L BKA stump elevated in pillows. call light and fluids at bedside
--- NOTE | 2022-03-16 03:15 | NUR ---
ASSESSMENT COMPLETE, pt CONTINUES TO REPORT TOLERABLE 3/10 PAIN, DENEIS NEED FOR PAIN AND NAUSEA MEDICATION. BOWEL TONES ACTIVE. IV SITE WNL, FLUIDS INFUSING DIRECTED. NO ACUTE CHANGES, CALL LIGHT IN IVETTE.
--- NOTE | 2022-03-16 04:50 | NUR ---
iv site wnl, fluids paused per clinical judgement to allow lab to draw am labs. fluids infusing has potassium in it and won't be done before am meeting. no further needs, carlo menon in room for vs and i&o's. call light in reach.
--- NOTE | 2022-03-16 04:54 | NUR ---
TAMARA LIGHT ANSWERED, pt NOW REQUESTING PRN PAIN MEDICATION, SEE EMAR FOR PAIN MEDICATION GIVEN.
--- NOTE | 2022-03-16 06:15 | NUR ---
PT ON ROOM AIR, HAS BEEN MEDICATED WITH ULTRAM X1 PER L STUMP PAIN, EFFECTIVE. CBG 200, RECEIVED SS INSULIN, CONT TO ENCOURAGE GOOD DIABETIC CHOICES. SL PATENT, RECEIVED 1X DOSE OF TEGACYL IV ABX, NO FURTHER C/O ADVERSE REACTION TOLERATAING DIET AND PROCEDURES. L BKA ELEVATED WITH PILLOWS, USES URINAL, VOIDING QS. PLEASANT AND COOPERATIVE. ALERT AND ORIENTED
--- NOTE | 2022-03-16 09:18 | NUR ---
Ultram 50mg po and tylenol 500mg po admin for reports left stump pain, 04/14.
--- NOTE | 2022-03-16 12:04 | NUR ---
Patient in bed resting, eyes closed, respirations even and non labored. Patient easily wakes to verbal stimuli, no distress noted. IV abx started per provider order. Patient reports he is doing well at this time. Left stump elevated at this time, cms intact.
--- NOTE | 2022-03-16 14:01 | NUR ---
Left stump dressing change done at this time. Old dressing removed, no blood noted on wound dressing, old medihoney noted to wound site. Left stump cleansed well with wound vacuum cleaner repairer until old medihoney completey removed. Left stump then cleansed well with wound vacuum cleaner repairer then allowed to dry. New medihoney and allevyn placed to stump then wrapped with kerlex then gauze for securement. Patient tolerated well. Left stump left elevated on pillow.
--- NOTE | 2022-03-16 14:46 | EKG ---
[facility] [address] [place], [place] [address] Signed Normal sinus rhythm Normal ECG When compared with ECG of 02-DEC-2021 16:53, No significant change was found Confirmed by FAROOQ PAULSON MD ([id number] on 03/16/2022 2:46:19 PM Electronically Signed By: FAROOQ PAULSON MD 03/16/22 1446 PATIENT NAME: MELISSA BENSON [place] Electrocardiogram DATE OF : 73 PHYSICIAN: FAROOQ PAULSON MD REPORT #: [id number] REPORT IS CONFIDENTIAL AND NOT TO BE RELEASED WITHOUT AUTHORIZATION
--- NOTE | 2022-03-16 17:20 | NUR ---
Ultram 50mg po and tylenol 500mg po admin for reports of 10/10 left stump pain.
--- NOTE | 2022-03-16 19:45 | NUR ---
PT RESTING, LAYING ON HIS R SIDE, TURNS AND REPOSITIONS SELF, L STUMP RESTING OVER R KNEE AREA. CALL LIGHT AND FLUIDS AT HANDS REACH
--- NOTE | 2022-03-16 21:05 | NUR ---
IN TO GET VITALS, I&Os, ACCU CHECK COMPLETE
--- NOTE | 2022-03-16 22:08 | NUR ---
abx dosage completed, SL patent. open areas over arms healing. stump LBKA elevated. pt pleasnt, coop, on room air, lungs clear, pleasant, alert andoriented. talking with family via phone. call light at hands reach
--- NOTE | 2022-03-16 23:36 | NUR ---
resting, eys closed, laying on R side, L BKA resting on his R knee, call light and fluids at bedside
--- NOTE | 2022-03-17 00:40 | NUR ---
RESTING, LAYING ON R SIDE, LBKA RESTINGON R KNEE, DRESSING CDI, NO DISTRESS, ON ROOM AIR, CALL LIGHT AND FLUIDS AT BEDSIDE
--- NOTE | 2022-03-17 04:54 | NUR ---
PT HAS SLEPT MOST OF THIS SHIFT. ON ROOM AIR, MEGHNA PATENT, DEJAN DRESSINGINTACT. WAS MEDICATED WITH 1 ULTRAM THIS SHIFT TIL NOW. WITH GOOD PAIN RELIEF. COOPERATIVE, ALERT AND ORIENTED. PT TO BE DC HOME TODAY. CONT TO TEACH GOOD DIABETIC DIET CHOICES. SEMI RECEPTIVE TO INSTRUCTIONS R/T DIET. USES CALL LIGHT
--- NOTE | 2022-03-17 07:32 | NUR ---
Patient in bed resting, eyes closed, respirations even and non labored. Patient has no notable distress. Personal supplies and call light within reach.
--- NOTE | 2022-03-17 08:51 | NUR ---
Admin Ultram 50mg po and tylenol 500mg po for reports of left stump pain.
--- NOTE | 2022-03-17 10:20 | NUR ---
Left stump dressing change done at this time per provider order. Patient tolerated well.
[2022-03-17] MEDS ORDERED: TRAMADOL HCL50 MG PO (10:34)
[2022-03-17] MEDS ORDERED: AVIDOXY100 MG PO (10:36)
[2022-03-17] MEDS ORDERED: CEFADROXIL500 MG PO (10:38)
[2022-03-17] MEDS ORDERED: LO-DOSE ASPIRIN81 MG PO (10:49)
[2022-03-17] MEDS ORDERED: LIPITOR80 MG PO (10:49)
== END 2022-03-17 11:10 | disposition home or self-care (01) | DRG 564 ==
LOC: ED 16:21 → CCU 18:36 → MS 03-14 16:00
PROVIDERS: ADMIT Internal Medicine; ATTEND Internal Medicine
DX: T87.44 Infection of amputation stump, left lower extremity (principal); A41.9 Sepsis, unspecified organism; L03.116 Cellulitis of left lower limb; F11.20 Opioid dependence, uncomplicated; Z20.822 Contact with and (suspected) exposure to COVID-19; E11.65 Type 2 diabetes mellitus with hyperglycemia; E11.40 Type 2 diabetes mellitus with diabetic neuropathy, unspecified; G89.4 Chronic pain syndrome; E11.51 Type 2 diabetes mellitus with diabetic peripheral angiopathy without gangrene; Z89.512 Acquired absence of left leg below knee; Z89.422 Acquired absence of other left toe(s); Z90.49 Acquired absence of other specified parts of digestive tract; Z90.89 Acquired absence of other organs; Z98.890 Other specified postprocedural states; Z88.0 Allergy status to penicillin; Z79.4 Long term (current) use of insulin; Z79.899 Other long term (current) drug therapy; Y83.5 Amputation of limb(s) as the cause of abnormal reaction of the patient, or of later complication, without mention of misadventure at the time of the procedure
CPT/HCPCS: 36415; 71045; 73560; 80048; 80053; 80061; 80202; 81001; 83036; 83605; 85025; 86140; 87502; 93005; 93010; A9270; C9803; J0696; J1650; J1815; J3243; J3370; J7060; J7121; U0003

== ENCOUNTER 2022-04-26 17:37 | Inpatient (IN) | payer OTHER ==
[~2022-04-26] VITALS: Ht 180.3 cm; Wt 65.3 kg
[~2022-04-26 17:37] MED LIST changes: +AVIDOXY100 MG PO; +CEFADROXIL500 MG PO; +DULOXETINE HCL30 MG PO; +GABAPENTIN800 MG PO; +LIPITOR80 MG PO; +LO-DOSE ASPIRIN81 MG PO
--- OUTSIDE RECORDS SUMMARY | 2022-04-26 17:40 | XMS ---
PreManage Notification: MELISSA BENSON Security Party Host/Hostess Events No recent Security Events currently on file [facility] Marvin Kramer Community Health Worker 10/19/2019-Current PHONE: [phone] GENNARO WILLIAMSON Physician Oil Producer Current PHONE: [phone] Courtney has no Care Guidelines for this patient. Care History Medical/Surgical 11/27/2021 [facility] - [facility] RECEIVED CASE MANAGEMENT CONSULT TO HELP PATIENT FIND A PCP, INSURANCE AND FOLLOW UP WITH WOUND CARE . -PATIENT HAS DMAP THAT IS NOW ACTIVE. -CHW CALLED PATIENT 2X AND LEFT A VOICEMAIL. WAITING ON A RETURN CALL. E.D. VISIT COUNT (12 MO.) [address] [facility] TOTAL 5 NOTE: Visits indicate total known visits. ED/UCC VISIT TRACKING (12 MO.) 04/26/2022 17:38 [facility] TYPE: Emergency COMPLAINT: - RT LEG PAIN 03/13/2022 16:21 [facility] TYPE: Emergency COMPLAINT: - LT LEG SWELLING 12/02/2021 11:37 [facility] TYPE: Emergency COMPLAINT: - L LEG AND FOOT PAIN 11/21/2021 15:41 [facility] TYPE: Emergency COMPLAINT: - WOUND CHECK 11/20/2021 08:20 [facility] TYPE: Emergency COMPLAINT: - BODY ACHES, HEADACHE, NAUSEA, SWEATS DIAGNOSES: - Cellulitis of left lower limb - Type 2 diabetes mellitus with hyperglycemia - Type 2 diabetes mellitus with foot ulcer - snf (current) use of insulin - Non-pressure chronic ulcer of other part of left foot with unspecified severity - Fever, unspecified - Allergy status to penicillin - Contact with and (suspected) exposure to COVID-19 - Old myocardial infarction INPATIENT VISIT TRACKING (12 MO.) 03/13/2022 18:[address] [facility] TYPE: Medical Surgical COMPLAINT: - SESPIS DIAGNOSES: - Allergy status to penicillin - Opioid dependence, uncomplicated - Amputation of limb(s) as the cause of abnormal reaction of the patient, or of later complication, without mention of misadventure at the time of the procedure - Other specified postprocedural states - Cellulitis of left lower limb - Contact with and (suspected) exposure to COVID-19 - Other senior care (current) drug therapy - Acquired absence of other organs - Chronic pain syndrome - Type 2 diabetes mellitus with diabetic peripheral angiopathy without gangrene - Acquired absence of other left toe(s) - Opioid dependence, uncomplicated - Chronic pain syndrome - Cellulitis of left lower limb - Type 2 diabetes mellitus with hyperglycemia - Contact with and (suspected) exposure to COVID-19 - snf (current) use of insulin - Infection of amputation stump, left lower extremity - Type 2 diabetes mellitus with diabetic neuropathy, unspecified - Type 2 diabetes mellitus with diabetic neuropathy, unspecified - Acquired absence of other specified parts of digestive tract - Other remote computer terminal operator (current) drug therapy - Acquired absence of other left toe(s) - Acquired absence of left leg below knee - Other specified postprocedural states - Type 2 diabetes mellitus with diabetic peripheral angiopathy without gangrene - Acquired absence of left leg below knee - Sepsis, unspecified organism - Acquired absence of other organs - Amputation of limb(s) as the cause of abnormal reaction of the patient, or of later complication, without mention of misadventure at the time of the procedure - Infection of amputation stump, left lower extremity - Type 2 diabetes mellitus with hyperglycemia - Allergy status to penicillin - Acquired absence of other specified parts of digestive tract - 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 TYPE: Medical Surgical COMPLAINT: - SEPSIS DUE TO CELLULITIS,DIABETIC FOOT WOUND,GANGR DIAGNOSES: - snf (current) use of insulin - Other senior care (current) drug therapy - Type 2 diabetes mellitus with diabetic peripheral angiopathy with gangrene - Sepsis due to streptococcus, group B - Other specified postprocedural states - Atherosclerotic heart disease of [place] coronary artery without angina pectoris - Cellulitis of left lower limb - Sepsis due to streptococcus, group B - Old myocardial infarction - Acquired absence of other specified parts of digestive tract - Atherosclerotic heart disease of [place] coronary artery without angina pectoris - Type 2 diabetes mellitus with diabetic peripheral angiopathy with gangrene - Other remote computer terminal operator (current) drug therapy - Nicotine dependence, cigarettes, uncomplicated - Sepsis due to Methicillin resistant Staphylococcus aureus - Other osteomyelitis, ankle and foot - Allergy status to penicillin - Other acute osteomyelitis, left ankle and foot - Chronic pain syndrome - Acquired absence of other specified parts of digestive tract - Type 2 diabetes mellitus with diabetic polyneuropathy - Other specified postprocedural states - snf (current) use of insulin - Sepsis due to Methicillin resistant Staphylococcus aureus - Sepsis, unspecified organism - Gangrene, not elsewhere classified - Atherosclerosis of [place] arteries of extremities with gangrene, left leg - Old myocardial infarction - Type 2 diabetes mellitus with diabetic polyneuropathy - Other acute osteomyelitis, left ankle and foot - Nicotine dependence, cigarettes, uncomplicated - Chronic pain syndrome - snf (current) use of aspirin - Cellulitis of left lower limb - Atherosclerosis of [place] arteries of extremities with gangrene, left leg - Allergy status to penicillin - snf (current) use of aspirin [email or web address]
[2022-04-26] MEDS ORDERED: JARDIANCE10 MG PO (18:05)
--- NOTE | 2022-04-26 22:15 | NUR ---
PT ARRIVED VIA STRTCHER FROM ER, PT UP AND AMBULATED WITH FWW STEADY ON HIS RIGHT LEG, VOIDED IN BATHROOM, THEN BACK TO BED, PT STOPPED AT BELONGINGS BAG AND PLACED SOMETHING IN HIS SHORTS POCKET, THIS RN ASKED WHAT THAT WAS FOR CONCERN IF HE HAS ANY HOME MEDICATIONS STAFF AND MD NEEDS TO KNOW ABOUT, PT SAID HE PLACED HIS CELL PHONE AND EAR PHONES IN HIS POCKET AND PULLED THEM OUT TO SHOW. HIS IS RESTING IN BED, HE REPORTS HE FEELS COLD, HE HAS A TEMP OF 100.7 F AT THIS TIME, NORCO ADMINISTERED FOR PAIN 06/15 AT HIS RLE. DISCUSSED WITH PT THAT THE TYLENOL SHOULD HELP HIM FEEL BETTER SOON.
--- NOTE | 2022-04-26 23:58 | NUR ---
PT HAS AN EXTENSIVE WOUND ON HIS RIGHT DARBY. RLE IS ELEVATED ON 2 PILLOWS. WOUND WAS CLEASNED WITH WOUND CLEANSE AND PATTED DRY, PICTURES WERE TAKEN AND FILED IN PT CHART. PICTURES OF LEFT BKA STUMP WITH SCAB PRESENT WERE ALSO TAKEN AND FILED IN CHART. BEDDING WAS TENTED OVER THE BOTTOM OF THE BED.
--- NOTE | 2022-04-27 00:22 | NUR ---
PT APPEARS TO BE ASLEEP DURING CHECK . DID NOT AWAKEN PT. RLE ELEVATED ON 2 PILLOWS. CALL LIGHT IN REACH.
--- NOTE | 2022-04-27 01:59 | NUR ---
PT ASSISTED UP TO THE TOILET, FWW, BACK TO BED, VS DONE, FRESH ICE WATER GIVEN
--- NOTE | 2022-04-27 05:55 | NUR ---
IN TO GET VITALS AND GROUP CARES WITH LAB, PER PTs REQUEST NOT TO BE WOKEN EARLY, NO FURTHER NEEDS AT THIS TIME
--- NOTE | 2022-04-27 06:32 | NUR ---
PT HAS SLEPT WELL SINCE ADMIT. HE HAD PAIN ON ADMIT AND WAS MEDICATED WITH 1 NORCO. HIS RLE HAS BEEN CLEANED AND ELEVATED ON 2 PILLOWS. HE HAS VOIDED. NO BM. VSS
--- NOTE | 2022-04-27 07:03 | EKG ---
[facility] [address] [facility] [place], [place] [address] Signed Sinus tachycardia Otherwise normal ECG When compared with ECG of 13-MAR-2022 17:46, No significant change was found Confirmed by CHAZ HOLCOMB MD ([id number]) on 04/27/2022 7:03:45 AM Electronically Signed By: HCAZ HOLCOMB MD 04/27/22 0703 PATIENT NAME: MELISSA BENSON [place] Electrocardiogram DATE OF : 73 PHYSICIAN: CHAZ HOLCOMB MD REPORT #: [id number] REPORT IS CONFIDENTIAL AND NOT TO BE RELEASED WITHOUT AUTHORIZATION
--- NOTE | 2022-04-27 07:27 | NUR ---
REPORT RECEIVED FROM JEANNE WARE. PT RESTING IN BED WITH EYES CLOSED, RESPIRATIONS EVEN AND UNLABORED. PUMP ALARMING, IV FLUIDS COMPLETE. NEW IV FLUIDS BAG HUNG. BED RAILS UP. CALL LIGHT WITHIN REACH. PT ALLOWED TO REST.
--- NOTE | 2022-04-27 08:05 | NUR ---
PT IN BED, COMPLAINTS OF PAIN. NURSE WAS IN ROOM AT THIS TIME. REFUSED TO GET OUT OF BED FOR MEAL. WASH CLOTH WAS GIVIN. CALL LIGHT IN REACH.
--- NOTE | 2022-04-27 08:31 | NUR ---
MORNING ASSESSMENT AND MEDICATION DUE. PT UP TO RESTROOM WITH STAND BY ASSIST AND FWW. RIGHT LEG LEAKING MODERATE AMOUNTS OF SEROUSANGUINOUS FLUID. DRAINGE NOTED OVER BED AND FLOOR. ROOM CLEANED. PICTURES TAKEN OF WOUNDS (SEE PAPER CHART). RIGHT LEG WOUND CLEANSED WITH 40ML NORMAL SALINE AND WOUND CLEANSER. ADAPTIC, NONADHERANT GAUZE AND KERLIX APPLIED TO ABSORPE DRAINGE AND ALLOW FOR COMFORT WHILE WAITING FOR WOUND CARE NURSE TO ARRIVE. OTHER WOUNDS LEFT OPEN TO AIR. WOUNDS NOTED ARE FOLLOWS: RIGHT DARBY: 9CM X15CM AREA OF EXCORIATED SKIN, DRAINING SEROUSANGUINOUS FLUID, EDGES OF WOUND MACERATED WITH ERYTHEMA NOTED. PHOTOGRAPHS TAKEN. ADAPTIC, NONADHERANT GAUZE AND KERLIX APPLIED TO HELP WITH WOUND DRAINAGE CONTROL. BOTTOM OF LEFT STUMP: 5CM X3CM WOUND NOTED TO LEFT STUMP WELL AN 1CM X 1CM CIRCUMFRENTAL WOUND TO OUTER LEFT STUMP. BOTH DRY AND CRUSTY AND OPEN TO AIR. NO DRAINGE NOTED. NO DRESSING IN PLACE. SEE PHOTOGRAPHS. CLEANED WITH NORMAL SALINE. NO ERYTHEMA NOTED AROUND WOUND. UPPER RIGHT LECM X 2CM CIRCUMFRENTIAL WOUND WITH STABLE BLACK ESCHAR LIKE A SCAB. ERYTHEM NOTED AND OUTLINED AROUND WOUND. PT REPORTS THIS WOUND WAS "FROM SOME HOT OIL THAT SPILLED." RIGHT FORARM: 2CM X0.5CM SKIN TEAR NOTED TO RIGHT FORARM. CLEANSED WITH NS. NO DRESSING IN PLACE. SEE PHOTOGRAPHS. RIGHT WRIST: 1CM X 0.5CM SKIN TEAR NOTED TO RIGHT WRIST. CLEANSED WTIH NS. NO DRESSING IN PLACE. SEE PHOTOGRAPHS. BOTTOM OF RIGHT FOOT/HEEL: 1CM SCAB IN PLACE PT REPORTS 9/10 BURNING REDENED AREAS AROUND WOUNDS OUTLINED WITH SKIN MARKER. PAIN IN RIGHT LEG WOUND, SEE MAR FOR MEDICATION GIVEN. NUMBNESS AND TINGLING CONTINUE TO RIGHT LEG/FOOT. STRONG PLANTAR AND DORSI FLEXTION NOTED. PT ABLE TO AMBULATE WITH FWW AND STAND BY ASSIST. LUNG SOUNDS CLEAR. PT TOLERATING ROOM AIR. HEART TONES REGULAR. PT REPORTS POOR APPITITE REQUESTING ONLY GRAPES FOR BREAKFAST. PT VOIDING QUANITTY SUFFICIENT AMOUNTS OF CLEAR YELLOW URINE. PT RESTING ON RIGHT SIDE WITH EYES CLOSED AND HEADPHONES IN PLACE. RIGHT LEG ELEVATED ON PILLOWS. NO ADDITIONAL NEEDS AT THIS TIME. CALL LIGHT WITHIN REACH. BED RAILS UP.
--- NOTE | 2022-04-27 08:50 | NUR ---
PATIENT REFUSED BREAKFAST TRAY DUE TO NAUSEA. CNAS ORDERED GRAPES PER REQUEST FROM PATIENT. NO OTHER NEEDS AT THIS TIME. CALL LIGHT IN REACH.
--- NOTE | 2022-04-27 09:22 | NUR ---
THIS RN TO ROOM TO CHECK ON PT. PT CONTINUES RESTING IN BED ON BACK WITH HEAD OF BED ELEVATED TO 20DEGREES. RESPIRATIONS EVEN AND UNLABORED. PT ALLOWED TO REST. CALL LIGHT WITHIN REACH. BED RAILS UP.
--- NOTE | 2022-04-27 09:48 | NUR ---
PATIENT IN BED, NO COMPLAINTS OF PAIN, AND NO THER NEEDS AT THIS TIME. CALL LIGHT IN REACH.
--- NOTE | 2022-04-27 10:19 | NUR ---
THIS RN TO ROOM TO CHECK ON PT. PT RESTING IN BED ON RIGHT SIDE WITH EYES CLOSED. RESPIRATIONS EVEN AND UNLABORED, RR OF 18. BED RAILS UP. CALL LIGHT WITHIN REACH. PT ALLOWED TO REST.
--- NOTE | 2022-04-27 10:44 | NUR ---
PT CALL LIGHT ON. PT REQUESTS ASSISTANCE UP TO USE URINAL. STAND BY ASSIST UP TO STAND WITH FWW. PT VOIDS 600ML CLEAR YELLOW URINE. PT PUTS SELF BACK TO BED. PT REQUEST ADDITONAL PAIN MEDICATION FOR ONGOING 9/10 BURNING RIGHT LEG PAIN. SEE MAR FOR MEDICAITON GIVEN. PT DENIES ADDITIONAL REQUESTS OR COMPLAINTS. CALL LIGHT WITHIN REACH. BED RAILS UP.
--- NOTE | 2022-04-27 12:24 | NUR ---
PATIENT LAYING IN BED WITH EAR BUDS ON. PT DID NOT WANT TO GET UP INTO CHAIR FOR MEAL. ALSO REQUESTED JUST GRAPES AND A DIET SODA FOR MEAL DUE TO NAUSEA. CALL LIGHT WITHIN REACH.
--- NOTE | 2022-04-27 12:46 | NUR ---
INSULIN DUE. THIS RN TO ROOM. PT RESTING WITH EYES CLOSED. RESPRIATIONS EVEN AND UNLABORED. PT AWAKENS TO VOICE AND LIGHT TOUCH. INSULIN GIVE. WOUND CARE NURSE, AMI, TO BEDSIDE FOR WOUND CARE. PT REPORTS HE WOULD LIKE TO CONTINUE SLEEPING BUT IS OK WITH AMI PERFORMING WOUND CARE WHILE HE RESTS. PT DRIFTS BACK TO SLEEP. PT DOES NOT RATE PAIN AT THIS TIME PERFERING TO SLEEP. NO ADDITIONAL REQUESTS OR COMPLAINTS. CALL LIGHT WITHIN REACH. BED RAILS UP. JEANNE MUELLER, AT BEDSIDE.
--- NOTE | 2022-04-27 13:40 | NUR ---
THIS RN TO ROOM TO CHECK ON PT. PT RESTING SOUND ALSEEP WITH EYES CLOSED, RESPRAITIONS EVEN AND UNLABORED. AMI, WOUND RN FINISHED WORKING WITH PT. NEW DRESSINGS C/D/I. AMI STATES SHE WILL PLACE DRESSING CHANGE ORDERS BUT DRESSINGS CAN REMAIN IN PLACE FOR UP TO 7 DAYS LONG THEY ARE NOT WEEPING. PT ALLOWED TO REST. NAP TIME SIGN PLACED.
--- NOTE | 2022-04-27 13:43 | NUR ---
PT LYING IN BED LISTENING TO MUSIC. NO NEEDS OR WANTS AT THIS TIME. CALL LIGHT WITHIN REACH.
--- NOTE | 2022-04-27 14:37 | NUR ---
THIS RN TO ROOM TO CHECK ON PT. PT CONTINUES RESTING WITH EYES CLOSED. RR 18 WITH RESPRIATIONS EVEN AND UNLABORED. IV FLUID BAG EMPTY, NEW BAG HUNG. PT ALLOWED TO REST. CALL LIGHT WITHIN REACH. BED RAILS UP.
[2022-04-27] MEDS ORDERED: TRAMADOL HCL50 MG PO (15:01)
--- NOTE | 2022-04-27 15:24 | NUR ---
PT CALL LIGHT ON. PT AWAKE AND REPORTS HE WOULD LIKE PAIN MEDICATION FOR 9/10 PAIN IN LEFT LEG AND RIGHT STUMP. PT REPORTS CONSTANT "BURNING PAIN." SEE MAR FOR MEDICATION GIVEN. PT DENIES NAUSA. PT ALERT AND OREINTED TO ALL. PT REPORTS ONGOING NUBMNESS AND TINGLING IN RIGHT LEG/FOOT STATING "SOMETIMES I CUT MYSELF AND I CAN'T FEEL IT AT ALL." STRENGTH WNL. PT CONTINUES TO BE ABLE TO STAND ON RIGHT LEG TO VOID IN URINAL WITH ASSISTANCE FROM FWW. LUNG SOUNDS CLEAR. HEART TONES REGULAR. MINIMAL EDMA NOTED TO RIGHT LEG/FOOT. ALGINATE AND MEDAHONEY WITH OPSITE DRESSING TO LEFT DARBY REMAINS IN PLACE. ~70% SATURATED WITH SEROUSANGUINOUS DRAINAGE. NOTED THAT DRESSING WILL ABSORBE FLUID AND CAN BE LEFT IN PLACE IF NOT LEAKING, NO LEAKING NOTED. DRESSING LEFT IN PLACE. ALLEVYN TO LEFT STUMP REMAINS C/D/I WITH NO DRAINAGE NOTED. OTHER WOUNDS UNCHANGED AT THIS TIME. EXTENSIVE EDUCATION DONE WITH PT REGARDING INFECTION, WOUNDS, SEPSIS, AND TREATEMENT PLAN (GREATER THAN 30 MINUTES). PT STATES HIS QUESTIONS HAVE BEEN ANSWERED. NO ADDITIONAL REQUESTS OR COMPLAINTS. CALL LIGHT WITHIN REACH. BED RAILS UP.
--- NOTE | 2022-04-27 16:23 | NUR ---
THIS RN TO ROOM TO CHECK ON PT. PT RESTING WITH EYES CLOSED, RESPIRATIONS EVEN AND UNLABORED. BED RAILS UP. CALL LIGHT WITHIN REACH. PT ALLOWED TO REST.
--- NOTE | 2022-04-27 17:09 | NUR ---
THIS RN TO ROOM TO CHECK ON PT. PT HAS SENT DINNER BACK. PT REQUESTS A SANDWICH. ORDER PLACED. NO INSULIN NEEDED. PT AWAKE AND OREINTED. NO ADDITONAL REQUESTS OR COMPLAINTS. CALL LIGHT WITHIN REACH. BED RAILS UP.
--- NOTE | 2022-04-27 17:35 | NUR ---
PT HERE FOR CELLULITIS OF LEFT STUMP AND RIGHT DARBY. PT UP WITH 1 PERSON ASSIST AND FWW TO VOID AND AMBLUATE IN ROOM. PT TOELRATING 60G CARB DIET WITH MINIMAL APPITITE. BLOOD SUGAR CHECKS WITH MEALS WITH SLIDING SCALE INSULIN GIVEN. WOUND NURSE CONSULATATION THIS SHIFT WITH NEW DRESSINGS PLACED. NEW PHOTOGRAPHS OF WOUNDS TAKEN. NEW DRESSING ORDERS PLACED. BANDAGE TO LEFT DARBY ~70% SATURATED THIS AFTERNOON, NO LEAKING NOTED. PRN PAIN MEDICATON GIVEN FOR 9/10 PAIN THROUGHOUT SHIFT, HYDROXAZINE ORDERED AND GIVEN. PT AFEBRIA SO FAR THIS SHIFT. PT VOIDING QUANTITY SUFFICIENT. PT USES CALL LGHT AND MAKES NEEDS KNOWN.
--- NOTE | 2022-04-27 18:21 | NUR ---
PATIENT IN BED LISTENING TO MUSIC BY CHOICE. NO OTHER NEEDS AT THIS TIME. VITALS AND I/O'S COMPLETED. CALL LIGHT WITHIN REACH.
--- NOTE | 2022-04-27 18:48 | NUR ---
THIS RN TO ROOM TO CHECK ON PT. PT RESTINGIN BED VISITING WITH SON-IN-LAW, WILLY, WILLY FOUND SMOKING IN PTS ROOM. EDUCATION DONE. WILLY ASKED TO REMOVE SMOKING MATERIALS FROM HOSPITAL PROPERTY. WILLY VERBALIES UNDERSTANDING. PT REPORTS 9/10 BURNING PAIN IN RIGHT LEG, SEE MAR FOR MEDICATION GIVEN. COFFEE PROVIDED PER PT REQUEST. NO ADDITIONAL REQUESTS OR COMPLAINTS. CALL LIGHT WITHIN REACH. BED RAILS UP.
--- NOTE | 2022-04-27 19:15 | NUR ---
BEDSIDE REPORT FROM HARI ANGEL, PT RESTING IN BED, LOOKED AT NEW DRESSINGS, PT'S SON WILLY IS AT BEDSIDE. PT EDUCATION TODAY AHS BEEN EXTENSIVE WITH HARI ANGEL PER REPORT. PT HAS NO REQUESTS AT THIS TIME.
--- NOTE | 2022-04-27 21:13 | NUR ---
PT RESTING IN BED WITH EAR PHONES IN, HE IS ALERT TO RN IN ROOM, HE RPEORTS PAIN 9/10 ADMINISTERED 1 TAB NORCO PRN AT THIS TIME. HE REQUESTED BLANKETS BE REARRANGED AND THIS IS DONE. NO OTHER REQUESTS AT THIS TIME, ASSESSMENT COMPLETE, NO NEW CONCERNS AT THIS TIME.
--- NOTE | 2022-04-27 22:22 | NUR ---
PT CALLED TO USE THE BATHROOM, THIS RN INTO PT ROOM TO ASSIST WITH IVF AND TO MOVE FWW TO BEDSIDE. PT UP INDEPENDENT TO BATHROOM WITH SUPERVISED ASSIST STEADY MOVEMENTS. NO VERBALIZED COMPLAINTS, HE BACK TO BED, NO NEW CONCERNS AT THIS TIME
--- NOTE | 2022-04-28 03:34 | NUR ---
PT RESTING QUIETLY IN BED EYES CLOSED RR REGULAR 16 BPM. NO DISTRESS NOTED.
--- NOTE | 2022-04-28 05:04 | NUR ---
PT HAS HAD PAIN MEDICATIONS ONCE THIS SHIFT THUS FAR. HE HAS SLEPT WELL OVER SHIFT. DRESSING INTACT, AFEBRILE, NO NEW CONCERNS.
--- NOTE | 2022-04-28 05:30 | NUR ---
ANSPHIL CALL LIGHT PATIENT INSISTING HIS NURSE COME IN. APPROACHED ROOM AND MANAGER PROCESS COMES OUT SAYING "HE IS MAD AT ME" WENT IN TO INFORM PT THAT HIS NURSE WAS OCCUPIED. HE SAYS "THAT'S FINE BUT HERMELINDO YOU CAN HELP ME" PT EGINS TO RANT ABOUT "BEING WOKE UP RUDELY WHILE MY HEADPHONES ARE IN, EVERYBODY HERE KNOWS NOT TO WAKE ME UP LOUDLY WHILE I HAVE MY HEADPHONES IN, I'VE BEEN HERE THREE TIMES FOR THIS AND THEY ALWAYS KNOW" EXPLAINED TO PT THAT THE MANAGER PROCESS HAS A JOB TO DO AND SHE NEEDS TO DRAW HIS BLOOD FOR MORNING LABS AND EXPLAINED THAT THERE ARE MULTIPLE STAFF MEMBERS AND CHANGE ON A DAILY BASIS AND THAT THIS RN WAS NOT EVEN AWARE OF HIS "REQUEST" AND THE LAB STAFF AND THE NURSES ARE JUGGLING MULTIPLE PATIENTS IN THE MORNING AND IT IS A BUSY TIME.
--- NOTE | 2022-04-28 05:48 | NUR ---
PT UPSET WITH LAB THIS AM FOR WAKING HIM UP WHILE HE WAS SLEEPING, LAB HAD TO SPEAK LOUDLY TO WAKE HE HAD HIS EAR PHONES IN. SIGNS PLACED ON PT DOOR TO CHECK IN WITH RN BEFORE ENTERING TO PROVIDE PT CARE.
--- NOTE | 2022-04-28 07:10 | NUR ---
REPORT RECEIVED FROM JEANNE MORFIN. PT RESTING IN BED ON RIGHT SIDE WITH EYES CLOSED AND HEADPHONES IN PLACE. RESPIRATIONS EVEN AND UNLABORED. HEAD OF BED ELEVATED TO 15 DEGREES. BED RAILS UP. CALL LIGHT WITHIN REACH. NEW IV FLUID BAG HUNG BY JEANNE MORFIN. PT ALLOWED TO REST.
--- NOTE | 2022-04-28 08:08 | NUR ---
MORNING ASSESSMENT AND MEDICATION DUE. PT CALL LIGHT ON. PT REPORTS 9/10 PAIN IN RIGHT LEG. PT UPSET ABOUT DRESSING THAT IS IN PLACE. DRESSING INTACT BUT 100% SATURATED WITH SEROUS ANGUINOUS FLUID. NO LEAKING NOTED. PT REQUESTS DRESSING BE CHANGED. WOUND BED MACERATED WITH WHITE SLOUGH NOTED (SEE PHOTOGRAPHS). NEW OPSITE, MAXORB AND MEDIHONEY APPLIED. PT TOLERATED DRESSING CHANGE WITH ONGOING REPORTS OF 9/10 PAIN. PT ALSO REQUESTS ALLEVYN TO LEFT STUMP BE CHANGED. BANDAGES REMOVED. DRESSINGS CHANGED PER ORDER. NO CHANGE TO WOUNDS. NEW PHOTOGRAPHS TAKE (SEE PAPER CHARTING). OTHER WOUNDS REMAIN UNCHANGED. HEART TONES REGULAR. LUNG SOUNDS CLEAR. PT ALERT AND OREINTED TO ALL. NUBNESS AND TINGLING REMAIN TO RLE, UNCHANGED. MEDICATION GIVE. PT DECLINES BREAKFAST REPORTING HE CONTINUES TO HAVE A POOR APPITITE. LUNCH ORDER PLACED PER PT PREFERENCE. PT DECLINES GABAPENTIN STATING "IT DOESN'T WORK" EDUCATION DONE WITH PT AND PT CONTINUES TO DECLINE, MEDICATION HELD. COFFEE PROVIDED. PT DENIES ADDITIONAL REQUESTS OR COMPLAINTS. CALL LIGHT WITHIN REACH. BED RAILS UP.
--- NOTE | 2022-04-28 08:20 | NUR ---
PATIENT IN BED, DOES NOT WANT TO GET UP IN CHAIR. COMPLAINTS OF PAIN AND "NOT FEELING GOOD". DOES WANT BEDBATH LATER ON IN AFTERNOON. NO OTHER NEEDS AT THIS TIME. CALL LIGHT WITHIN REACH.
--- NOTE | 2022-04-28 10:01 | NUR ---
THIS RN TO ROOM TO CHECK ON PT. PT RESTING ON LEFT SIDE WITH EYES CLOSED. RESPIRATIONS EVEN AND UNLABORED. CALL LIGHT WITHIN REACH. BED RAILS UP. PT ALLOWED TO REST.
--- NOTE | 2022-04-28 10:07 | NUR ---
PATIENT IN BED RESTING, COMPLAINTS OF BEING HOT. VITALS AND I/O'S COMPLETED. NO OTHER NEEDS AT THIS TIME. NURSE NOTIFIED. CALL LIGHT WITHIN REACH.
--- NOTE | 2022-04-28 10:44 | NUR ---
THIS RN TO ROOM TO CHECK ON PT. PT CONTINUES RESTING WITH EYES CLOSED, RESPIRATIONS EVEN AND UNLABORED. BED RAILS UP. CALL LIGHT WITHIN REACH. PT ALLOWED TO REST.
--- NOTE | 2022-04-28 11:26 | NUR ---
PT CALL LIGHT ON. PT STATES HE HAS VOIDED AND WOULD LIKE A PAIN PILL. THIS RN TO ROOM. PT HAS VOIDED 800ML CLEAR YELLOW URINE INTO URINAL. PT REPORTS 9/10 BURNING PAIN IN LEFT LEG, SEE MAR FOR MEDICAITON GIVEN. BLOOD SUGAR WITHIN RANGE, NO INSULIN NEEDED. PT REPORTS HE CONTINUES TO HAVE HOT AND COLD FLASHES, TEMPERATURE WNL. PT DENIES ADDITIONAL REQUESTS OR COMPLAINTS. CALL LIGHT WITHIN REACH. BED RAILS UP.
--- NOTE | 2022-04-28 12:39 | NUR ---
LUNCH TRAY DELIVERED TO PT. PT RESTING ON LEFT SIDE WITH EYES CLOSED. RESPIRATIONS EVEN AND UNLABORED. PT ALLOWED TO REST. CALL LIGHT WITHIN REACH. BED RAILS UP. LUNCH AT BEDSIDE WITH BELONGINGS WITHIN REACH.
--- NOTE | 2022-04-28 13:30 | NUR ---
PATIENT LYING BED. COMPLAINTS OF SORENESS ON LEGS, NURSE IN ROOM FOR EXAMINATION. VITALS AND I/O'S COMPLETED. CALL LIGHT WITHIN REACH.
--- NOTE | 2022-04-28 13:42 | NUR ---
AFTERNOON ASSESSMENT DUE, PT CALL LIGHT ON. PT REPORTS 9/10 PAIN AND REQUESTS PAIN MEDICAITON. IT RISK AND ASSURANCE SENIOR MANAGER REPORTS PT HAD TO BE AWOKEN FOR VITAL SIGNS. PT REPORTS FEELING "LIKE CRAP" AND "REALLY TIRED." PT OREINTED TO ALL BUT DOES APPEAR DROWSY. PT REPORTS 9/10 PAIN IN RIGHT LOWER LEG, SEE MAR FOR MEDICATION GIVEN. PT DENIES NAUSEA. NEUROPATHY UNCHANGED. LUNG SOUNDS REMAIN CLEAR. HEART TONES REGULAR. ABODMEN REMAINS SOFT WITH ACTIVE BOWEL TONES. PT REPORTS HE HAD A BOWEL MOVEMENT LAST NIGHT. PT AT ~75% OF LUNCH. RIGHT DARBY WOUND DRESSING NOW ~70% SATURATIONED WITH SEROUS ANGUINOUS FLUID. NO BUBBLING OR LEAKING OF DRESSING NOTED. REDNESS WITHIN MARKED LINES. DRESSING TO LEFT STUMP C/D/I AND REDNESS IMPROVING, NOW WELL WITHIN MARKED LINES. WOUND TO UPPER RIGHT LEG C/D/I WITH REDNESS WELL WITHIN MARKED LINES. OTHER WOUNDS UNCHANGED. PT DRIFTS BACK TO SLEEP WHILE THIS RN IS CHARTING, RESPIRATIONS EVEN AND UNLABORED. NO ADDITIONAL REQUESTS OR COMPLAINTS. PT ALLOWED TO REST. CALL LIGHT WITHIN REACH. BED RAILS UP.
--- NOTE | 2022-04-28 14:40 | NUR ---
THIS RN TO ROOM TO CHECK ON PT. PT CONTINUES RESTING WITH EYES CLOSED ON RIGHT SIDE. RESPIRATIONS EVEN AND UNLABORED.LEGS ELEVATED ON PILLOWS. BED RAILS UP. CALL LIGHT WITHIN REACH. PT ALLOWED TO REST.
--- NOTE | 2022-04-28 15:33 | NUR ---
THIS RN TO ROOM TO CHECK ON PT. IV PUMP ALARMING, IV FLUIDS COMPLETE. NEW BAG HUNG. PT RESTING ON LEFT SIDE WITH EYES CLOSED. RR 18, EVEN AND UNLABORED. PT ALLOWED TO REST. CALL LIGHT WITHIN REACH. BED RAILS UP.
--- NOTE | 2022-04-28 16:17 | NUR ---
THIS RN TO ROOM WITH DR. HOLCOMB FOR ROUNDS. PT DISCUSSING PLAN OF CARE AND VERBALIZES UNDERSTANDING BUT IS FREQUENTLY REPEATING SELF AND QUESTIONS, PT DOES NOT REPEAT BACK INFORMATION HE HAS BEEN GIVEN. PT CONTINUES TO BE AGITATED STATING HE WANTS ALL THE PAIN GONE AND WANTS SENSTION TO HIS RIGHT LEG TO RETURN. PLAN OF CARE DISCUSSED WITH PT AND PT VERBALIZES UNDERSTANDING OF PLAN OF CARE AND SATES HIS QUESTIONS HAVE BEEN ANSWERED. PT GIVING CONFILICTING INFORMATION ABOUT MEDICAITONS HE TAKES, GOING TO FOLLOW UP APPOINTMENTS, AND CAREING FOR HIS WOUNDS. GREATER THAN 30 MINUTES SPENT WITH PT DOING EDUCATION AND THERAPUTIC COMMUNICATION. NO ADDIITONAL REQUESTS OR COMPLAINTS AT THIS TIME. CALL LIGHT WITHIN REACH. BED RAILS UP.
--- NOTE | 2022-04-28 17:08 | NUR ---
MEDICATION DUE. 1 UNIT INSULIN GIVEN. PT PLAYING ON PHONE. NO ADDITONAL REQUESTS OR COMPLAINTS. PT DECLINES DINNER, CHICKEN SOUP ORDERED PER PT REQUEST. CALL LIGHT WITHIN REACH. BED RAILS UP.
--- NOTE | 2022-04-28 17:24 | NUR ---
PT HERE FOR CELLULITIS OF LEFT STUMP AND RIGHT DARBY. PT UP TO STAND WITH 1 PERSON ASSIST AND FRONT WHEEL WALKER THIS SHIFT. PT VOIDS WHEN STANDING AND HAS OTHERWISE REFUSED TIME OUT OF BED THIS SHIFT. PT TOLERATING 60G CARB DIET WITH ADJUSTMENTS MADE TO MEAL ORDERS. BLOOD SUGAR CHECKS WITH SLIDING SCALE INSULIN GIVEN. PT REPORTS ONGOING 9/10 PAIN THIS SHIFT WITH PRN PAIN MEDICATIONS GIVEN. DRESSINGS TO RIGHT DARBY AND LEFT STUMP CHANGED, PHOTOGRAPHS TAKEN. OTHER WOUNDS UNCHANGED. PT AFEBRIAL THIS SHIFT. PT VOIDING QUANTITY SUFFICIENT. BED BATH THIS SHIFT. PT USES CALL LIGHT AND MAKES NEEDS KNOWN.
--- NOTE | 2022-04-28 18:16 | NUR ---
PATIENT IN BED AFTER USING RESTROOM. VITALS AND I/O'S ARE COMPLETED. NO OTHER NEEDS AT THIS TIME. CALL LIGHT WITHIN REACH.
--- NOTE | 2022-04-28 18:30 | NUR ---
THIS RN TO ROOM TO CHECK ON PT. PT VISITING WITH RESIDENTIAL MORTGAGE MANAGER. PT REPORTS 9/10 PAIN IN LEFT DARBY/LEG. PT REQUESTS PAIN MEDIATION (SEE MAR FOR MEDICATION GIVEN). PT CONTINUES COMPLAINING ABOUT HOW THERE IS "NO WAY I CAN FIND A RIDE" TO HIS FOLLOW UP APPOINTMENTS. PT OFFERED OPTIONS AND GIVEN TAXI AND OTHER NUMBERS TO CALL. PT DECLINES. PT HAS CANDY AT BEDSIDE, EDUCATION DONE WITH PT. PT VERBALIZES UNDERSTANDING OF EFFECT OF BLOOD SUGAR ON INFECTION. NO ADDITIONAL REQUESTS OR COMPLAINTS. CALL LIGHT WITHIN REACH. BED RAILS UP.
--- NOTE | 2022-04-28 19:15 | NUR ---
SHIFT REPORT FROM HARI RN, PT HAS HAD MULTIPLE COMPLAINTS TODAY THESE HAVE BEEN ADRESSED WITH AND HARI REPORTS SHE HAS PROVIDED COPIOUS AMOUNTS OF EDUCATIONS ON DISEASE PROCESS AND PLAN OF CARE GOING FORWARD. PER REPORT PT DOES NOT RETAIN OR DELINES TO EXCEPT EDUCATION OF DISEASE PROCESS AND REQUIREMENTS TO [facility]CHIEVE [facility] PLAN GOING FORWARD.
--- NOTE | 2022-04-28 20:30 | NUR ---
ROUNDING WITH PT ABX AND HS MEDS, ASSESSMENT COMPLETE, PT CONTINUES TO QUESTION, AND GIVE COMPLAINT ABOUT HEALTH [place] AND NOT LISTENING TO HIM. PER SHIFT REPORT HAD MULTIPLE DISCUSSIONS WITH PT TODAY IN REGARDS TO HIS CARE PLAN, AND DISEASE PROCESS. EDUCATION ON DISEASE PROCESS AND CARE PLAN GOING FORWARD GIVEN WITH EMPHASIS ON DM, INFECTIOUS PROCESS AND SELF CARE WITH FOLLOW UP.
--- NOTE | 2022-04-28 21:35 | NUR ---
PT REQUESTED JELLO, WELL PAIN MEDICATION. PRN MEDICATION ADM FOR 9/10 PAIN IN LEFT STUMP, WELL RLL.
--- NOTE | 2022-04-29 00:05 | NUR ---
INTO PT ROOM TO PROVIDE PAIN MEDICATION PER PT REQUEST 06/15 PAIN AT HIS RLE, AND L STUMP. ALSO NOTED THAT PT HAS REMOVED DRESSING FROM STUMP, NEW DRESSING PLACED WITH ABD AND CURLEX WRAP, PT IV NOTED TO BE LEAKING, PT REPORTS IT IS PAINFUL, THIS IV FROM L FA REMOVED, WILL PLACE NEW IV.
--- NOTE | 2022-04-29 01:08 | NUR ---
IV ATTEMPT X2. BOTH UNSUCESSFUL.
--- NOTE | 2022-04-29 01:09 | NUR ---
ATTEMPTS X 2 FOR IV ACCESS UNSUCCESSFUL
--- NOTE | 2022-04-29 01:19 | NUR ---
THIS RN HAS ATTEMPTED TWICE TO START NEW IV SITE, ALSO ISIDRO RN IN CCU HAS ATTEMPTED TWICE, THEN SLIVER FORMER SAMUEL HAS ATTEMPTED WITHOUT SUCCESS. SLIVER FORMER SAID HE WOULD SEE IF HE COULD FREE AN ER NURSE TO COME ATTEMPT. WILL UPDATE WHEN SHE IS AVAILABLE. PT HAS NO MEDICATIONS DUE AT THIS TIME.
--- NOTE | 2022-04-29 02:15 | NUR ---
PT VERBALIZED TO THIS RN THAT HE DOES NOT WANT TO HAVE LABS DRAWN THIS AM AT 0500 DUE TO ALL THE NEEDLE POKES THIS EVENING. THIS HAS BEEN ARRAGED WITH LAB TO WAIT FOR DAYSHIFT TO NOTIFY THEM TO WHEN PT IS WILLING TO HAVE LABS DRAWN. HE STATES HE IS NOT REFUSING.
--- NOTE | 2022-04-29 02:17 | NUR ---
CALL LIGHT ON. EMPTIED URINAL. LARGE BAND AID FOR RIGHT WRIST PROVIDED. PRIMARY RN IS AWARE.
--- NOTE | 2022-04-29 04:00 | NUR ---
PT RESTING QUIELTY IN BED EYES CLOSED, EYE BUDS IN PLACE. NO DISTRESS NOTED. CALL LIGHT IN REACH
--- NOTE | 2022-04-29 05:34 | NUR ---
PT REQUEST PAIN MEDICATIONS AND A PUDDING THIS AM, TRAMADOL PRN AND SUGAR FREE VANILLA PROVIDED. PT RESTING IN BED ALERT AND ORIENTED, V/S, I/O AND ASSESSMENT COMPLETE. NOTED REDNESS ON LEFT STUMP AND RLE IMPROVING.
--- NOTE | 2022-04-29 05:59 | NUR ---
PT HAS LOST HIS IV SITE, AFTER MULTIPLE ATTEMPTS A PICC/MIDLINE CONSULT ORDER IS PLACED. HE HAS DECLINED TO HAVE HIS LABS DRAWN THIS AM, HE SAID HE WOULD ALLOW A DRAW LATER IN THE AM. HE HAS SLEPT WELL INTERMITTENLY AND HAS REQUESTED PAIN COVERAGE FOR PAIN 06/15 WHEN PAIN MEDICATIONS ARE AVAILABLE. HE HAS HAD NO NAUSEA OVER SHIFT, NO FEVERS. HE AMBULATES WELL 1PA WITH FWW, RE-DRESSED LEFT STUMP AFTER PT REMOVED PRIOR DRESSING. NO NEW CONCERNS OVER SHIFT.
--- NOTE | 2022-04-29 07:37 | NUR ---
Report received from Elena ANGEL. Pt resting in bed with eyes closed, allowed to rest undisturbed at this time. Call light in reach, will continue plan of care.
--- NOTE | 2022-04-29 08:19 | NUR ---
PT BS TAKEN & DOCUMENTED. PT USED URINAL THEN CHANGED GOWN DUE TO DAMPNESS FROM SWEATING. GVAE PT WARM WASH CLOTH TO WASH FACE/HANDS/NECK/UNDERARMS. PT WAS WANTING TO SPEAK TO CASE MANAGEMENT ABOUT AN APPOINTMENT HE HAS TOMORROW. WILL RELAY MESSAGE. BACK IN BED RESTING. RN IN ROOM. CALL LIGHT IN REACH.
--- NOTE | 2022-04-29 08:38 | NUR ---
Scheduled medications administered and assessment complete. Pt compliant with cares this am and conversational with this RN and RETAIL SHIFT LEADER. R wound dressing c/d/i, drainage noted underneath but not leaking or bubbling. Pt states dressing on L stump from this am "fell off" and it is STORAGE BATTERY TESTER. Pain medication administered PRN, will round back to dress wounds after meds "kick in" for patient. Pt requests to speak with case management today. No further needs at this time, breakfast delivered, call light in reach
--- NOTE | 2022-04-29 10:55 | NUR ---
I was able to meet with Almas this morning regarding his home care. Almas was on the phone texting or doing some activity the entire time that I was talking to him. He answered questions appropriately but never stopped looking at his phone, he did not make eye contact with me, and did seem a bit annoyed that I was in the room, asking "Who are you and what do you want?" I stated that I was doing his case managment assessmet, he stated "I have had those a lot of times and I need a washer and a dryer to do my laundry, and I have a lot of needs." Almas also shared that he would be returning home to live with his son, he states that he feels safe living with his son but he is home alone all day and he gets depressed. He states that he is not getting social security, he does get food stamps, but he needs more money. He states that he misses appointments because his transportation "does not show up" and he states that his son works six days per week and "has his own things to take care of." He feels his care has been "o.k." while here in the hospital but he indicates that he would also like people to do more for him. When I asked about what he could do for himself he reminds me of his amputation and states "what do you think" No further information was obtained at this time.
--- NOTE | 2022-04-29 11:19 | NUR ---
Pt provided with PRN tramadol for pain to BLE. Pt resting in bed with eyes closed and ear buds in place listening to music. He is cooperative with POC at this time with RN and requests followup with his concerns regarding appointment rescheduling and prescription refill.
--- NOTE | 2022-04-29 14:00 | NUR ---
[facility] [place] (as told by the patient) phoned by this RN to question about pt upcoming appointment, they state that pt has been seen once on 04/19 and does not have an upcoming appointment in the books.
--- NOTE | 2022-04-29 14:08 | NUR ---
PFM Cathi Chow called for patient. Office states that they have not received any records from any pain clinics for this patient, and they will continue to check records and call back. Office notififed of hospitalization per pt numerous requests.
--- NOTE | 2022-04-29 15:10 | NUR ---
This RN called [facility] again to verify appointment/records as patient states he has "never been to the [facility], ever", they clarify that patient actually had an appointment scheduled on 04/19/22 and did not appear for appointment.
--- NOTE | 2022-04-29 16:56 | NUR ---
In room with patient while Mitali RN starts US guided IV. Pt anxious, demanding and while he is compliant with IV start, quickly requests removal. Extensive education provided and IV patent. Labs drawn. Pt continues to state needing removal. Removed per pt demand. Consulted with Dr Perales, transmitter engineer in charge, water softener service supervisor.
--- NOTE | 2022-04-29 16:56 | NUR ---
WAS ASKED TO PLACE AN ULTRASOUND IV THE PT IS A DIFFICULT IV START AND HAS NO ACCESS CURRENTLY. PT EDUCATED ABOUT THE USE OF ULTRASOUND. PT STATES HIS IV STARTS HAVE BEEN HURTING. EXPLAINED TO PT THAT LIDOCAINE COULD BE USED TO ASSIST WITH THIS. PT AGREEABLE TO THIS. PT REQUESTS HIS IV BE IN HIS LEFT FOREARM AND REFUSED FOR HIS IV TO BE IN THE AC OF THIS ARM. A VEIN WAS FOUND AND WAS LARGE ENOUGH FOR A 20G IV. THE VEIN WAS ACCESSED ON THE FIRST ATTEMPT AFTER LIDOCAINE ADMINISTRATION. THE IV DRAWS BLOOD AND FLUSHES EASILY. THE PT GRIMACING AND STATES THE IV IS BURNING WITH FLUSHING. THE IV REMAINS DRAWING BLOOD EASILY. THE CATHETER VISUALIZED WITHIN THE VEIN. NO SWELLING NOTED WITH FLUSHING. THE PT STATES, "I WILL START SCREAMING IN 3 SECONDS IF YOU DON'T TAKE THIS OUT". IV REMOVED. PRESSURE DRESSING APPLIED. WARM PACK PROVIDED. PT STATES THIS IS HELPING WITH THE BURNING OF HIS ARM. PT'S RN IN THE ROOM DURING THIS ENCOUNTER. NOTIFIED.
--- NOTE | 2022-04-29 18:43 | NUR ---
PRN tramadol administered and wound care complete to L stump, wound cleanser used, medihoney applied, allevyn applied and kerlex and coban applied- pt requests to apply himself- this RN supervises and pt does well and demonstrates ability. Pt cooperative with this RN. Pt requests different dinner and kitchen called. pt has no further needs. call light in reach
--- NOTE | 2022-04-29 19:20 | NUR ---
SHIFT REPORT FROM PERLA ANGEL, PT HAD IV SITE PLACED VIA ULTRA SOUND THAT HE DEMANDED TO HAVE REMOVED, HE WILL HAVE ANOTHER PICC LINE CONSULT TOMORROW, IS AWARE. PT HAS HAD MULTIPLE COMPLAINTS THROUGHOUT THE DAY THAT STAFF HAS ADDRESSED. INCLUDING PAIN CLINIC APPOINTMENT, TRANSPORTATION CONCERNS, AND FURTHER REQUESTS FROM CASE MANAGEMENT SUCH HE WOULD LIKE THE HOSPITAL TO PROVIDE HIM WITH NEW WASHER AND DRYER. PT CONTINUES TO RECEIVE EDUCATION ABOUT DISEASE PROCESS, INFECTION PROCESS, AND CONTINUED CARE PLAN FOR AFTER DISCHARGE. PT CONTINUES TO VERBALIZED CONCERNS WITH TRANSPORTATION DESPITE RESOURCES AND CONTACTS BEING PROVIDED FOR TRANSPORTATION.
--- NOTE | 2022-04-29 21:30 | NUR ---
PHILIPP BUNCHA INTO PT ROOM FOR SCHEDULED ACCU CHECK TEST, PT WAS SLEEPING WITH EAR PHONES IN HIS EARS, SAMPARISH SAID SHE TRIED TO JUST MAKE NOISE IN THE ROOM, SUCH FLUSHING TOILET AND SAYING HIS NAME, WHEN HE DID NOT WAKE SHE PATTED HIS HAND HE HAS ASKED FOR WAKING, PT OPENED HIS EYE AND STARTED YELLING AT PHILIPP THAT SAY, WHY CANT YOU PEOPLE GET IT THROUGH YOUR HEADS THAT THAT IS NOT HOW TO WAKE ME UP, I HAVE TOLD YOU ALL AND TOLD YOU ALL. PHILIPP PERFORMED HER TASK AND REPORTED TO THIS RN WHAT HAD TRANSPIRED, THIS RN INTO PT ROOM TO DISCUSS WITH PT THAT YELLING AT STAFF IS NOT EXCEPTABLE AT THIS FACILITY, PT THEN SAID "I DIDNT YELL AT HER, I ASKED TO IN MY REGULAR VOICE TO NOT WAKE ME UP LIKE THAT, DO NOT STAND AT THE DOOR AND YELL AT ME" THIS RN SAID THE STORIES DONT MATCH, BUT GOING FORWARD WE NEED TO ALL BE RESPECTFUL OF EACHOTHER.
--- NOTE | 2022-04-29 21:48 | NUR ---
THIS FROZEN MEAT CUTTER CAME IN TO THE ROOM. PATIENT'S EYES WERE CLOSED WITH EARPHONE. THIS FROZEN MEAT CUTTER CALLED HIS NAME SEVERAL TIMES, UPDATED THE WHITE BOARD TIDIED THE ROOM AND PICKED UP SOME GARBAGE. PATIENT STILL DID NOT REPLY NOR OPEN HIS EYES. THIS FROZEN MEAT CUTTER CAME TO LIGHTLY TOUCHED HIS LEFT FOREARM AT THE SAME TIME CALLING HIS NAME. PATIENT OPEN HIS EYES AND GOT MAD STATING "YOU KNOW THAT I HAVE MY EARPHONE I CANNOT HEAR, EVERYONE KNOWS THAT". V/S AND BLOOD SUGAR CHECK DONE AND CHARTED. ORACLE DATABASE ARCHITECT AND PRIMARY RN NOTIFIED REGARDING THE PATIENT'S BEHAVIOR.
--- NOTE | 2022-04-30 01:04 | NUR ---
PT CALLED TO REQUEST PAIN MEDICATIONS AT THIS TIME. PT ADMINISTERED TRAMADOL PRN AT THIS TIME. PT REPORTS PAIN 9/10 AT STUMP AND RLE. HE VERY POLITE WITH REQUEST AND THANKED THIS RN FOR CARE.
--- NOTE | 2022-04-30 04:38 | NUR ---
PT HAS SLEPT OVER SHIFT, HE HAS CALLED TO REQUEST PAIN MEDICATION WHEN NEEDED, HE HAS BEEN ANGRY ABOUT BEING WOKE, STAFF WILL WAIT TO PROVIDE CARE WHEN PT CALLS. STAFF ROUNDS REGULAR TO MONITOR PT RESP RATE AND COMFORT/SAFETY WITHOUT WAKING. NO NEW CONCERNS THIS SHIFT.
--- NOTE | 2022-04-30 06:50 | NUR ---
PT ASKED THIS RN "WOULD YOU PLEASE LET PHILIPP KNOW THAT I AM VERY SORRY ABOUT HOW I SPOKE TO HER LAST NIGHT, I JUST WAS SO UPSET WITH THINGS GOING ON AT HOME" PT ASKED FOR CUP OF COFFEE THIS IS PROVIDED, HE ALSO REPORTS PAIN 9/10 AND IS ADMINSITERED 2 TABS OF NORCO PRN, PT REPORTS PAIN AT LEFT STUMP AND RLE.
--- NOTE | 2022-04-30 07:05 | NUR ---
Report received from Elena ANGEL. Pt resting in bed, A+O, states no needs. Call light in reach, will continue plan of care.
--- NOTE | 2022-04-30 08:21 | NUR ---
Scheduled medications administered and assessment complete. Pt resting in bed, A+O, pleasant this am. 5units insulin provided per order, pt self administers with this RN supervision. LSC, HRR, bowel tones active. Dressing to R norton c/d/i, no leaking or bubbling under actecote dressing. Dressing to L stump c/d/i. PRN tramadol administered for 9/10 pain, pt states pain level does not decrease from 9. Pt states no needs at this time, cooperative with care.
--- NOTE | 2022-04-30 08:25 | NUR ---
PT BS TAKEN AND DOCUMENTED. PT WAS POLITE & RESPECTFUL THIS AM. GIVEN WARM WASH CLOTH FOR FACE/HANDS. REFILLED WATER, GIVEN COFFEE. STATED HE WAS STILL FEELING "THE SWEATS" I LEFT A NEW GOWN NEXT TO HIM TO BE ABLE TO CHANGE IF HE NEEDED TO. PT WAS GRATEFUL FOR THE CARE & NO OTHER REQUESTS AT THIS TIME. CALL LIGHT IN REACH.
--- NOTE | 2022-04-30 09:02 | NUR ---
Pt allowed to rest undisturbed at this time.
--- NOTE | 2022-04-30 11:15 | NUR ---
Rounded on patient and discussed pain medication options, none available per timing at this time, he is cooperative, call light in reach.
--- NOTE | 2022-04-30 12:20 | NUR ---
No insulin provided as CBG WNL. Dressing changed to R [place]on per wound care orders. Pt medicated with 2 tabs norco PRN. Cooperative with all care.
--- NOTE | 2022-04-30 13:59 | NUR ---
SIGN ON DO REQUESTS THAT PT NOT BE DISTURBED. WILL FOLLOW
[2022-04-30] MEDS ORDERED: AVIDOXY100 MG PO (14:25)
--- NOTE | 2022-04-30 14:55 | NUR ---
PATIENT IS ON A 59 GM CONS CARB DIET. 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 DIETARY HAS HIS FOOD PREFERENCES NOTED. HIS APPETITE WAS POOR ON ADMISSION. HE IS NOT EATING MUCH AT MEALS NOW. WE OFFER HIM OTHER OPTIONS AND HE OFTEN DECLINES. WILL CONTINUE TO WORK WITH PATIENT BEST WE CAN WITHIN HIS DIET LIMITS SO HE RECEIVES ADEQUATE NUTRITION.
--- NOTE | 2022-04-30 15:49 | NUR ---
Discharge teaching provided and patient provided with paperwork and followup appointments with PCP and with outpatient wound care. He is dressed, no IV, belongings collected, VSS. Pt has no needs. Ulises dhillon called for patient.
--- NOTE | 2022-04-30 16:03 | NUR ---
Notified by Dr. Perales, pt will dc today. Staff and scheduled appt with pcp, he will go to for wound care weekly.
== END 2022-04-30 15:55 | disposition home or self-care (01) | DRG 565 ==
LOC: ED 17:37 → MS 21:09
PROVIDERS: ADMIT Internal Medicine; ATTEND Internal Medicine
DX: T87.44 Infection of amputation stump, left lower extremity (principal); E87.2 Acidosis; L03.115 Cellulitis of right lower limb; L03.116 Cellulitis of left lower limb; T81.44XA Sepsis following a procedure, initial encounter; Z20.822 Contact with and (suspected) exposure to COVID-19; E11.40 Type 2 diabetes mellitus with diabetic neuropathy, unspecified; G89.4 Chronic pain syndrome; E11.51 Type 2 diabetes mellitus with diabetic peripheral angiopathy without gangrene; F17.210 Nicotine dependence, cigarettes, uncomplicated; I25.2 Old myocardial infarction; Z91.14 Patient's other noncompliance with medication regimen; Z88.0 Allergy status to penicillin; Z88.1 Allergy status to other antibiotic agents; Z89.422 Acquired absence of other left toe(s); Z90.49 Acquired absence of other specified parts of digestive tract; Z90.89 Acquired absence of other organs; Z98.890 Other specified postprocedural states; Z79.2 Long term (current) use of antibiotics; Z79.82 Long term (current) use of aspirin; Z79.4 Long term (current) use of insulin; Z79.899 Other long term (current) drug therapy; Y83.5 Amputation of limb(s) as the cause of abnormal reaction of the patient, or of later complication, without mention of misadventure at the time of the procedure
CPT/HCPCS: 36415; 71045; 80048; 80053; 81001; 82010; 82803; 83605; 83735; 84100; 85025; 87040; 87502; 93005; 93010; C9803; J0878; J1815; J2270; J3475; J7030; Q0177; U0003